=== PATIENT | female | born 1975 | race Caucasian/White ===

== ENCOUNTER 2017-04-29 19:43 | Observation (INO) | payer OTHER ==
[2017-04-29 20:30] LABS: URINE APPEARANCE CLEAR; URINE BILIRUBIN NEGATIVE (NEGATIVE); URINE COLOR LTYELLOW; URINE GLUCOSE (UA) NEGATIVE (NEGATIVE); URINE KETONE NEGATIVE (NEGATIVE); URINE NITRITE NEGATIVE (NEGATIVE); URINE PROTEIN NEGATIVE (NEGATIVE); URINE UROBILINOGEN NEGATIVE E.U./dl (0.2-1.0)
[2017-04-29 21:01] LABS: URINE BLOOD 1+ (NEGATIVE); URINE LEUK ESTERASE TRACE (NEGATIVE)
[2017-04-29] MEDS ORDERED: ACETAMINOPHEN 325 MG TABLET (FP) PO ONE (21:13)
[2017-04-29] MEDS ORDERED: ACETAMINOPHEN 325 MG TABLET (FP) ONE (21:16)
[2017-04-29 21:33] LABS: URINE MUCUS RARE; URINE RBC 1 /hpf (0-3); URINE WBC 6 /hpf (3-5)
--- NOTE | 2017-04-29 21:37 | PDOC ---
History of Present Illness - History of Present Illness Initial Comments: 04/29/17 23:19 Patient is a 41 year old female with significant medical hx of asthma, anemia, and anxiety who is presenting to the ED with one week of dizziness, nausea, frontal headache, and suprapubic pain. The patient reports that her dizziness is vertiginous, feeling as though the room is spinning. The patient's headache is not associated with any photophobia, vomiting, or weakness. She also denies any vomiting, diarrhea, fever, chills or urinary complaints. Patient reports she saw her doctor in the [facility] one month ago and said that one of her lab findings came back too low but she didn't have enough time to follow up. The patient also endorses concern for diabetes. Allergies: Penicillin Surgical Hx: Cholecystectomy <Kristen Dykes - Last Filed: 04/30/17 00:54> <Melania Wallace - Last Filed: 05/01/17 01:33> - General Chief Complaint: Pain Stated Complaint: DIZZINESS Time Seen by Provider: 04/29/17 21:27 Past History <Kristen Dykes - Last Filed: 04/30/17 00:54> - Past Medical History Anemia: Yes Asthma: Yes Kidney Stones: Yes - Surgical History Cholecystectomy: Yes - Immunization History Immunization Up to Date: No - Psycho/Social/Smoking Cessation Hx Anxiety: Yes Suicidal Ideation: No Smoking History: Current every day smoker Have you smoked in the past 12 months: Yes Number of Cigarettes Smoked Daily: 4 Information on smoking cessation initiated: No 'Breaking Loose' booklet given: 03/27/16 Hx Alcohol Use: No Drug/Substance Use Hx: No Substance Use Type: None Hx Substance Use Treatment: No <Melania Wallace - Last Filed: 05/01/17 01:33> - Past Medical History Allergies/Adverse Reactions: Allergies Allergy/AdvReac Type Severity Reaction Status Date / Time Penicillins Allergy Verified 04/29/17 19:51 Review of Systems - Review of Systems Comments:: 04/29/17 23:25 CONSTITUTIONAL: Absent: fever, chills, diaphoresis, generalized weakness, malaise, loss of appetite HEENT: Absent: rhinorrhea, nasal congestion, throat pain, throat swelling, difficulty swallowing, mouth swelling, ear pain, eye pain, visual changes CARDIOVASCULAR: Absent: chest pain, syncope, palpitations, irregular heart rate, lightheadedness , peripheral edema RESPIRATORY: Absent: cough, shortness of breath, dyspnea with exertion, orthopnea, wheezing, stridor, hemoptysis GASTROINTESTINAL: Present: nausea, suprapubic pain Absent: abdominal distension, vomiting, diarrhea, constipation, melena, hematochezia GENITOURINARY: Absent: dysuria, frequency, urgency, hesitancy, hematuria, flank pain, genital pain MUSCULOSKELETAL: Absent: myalgia, arthralgia, joint swelling SKIN: Absent: rash, itching, pallor HEMATOLOGIC/IMMUNOLOGIC: Absent: easy bleeding, easy bruising, lymphadenopathy, frequent infections ENDOCRINE: Absent: unexplained weight gain, unexplained weight loss, heat intolerance, cold intolerance NEUROLOGIC: Present: frontal headache, dizziness Absent: focal weakness or paresthesia, unsteady gait, seizure, mental status changes, bladder or bowel incontinence. PSYCHIATRIC: Absent: anxiety, depression, suicidal or homicidal ideation, hallucinations <Donis,Kristen - Last Filed: 04/30/17 00:54> *Physical Exam - Vital Signs Last Vital Signs Temp Pulse Resp BP Pulse Ox 99 F 81 18 119/74 100 04/29/17 19:53 04/29/17 19:53 04/29/17 19:53 04/29/17 19:53 04/29/17 19:53 - Physical Exam Comments: 04/29/17 23:26 GENERAL: Well developed, well nourished. Awake and alert. No acute distress. HEENT: Normocephalic, atraumatic. PERRLA, EOMI. No conjunctival pallor. Sclera are non- icteric. Moist mucous membranes. Oropharynx is clear. NECK: Supple. Full ROM. No JVD. Carotid pulses 2+ and symmetric, without bruits. No thyromegaly. No lymphadenopathy. CARDIOVASCULAR: Regular rate and rhythm. No murmurs, rubs, or gallops. Distal pulses are 2+ and symmetric. PULMONARY: No evidence of respiratory distress. Lungs clear to auscultation bilaterally. No wheezing, rales or rhonchi. ABDOMINAL: Soft. Non-tender. Non-distended. No rebound or guarding. No organomegaly. Normoactive bowel sounds. MUSCULOSKELETAL: Normal range of motion at all joints. No bony deformities or tenderness. No CVA tenderness. EXTREMITIES: No cyanosis. No clubbing. No edema. No calf tenderness. SKIN: Warm and dry. Normal capillary refill. No rashes. No jaundice. NEUROLOGICAL: Alert, awake, appropriate. Cranial nerves 2-12 intact. Normal speech. PSYCHIATRIC: Cooperative. Good eye contact. Appropriate mood and affect. <DonisKristen - Last Filed: 04/30/17 00:54> - Vital Signs Last Vital Signs Temp Pulse Resp BP Pulse Ox 99 F 81 18 119/74 100 04/29/17 19:53 04/29/17 19:53 04/29/17 19:53 04/29/17 19:53 04/29/17 19:53 <Melania Wallace - Last Filed: 05/01/17 01:33> ED Treatment Course - LABORATORY CBC & Chemistry Diagram: 04/29/17 22:05 04/29/17 22:05 - ADDITIONAL ORDERS Additional order review: Laboratory Results 04/29/17 04/29/17 04/29/17 23:00 22:05 20:13 Sodium 142 Potassium 3.6 Chloride 109 H Carbon Dioxide 24 Anion Gap 9 BUN 21 H Creatinine 0.7 Creat Clearance w eGFR > 60 Random Glucose 122 H D Calcium 8.5 Total Bilirubin 0.3 AST 20 D ALT 28 D Alkaline Phosphatase 77 Total Protein 7.3 Albumin 3.8 Urine Color Ltyellow Urine Appearance Clear Urine pH 6.0 Urine Protein Negative Urine Glucose (UA) Negative Urine Ketones Negative Urine Blood 1+ H Urine Nitrite Negative Urine Bilirubin Negative Urine Urobilinogen Negative Ur Leukocyte Esterase Trace H Urine RBC 1 Urine WBC 6 Ur Epithelial Cells Rare Urine Mucus Rare Urine HCG, Qual Negative Blood Type O POSITIVE Antibody Screen Negative 04/29/17 22:05 RBC 4.29 MCV 65.8 L MCHC 29.1 L RDW 21.1 H D MPV 8.8 Neutrophils % 57.7 D Lymphocytes % 30.5 D Monocytes % 7.6 Eosinophils % 3.0 D Basophils % 1.2 - RADIOLOGY Radiograph Interpretation: 04/30/17 00:54 [place] Line Attendant: (savita) Report Date: 04/30/2017 00:13:00 Report Status: Preliminary Begin of Report Content Referring Physician: Melania Wallace Patient Name: Cathleen Esquivel THIS IS A PRELIMINARY REPORT FROM [facility] DATE OF SERVICE: 2017-04-30 00:13:57.0 IMAGES: 40 EXAM: Transabdominal pelvic ultrasound and duplex evaluation of the ovaries HISTORY:Rule out torsion COMPARISON: None. FINDINGS:The uterus measures 10.7 x 8 x 7.5 cm. There is a fundal fibroid measuring 4.7 x 3 x 4.7 cm. Endometrium is normal in thickness measuring 9 mm. Incidental note is made of a nabothian cyst. Right ovary measures 2.7 x 2.3 x 2.6 cm and the left ovary measures 2.5 x 1.6 x 2.4 cm. There is bilateral ovarian blood flow with arterial waveforms demonstrated. No free fluid. IMPRESSION: 1. No evidence for ovarian torsion. 2. Mildly enlarged uterus demonstrating a 4.7 cm fundal fibroid. THIS DOCUMENT HAS BEEN ELECTRONICALLY SIGNED Amalia MD Param 04/30/2017 00:50 MARY ALICE Robbins. Please call [facility]reader [phone] ([phone]) with questions. End of Report Content - Medications Given in the ED: ED Medications Discontinued Medications Generic Name Dose Route Start Last Admin Trade Name Freq PRN Reason Stop Dose Admin Acetaminophen 650 mg 04/29/17 21:13 04/29/17 21:17 Tylenol - PO 04/29/17 21:14 650 mg ONCE ONE Administration <Kristen Dykes - Last Filed: 04/30/17 00:54> - LABORATORY CBC & Chemistry Diagram: 04/30/17 07:20 04/30/17 07:20 - ADDITIONAL ORDERS Additional order review: Laboratory Results 04/29/17 20:13 Urine Color Ltyellow Urine Appearance Clear Urine pH 6.0 Urine Protein Negative Urine Glucose (UA) Negative Urine Ketones Negative Urine Blood 1+ H Urine Nitrite Negative Urine Bilirubin Negative Urine Urobilinogen Negative Ur Leukocyte Esterase Trace H Urine HCG, Qual Negative - Medications Given in the ED: ED Medications Discontinued Medications Generic Name Dose Route Start Last Admin Trade Name Freq PRN Reason Stop Dose Admin Acetaminophen 650 mg 04/29/17 21:13 04/29/17 21:17 Tylenol - PO 04/29/17 21:14 650 mg ONCE ONE Administration <Melania Wallace - Last Filed: 05/01/17 01:33> Medical Decision Making - Medical Decision Making 04/29/17 21:39 41 yo female p/w multiple complaints -she saw her PCP in the [facility] last month but could make it for followup =she was told she was very anemia -ROS 1-dizziiness 2-suprapubic discomfort 3-vaginal discomfort 4-frontal headache 5-nausea 6-coughing <Melania Wallace - Last Filed: 05/01/17 01:33> *DC/Admit/Observation/Transfer - Attestations Scribe Attestion: 04/29/17 23:26 Documentation prepared by Kristen Dykes, acting as medical staff coordinator for Melania Wallace MD. <Kristen Dykes - Last Filed: 04/30/17 00:54> <Melania Wallace - Last Filed: 05/01/17 01:33> Diagnosis at time of Disposition: Abdominal pain - Referrals
[2017-04-29 22:33] LABS: BASOPHIL 1.2 % (0-2.0); MCHC 29.1 g/dl (32.0-36.0); MEAN CELL VOLUME 65.8 fl (80-96); MEAN PLT VOLUME 8.8 fl (7.5-11.1); NEUTROPHILS 57.7 % (42.8-82.8); PLATELET COUNT 175 K/MM3 (134-434); RDW 21.1 % (11.6-15.6); WHITE BLOOD COUNT 4.8 K/mm3 (4.0-10.0)
[2017-04-29 23:10] LABS: ALBUMIN 3.8 g/dl (3.4-5.0); ANION GAP 9 (8-16); BILIRUBIN,TOTAL 0.3 mg/dL (0.2-1.0); CALCIUM 8.5 mg/dL (8.5-10.1); CO2 24 mmol/L (21-32); COCKROFT - GAULT 126.395; CREATININE 0.7 mg/dL (0.55-1.02); GLUCOSE,RANDOM 122 mg/dL (74-106); SGOT/AST 20 U/L (15-37); SGPT/ALT 28 U/L (12-78); TOT PROT 7.3 g/dl (6.4-8.2)
[2017-04-29 23:11] LABS: ALK PHOS 77 U/L (45-117)
[2017-04-29 23:14] LABS: MCH 19.1 pg (25.7-33.7)
[2017-04-29 23:24] LABS: INR 0.97 (0.82-1.09); PROTHROMBIN TIME (PATIENT) 10.7 SEC (9.98-11.88)
[2017-04-29] MEDS ORDERED: KETOROLAC TROMETHAMINE 30 MG/1 ML VIAL ONE (23:45)
[2017-04-29] MEDS ORDERED: KETOROLAC TROMETHAMINE 30 MG/1 ML VIAL IVPUSH ONE (23:50)
[2017-04-30] MEDS ORDERED: SODIUM CHLORIDE 1,000 ML IV STA (01:26)
[2017-04-30 01:46] LABS: ANISOCYTOSIS 2+; HYPOCHROMIA 2+; MICROCYTOSIS 2+
[2017-04-30] MEDS ORDERED: HYDROmorphone HCL CARPU-JECT 1 MG/1 ML DISP.SYRIN IVPB ONE (01:47)
[2017-04-30] MEDS ORDERED: HYDROmorphone HCL CARPU-JECT 1 MG/1 ML DISP.SYRIN ONE ×2 (01:50→06:59)
[2017-04-30] MEDS ORDERED: MAG HYDROX/AL HYDROX/SIMETH 30 ML UNIT-DOSE CUP PO ONE (03:33)
[2017-04-30] MEDS ORDERED: SUCRALFATE 1 GM TABLET (FP) PO ONE (03:33)
[2017-04-30] MEDS ORDERED: PANTOPRAZOLE SODIUM 40 MG in SODIUM CHLORIDE 100 ML IVPB ONE (03:33)
[2017-04-30] MEDS ORDERED: FAMOTIDINE 20 MG/50 ML IVPB 50 ML IVPB ONE ×2 (03:33→03:34)
[2017-04-30] MEDS ORDERED: PANTOPRAZOLE SODIUM 100 ML IVPB ONE (03:34)
[2017-04-30] MEDS ORDERED: MAG HYDROX/AL HYDROX/SIMETH 30 ML UNIT-DOSE CUP ONE (03:41)
[2017-04-30] MEDS ORDERED: SUCRALFATE 1 GM TABLET (FP) ONE (03:41)
--- NOTE | 2017-04-30 05:02 | PDOC ---
*Physical Exam - Vital Signs Last Vital Signs Temp Pulse Resp BP Pulse Ox 99 F 81 18 119/74 100 04/29/17 19:53 04/29/17 19:53 04/29/17 19:53 04/29/17 19:53 04/29/17 19:53 ED Treatment Course - LABORATORY CBC & Chemistry Diagram: 04/29/17 22:05 04/29/17 22:05 - ADDITIONAL ORDERS Additional order review: Laboratory Results 04/29/17 04/29/17 04/29/17 23:00 22:05 22:05 INR 0.97 D-Dimer < 200 Sodium Potassium Chloride Carbon Dioxide Anion Gap BUN Creatinine Creat Clearance w eGFR Random Glucose Calcium Total Bilirubin AST ALT Alkaline Phosphatase Total Protein Albumin Urine Color Urine Appearance Urine pH Urine Protein Urine Glucose (UA) Urine Ketones Urine Blood Urine Nitrite Urine Bilirubin Urine Urobilinogen Ur Leukocyte Esterase Urine RBC Urine WBC Ur Epithelial Cells Urine Mucus Urine HCG, Qual Blood Type O POSITIVE Antibody Screen Negative 04/29/17 04/29/17 22:05 20:13 INR D-Dimer Sodium 142 Potassium 3.6 Chloride 109 H Carbon Dioxide 24 Anion Gap 9 BUN 21 H Creatinine 0.7 Creat Clearance w eGFR > 60 Random Glucose 122 H D Calcium 8.5 Total Bilirubin 0.3 AST 20 D ALT 28 D Alkaline Phosphatase 77 Total Protein 7.3 Albumin 3.8 Urine Color Ltyellow Urine Appearance Clear Urine pH 6.0 Urine Protein Negative Urine Glucose (UA) Negative Urine Ketones Negative Urine Blood 1+ H Urine Nitrite Negative Urine Bilirubin Negative Urine Urobilinogen Negative Ur Leukocyte Esterase Trace H Urine RBC 1 Urine WBC 6 Ur Epithelial Cells Rare Urine Mucus Rare Urine HCG, Qual Negative Blood Type Antibody Screen 04/29/17 22:05 RBC 4.29 MCV 65.8 L MCHC 29.1 L RDW 21.1 H D MPV 8.8 Neutrophils % 57.7 D Lymphocytes % 30.5 D Monocytes % 7.6 Eosinophils % 3.0 D Basophils % 1.2 - Medications Given in the ED: ED Medications Discontinued Medications Generic Name Dose Route Start Last Admin Trade Name Freq PRN Reason Stop Dose Admin Acetaminophen 650 mg 04/29/17 21:13 04/29/17 21:17 Tylenol - PO 04/29/17 21:14 650 mg ONCE ONE Administration Al Hydroxide/Mg Hydroxide 30 ml 04/30/17 03:33 04/30/17 03:44 Mylanta Oral Suspension - PO 04/30/17 03:34 30 ml ONCE ONE Administration Hydromorphone HCl 0.5 mg 04/30/17 01:47 04/30/17 01:58 Dilaudid Injection - IVPB 04/30/17 01:48 0.5 mg ONCE ONE Administration Sodium Chloride 1,000 mls @ 1,000 mls/hr 04/30/17 01:26 04/30/17 01:58 Normal Saline - IV 04/30/17 02:25 1,000 mls/hr ASDIR STA Administration Pantoprazole Sodium 40 mg/ 100 mls @ 200 mls/hr 04/30/17 03:33 04/30/17 03:45 Sodium Chloride IVPB 04/30/17 04:02 200 mls/hr ONCE ONE Administration Famotidine/Sodium Chloride 50 mls @ 100 mls/hr 04/30/17 03:33 04/30/17 03:40 Pepcid 20 Mg Premixed Ivpb - IVPB 04/30/17 04:02 100 mls/hr ONCE ONE Administration Ketorolac Tromethamine 30 mg 04/29/17 23:50 04/29/17 23:50 Toradol Injection - IVPUSH 04/29/17 23:51 30 mg NOW ONE Administration Sucralfate 1 gm 04/30/17 03:33 04/30/17 03:44 Carafate - PO 04/30/17 03:34 1 gm ONCE ONE Administration Medical Decision Making - Medical Decision Making 04/30/17 05:01 Case signed out to me by DR. Wallace. Patient re-examined by me. Labs and imaging reviewed. No acute findings. Patient continues to have persistent abdominal pain despite numerous medications. Decision was made to observe patient. Case discussed with DR. Valenzuela. Pt to be placed on med/surg obs *DC/Admit/Observation/Transfer Diagnosis at time of Disposition: Abdominal pain Qualifiers: Abdominal location: unspecified location Qualified Code(s): R10.9 - Unspecified abdominal pain - Discharge Dispostion Condition at time of disposition: Stable Admit: Yes - Referrals Referrals: STAFF,NOT ON [Primary Care Provider] - - Patient Instructions - Post Discharge Activity
--- NOTE | 2017-04-30 05:19 | HP ---
CHIEF COMPLAINT: abdominal pain PCP: [facility] [place] HISTORY OF PRESENT ILLNESS: This is a 41 year old female with a past medical history of asthma, anemia, anxiety and kidney stones who presented to the ED with a complaint of dizziness , nausea, headache and suprapubic pain for about one week. Pt reports she has taken multiple medications over the past week but the pain has always returned. Pt is concerned about diabetes as her PCP recently told her that she was borderline. She is also concerned about her anemia as her recent lab work indicated she may need a transfusion. Pt states her LMP was 04/15/17 and it was normal. She denies any chest pain, palpitations, vomiting, diarrhea, constipation, dysuria, frequency or urgency. At present, pt reports pain not as severe as was but is afraid it will recur. ER course was notable for: (1) Hgb 8.2, glucose 122 (2) us c/w ovarian cyst and uterine fibroid (3) CT done Recent Travel: pt denies PAST MEDICAL HISTORY: asthma anemia renal stones PAST SURGICAL HISTORY: cholecystectomy Social History: Smokin cig/day Alcohol: occ- last drink 2-3 weeks ago Drugs: pt denies Family History: mother alive and well, thyroid issue and migraines father in his 30s, HIV/AIDS related 4 sisters- 1 with migraines and 1 with ovary problems 1 brother- no medical problems Allergies Penicillins Allergy (Verified 04/29/17 19:51) HOME MEDICATIONS: pt denies any routine home medications REVIEW OF SYSTEMS CONSTITUTIONAL: Absent: fever, chills, diaphoresis, generalized weakness, malaise, loss of appetite, weight change HEENT: Absent: rhinorrhea, nasal congestion, throat pain, throat swelling, difficulty swallowing, mouth swelling, ear pain, eye pain, visual changes CARDIOVASCULAR: Absent: chest pain, syncope, palpitations, irregular heart rate, lightheadedness , peripheral edema RESPIRATORY: Absent: cough, shortness of breath, dyspnea with exertion, orthopnea, wheezing, stridor, hemoptysis GASTROINTESTINAL: abdominal pain, nausea Absent: abdominal distension, vomiting, diarrhea, constipation, melena, hematochezia GENITOURINARY: Absent: dysuria, frequency, urgency, hesitancy, hematuria, flank pain, genital pain MUSCULOSKELETAL: Absent: myalgia, arthralgia, joint swelling, back pain, neck pain SKIN: Absent: rash, itching, pallor HEMATOLOGIC/IMMUNOLOGIC: Absent: easy bleeding, easy bruising, lymphadenopathy, frequent infections ENDOCRINE: Absent: unexplained weight gain, unexplained weight loss, heat intolerance, cold intolerance NEUROLOGIC: headache, dizziness Absent: focal weakness or paresthesias, unsteady gait, seizure, mental status changes, bladder or bowel incontinence PSYCHIATRIC: Absent: anxiety, depression, suicidal or homicidal ideation, hallucinations. PHYSICAL EXAMINATION Vital Signs - 24 hr 3 04/29/17 19:53 Temperature 99 F Pulse Rate 81 Respiratory 18 Rate Blood Pressure 119/74 O2 Sat by Pulse 100 Oximetry (%) GENERAL: Awake, alert, and fully oriented, in no acute distress. HEAD: Normal with no signs of trauma. EYES: Pupils equal, round and reactive to light, extraocular movements intact, sclera anicteric, conjunctiva clear. No lid lag. EARS, NOSE, THROAT: Ears normal, nares patent, oropharynx clear without exudates. Moist mucous membranes. NECK: Normal range of motion, supple without lymphadenopathy, JVD, or masses. LUNGS: Breath sounds equal, clear to auscultation bilaterally. No wheezes, and no crackles. No accessory muscle use. HEART: Regular rate and rhythm, normal S1 and S2 without murmur, rub or gallop. ABDOMEN: Soft, not distended, normoactive bowel sounds, no guarding, no rebound , no masses. No hepatomegaly or splenomegaly. tender to palpation suprapubic area MUSCULOSKELETAL: Normal range of motion at all joints. No bony deformities or tenderness. No CVA tenderness. UPPER EXTREMITIES: 2+ pulses, warm, well-perfused. No cyanosis. No clubbing. No peripheral edema. LOWER EXTREMITIES: 2+ pulses, warm, well-perfused. No calf tenderness. No peripheral edema. NEUROLOGICAL: Cranial nerves II-XII intact. Normal speech. Normal gait. PSYCHIATRIC: Cooperative. Good eye contact. Appropriate mood and affect. SKIN: Warm, dry, normal turgor, no rashes or lesions noted, normal capillary refill. Laboratory Results - last 24 hr 3 04/29/17 04/29/17 04/29/17 04/29/17 20:13 22:05 22:05 23:00 WBC 4.8 D RBC 4.29 Hgb 8.2 L Hct 28.2 L MCV 65.8 L MCHC 29.1 L RDW 21.1 H D Plt Count 175 MPV 8.8 Neutrophils % 57.7 D Lymphocytes % 30.5 D Monocytes % 7.6 Eosinophils % 3.0 D Basophils % 1.2 Hypochromic-Microcytic 2+ Anisocytosis 2+ Microcytosis 2+ INR 0.97 D-Dimer < 200 Sodium 142 Potassium 3.6 Chloride 109 H Carbon Dioxide 24 Anion Gap 9 BUN 21 H Creatinine 0.7 Creat Clearance w eGFR > 60 Random Glucose 122 H D Calcium 8.5 Total Bilirubin 0.3 AST 20 D ALT 28 D Alkaline Phosphatase 77 Total Protein 7.3 Albumin 3.8 Urine Color Ltyellow Urine Appearance Clear Urine pH 6.0 Urine Protein Negative Urine Glucose (UA) Negative Urine Ketones Negative Urine Blood 1+ H Urine Nitrite Negative Urine Bilirubin Negative Urine Urobilinogen Negative Ur Leukocyte Esterase Trace H Urine RBC 1 Urine WBC 6 Ur Epithelial Cells Rare Urine Mucus Rare Urine HCG, Qual Negative Blood Type O POSITIVE Antibody Screen Negative Imaging EXAM: Transabdominal pelvic ultrasound and duplex evaluation of the ovaries THIS IS A PRELIMINARY REPORT FROM [facility] REGISTERED NURSE DATE OF SERVICE: 2017-04-30 00:13:57.0 IMAGES: 40 HISTORY:Rule out torsion COMPARISON: None. FINDINGS:The uterus measures 10.7 x 8 x 7.5 cm. There is a fundal fibroid measuring 4.7 x 3 x 4.7 cm. Endometrium is normal in thickness measuring 9 mm. Incidental note is made of a nabothian cyst. Right ovary measures 2.7 x 2.3 x 2.6 cm and the left ovary measures 2.5 x 1.6 x 2.4 cm. There is bilateral ovarian blood flow with arterial waveforms demonstrated. No free fluid. IMPRESSION: 1. No evidence for ovarian torsion. 2. Mildly enlarged uterus demonstrating a 4.7 cm fundal fibroid. EXAM: CT ABDOMEN AND PELVIS WITH CONTRAST THIS IS A PRELIMINARY REPORT FROM [facility] REG[facility] NURSE IMAGES: 519 EXAM DATE AND TIME: 2017-04-30 02:18:06.0 No bowel obstruction, colitis, free fluid or free air. Appendix not seen. No pericecal inflammation to suggest acute appendicitis. Unremarkable pancreas and gallbladder. Subcentimeter cortical hypodensities and punctate nonobstructing stones bilateral kidneys. Right renal cortical scarring. Enlarged uterus containing a 4.5 cm fundal fibroid. 2.5 cm right ovarian cyst. Bilateral tubal ligation clips. Borderline hepatomegaly. ASSESSMENT/PLAN: 41yF with PMH asthma, anemia, anxiety, renal stones, cholecystectomy presented with dizziness, nausea, headache, abdominal pain. She is being admitted for further observation. suprapubic pain - likely due to ovarian cyst or fibroid, will need COMPARATIVE SOCIOLOGY PROFESSOR f/u as outpatient, pt aware of same - zofran PRN for nausea - nurse to call if further abdominal pain - NS @ 75cc/hr - COMPARATIVE SOCIOLOGY PROFESSOR consult ordered Anemia - repeat CBC in am - likely near baseline Hgb renal stones - not likely cause of pain, denies flank pain - observe for now. DVT PPX - low risk, expected LOS <48h, defer chemoprophylaxis for now. FEN - NS @ 75cc/hr - repeat BMP ordered for am - regular diet as tolerated, if vomiting, change to clear liquid Dispo: pt requires inpatient observation for management of her emergent condition Visit type - Emergency Visit Emergency Visit: Yes ED Registration Date: 04/29/17 Care time: The patient presented to the Emergency Department on the above date and was hospitalized for further evaluation of their emergent condition. - New Patient This patient is new to me today: Yes Date on this admission: 04/30/17 - Critical Care Critical Care patient: No
[2017-04-30] MEDS ORDERED: SODIUM CHLORIDE 1,000 ML IV SCH (06:00)
[2017-04-30] MEDS ORDERED: HYDROmorphone HCL CARPU-JECT 1 MG/1 ML DISP.SYRIN IVPUSH ONE (06:58)
[2017-04-30] MEDS ORDERED: ONDANSETRON 4 MG/2 ML VIAL ONE (07:03)
[2017-04-30] MEDS: ONDANSETRON 4 MG/2 ML VIAL IVPB PRN ×2 (07:04→18:31)
[2017-04-30 07:31] LABS: BASOPHIL 0.6 % (0-2.0); EOSINOPHIL 2.6 % (0-4.5); MEAN CELL VOLUME 65.8 fl (80-96); MEAN PLT VOLUME 8.1 fl (7.5-11.1); NEUTROPHILS 58.2 % (42.8-82.8); PLATELET COUNT 137 K/MM3 (134-434); RDW 21.3 % (11.6-15.6); WHITE BLOOD COUNT 4.4 K/mm3 (4.0-10.0)
[2017-04-30 07:38] LABS: MCH 19.7 pg (25.7-33.7)
[2017-04-30 07:56] VITALS: BMI 26.8
[2017-04-30 07:59] LABS: COCKROFT - GAULT 151.436; CREATININE 0.6 mg/dL (0.55-1.02)
[2017-04-30] MEDS ORDERED: diphenhydrAMINE HCL 25 MG CAPSULE (FP) PO ONE (08:45)
[2017-04-30] MEDS: NICOTINE 7 MG/24 HOURS TOPICAL PATCH TD SCH (10:35)
[2017-04-30] MEDS ORDERED: morphine CARPU-JECT 2 MG/1 ML DISP.SYRIN IVPUSH ONE ×2 (12:26)
[2017-04-30] MEDS: DOCUSATE SODIUM 100 MG CAPSULE (FP) PO SCH ×2 (13:03→21:55)
[2017-04-30] MEDS: oxyCODONE HCL 5 MG TABLET PO PRN (17:07)
[2017-04-30] MEDS ORDERED: MAGNESIUM OXIDE 400 MG TABLET (FP) PO ONE (18:11)
[2017-04-30] MEDS: morphine CARPU-JECT 2 MG/1 ML DISP.SYRIN IVPUSH PRN (18:32)
[2017-04-30] MEDS: SODIUM CHLORIDE 1,000 ML IV SCH (18:33)
[2017-05-01] MEDS: morphine CARPU-JECT 2 MG/1 ML DISP.SYRIN IVPUSH PRN (00:49)
[2017-05-01] MEDS: oxyCODONE HCL 5 MG TABLET PO PRN (02:24)
--- NOTE | 2017-05-01 03:07 | HOSP ---
Subjective - Review of Symptoms Events since last encounter: Nurse called to report pt in pain and pain medications not helping. Subjective: Pt reports morphine only helping for a short period of time, less than an hour. Pt unable to state if pain is the same, worse or better from yesterday when she came in. reports pain is in her lower abdomen. She states that the dilaudid she was given yesterday in the ED gave her a knot in her stomach, upper abdomen. She states that the pain is crampy in nature at times. Physical Examination Vital Signs: Vital Signs Temperature 98.6 F 04/30/17 23:01 Pulse Rate 73 04/30/17 23:01 Respiratory Rate 21 04/30/17 23:01 Blood Pressure 109/58 04/30/17 23:01 O2 Sat by Pulse Oximetry (%) 96 04/30/17 21:00 Constitutional: Yes: Calm Cardiovascular: Yes: WNL Respiratory: Yes: WNL Gastrointestinal: Yes: Normal Bowel Sounds, Soft, Tenderness (suprapubic and R& L LQ) Labs: CBC, BMP 04/30/17 07:20 04/30/17 07:20 Hospitalist Encounter Assessment: Abdominal pain - discussed at length options for pain management. Pt refusing toradol as " it never works for me". States dilaudid took 30 minutes to work and upset her stomach, states morphine does not last long enough, took "a little pill" a little while ago that hasn't worked (oxycodone). DW patient and agreed will give an additional dose of morphine now. Addendum: - received telephone call from floor nurse @ 310am, pt requesting dilaudid, not morphine. Will give dilaudid 0.5mg IVPB.
[2017-05-01] MEDS ORDERED: HYDROmorphone HCL CARPU-JECT 1 MG/1 ML DISP.SYRIN IVPB ONE (03:09)
[2017-05-01] MEDS: SODIUM CHLORIDE 1,000 ML IV SCH (06:02)
[2017-05-01 09:01] VITALS: BP 110/63; PULSE 78; TEMP 98.2
[2017-05-01] MEDS: DOCUSATE SODIUM 100 MG CAPSULE (FP) PO SCH (09:19)
[2017-05-01] MEDS: NICOTINE 7 MG/24 HOURS TOPICAL PATCH TD SCH (09:19)
--- NOTE | 2017-05-01 11:10 | DS ---
Physical Exam: SUBJECTIVE: Patient seen and examined. She is feeling better, her pain is tolerable and she ate breakfast. Left flank pain resolved OBJECTIVE: Vital Signs Period Temp Pulse Resp BP Sys/Go Pulse Ox Last 24 Hr 98.1 F-98.6 F 59-78 17-21 104-110/55-63 96 PE Neuro: alert, awake, cn 2-12intact Pulm: clear, no sob, no wheezing CV: s1 s2 rrr no mrg Abd: lower abd tenderness, s + bs Ext: warm, no le edema HOSPITAL COURSE: Date of Admission:04/30/17 Date of Discharge: 05/01/17 Minutes to complete discharge: 37 Discharge Summary Reason For Visit: ABDOMINAL PAIN Current Active Problems Abdominal pain (Acute) Acute pyelonephritis (Acute) Retained ureteral stent (Acute) Hospital Course: Initial Hospital Course: Briefly, this 41 year old female with a past medical history of asthma, anemia, anxiety and kidney stones presented to the ED with a complaint of dizziness, nausea, headache and suprapubic pain for about one week. Pt reported taking multiple medications over the past week but the pain has always returned. Pt is concerned about diabetes as her PCP recently told her that she was borderline. She is also concerned about her anemia as her recent lab work indicated she may need a transfusion. Pt states her LMP was 04/15/17 and it was normal. Imaging CTAP: 5.2 x4.3cm uterine mass fibroid, 2.5cm right adnexal hemorrhagic cyst, small sliding hiatal hernia, non obstructive L renal stone 1mm distal R stone mild proximal hydronephrosis, Bilateral tubal ligation clips Renal US: unremarkable Bladder US: 4.7 fundal fibroid Subsequent Hospital Course/Progress Note/Discharge Summary: Assessment: 41 year old female with PMH asthma, anemia, anxiety, renal stones, cholecystectomy presented with dizziness, nausea, headache, abdominal pain. She is being admitted for further observation. Plan: suprapubic pain - Likely due to uterine fibroid - Possible passage of small 1mm stone - Pain resolved - Follow up appt made with PODIATRIC PHYSICIAN as listed above for further work up of fibroid, pt aware and agrees to above plan Anemia - Hgb stable Renal Stones - Non obstructive L renal stones - outpt follow up with urology Dispo: - Home w/ above plan and follow up, pt aware and agrees to above plan Condition: Stable - Instructions Diet, Activity, Other Instructions: Please return to the ED for any new persistent, or worsening symptoms. Follow up with your PCP in 1 week Please keep scheduled appt with your PODIATRIC PHYSICIAN for next Saturday05-07-17 @ 1200 for sonogram and evaluation of your fibroids. Dr. Renee Oglesby [phone] Follow up with primary urologist for any further issues with kidney stones Referrals: STAFF,NOT ON [Primary Care Provider] - Renee Oglesby [Non Staff, Medical] - 1 Week (05-07-17 @ 1200 for follow up [facility] [address] [place] [address]) Disposition: HOME - Home Medications Comprehensive Discharge Medication List: Ambulatory Orders Oxycodone HCl/Acetaminophen [Percocet 5-325 mg Tablet] 1 tab PO Q6H #10 tablet MDD 4 05/01/17 This patient is new to me today: Yes Date on this admission: 05/01/17 Emergency Visit: Yes ED Registration Date: 04/30/17 Care time: The patient presented to the Emergency Department on the above date and was hospitalized for further evaluation of their emergent condition. Critical Care patient: No - Discharge Referral Referred to [facility] No
--- NOTE | 2017-05-01 19:08 | CON.OBG ---
Consult Consult Specialty:: spindle repairer - History of Present Illness Chief Complaint: anemia, low abdominal pain, hx of fibroid uterus History of Present Illness: 41 yo with 6 previous c/s , known case of fibroid uterus and anemia admitted for dizziness and low abdominal pain, no fever, no vaginal bleeding , no vaginal discharge, no dysuria, patient has been followed by her ob /spindle repairer in [place], had pap in february normal - History Source History Provided By: Patient Limitations to Obtaining History: No Limitations - Past Medical History Pulmonary: Yes: Asthma. No: Bronchitis, Cancer, COPD, O2 Dependent, Pneumonia, Previously Intubated, Pulmonary Embolus, Pulmonary Fibrosis, Sleep Apnea, Other Renal/: Yes: Hematuria, Renal Calculi, UTI ...LMP: 03/21/16 ...: No Psych: Yes: Anxiety, Panic. No: Addictions, Bipolar, Depression, Psychosis, Schizophrenia, Other - Past Surgical History Past Surgical History: Yes: Cholecystectomy, (x4). No: None, AAA Repair, AICD, Amputation, Appendectomy, Arthrosocopy, AV Fistula/Graft, Bariatric Surgery, Breast Biopsy, Bypass, CABG, Carotid Endarterectomy, Cataract Removal, Colectomy, Colonoscopy, Colostomy, Craniotomy, Cystectomy, Hernia Repair, Hysterectomy, Ileal Conduit, Ileosotomy, Joint Replacement, Kidney Transplant, Laminectomy, Liver Transplant, Mastectomy, Nephrectomy, Oopherectomy, Orchiectomy, Permanent Pacemaker, Prostatectomy, Splenectomy, Stent, Thoracotomy, TURP, Tonsillectomy, Tubal Ligation, Upper Endoscopy, Valve Replacement, Vasectomy, Vein Stripping/Ligation - Alcohol/Substance Use Hx Alcohol Use: No History of Substance Use: reports: None - Smoking History Smoking history: Current every day smoker Have you smoked in the past 12 months: Yes Aproximately how many cigarettes per day: 4 - Social History ADL: Independent History of Recent Travel: No Home Medications - Allergies Allergies/Adverse Reactions: Allergies Allergy/AdvReac Type Severity Reaction Status Date / Time Penicillins Allergy Verified 04/29/17 19:51 - Home Medications Home Medications: Ambulatory Orders Oxycodone HCl/Acetaminophen [Percocet 5-325 mg Tablet] 1 tab PO Q6H #10 tablet MDD 4 05/01/17 Review of Systems - Review of Systems Constitutional: reports: Weakness Eyes: reports: No Symptoms HENT: reports: No Symptoms Neck: reports: No Symptoms Cardiovascular: reports: No Symptoms Respiratory: reports: No Symptoms Gastrointestinal: reports: Abdominal Pain Genitourinary: reports: No Symptoms Breasts: reports: No Symptoms Reported Musculoskeletal: reports: No Symptoms Neurological: reports: No Symptoms Physical Exam-SIGNAL FITTER Vital Signs: Vital Signs Temperature 98.2 F 05/01/17 08:59 Pulse Rate 78 05/01/17 08:59 Respiratory Rate 18 05/01/17 08:59 Blood Pressure 110/63 05/01/17 08:59 O2 Sat by Pulse Oximetry (%) 96 04/30/17 21:00 Constitutional: Yes: Well Nourished, No Distress, Calm Eyes: Yes: WNL, Conjunctiva Clear, EOM Intact HENT: Yes: WNL, Atraumatic, Normocephalic Neck: Yes: WNL, Supple, Trachea Midline Cardiovascular: Yes: WNL, Regular Rate and Rhythm Respiratory: Yes: WNL, Regular, CTA Bilaterally Gastrointestinal: Yes: WNL, Other (c/s scar) ...Rectal Exam: Yes: Deferred Renal/: Yes: WNL Pelvis: Yes: WNL External Genitalia: Yes: Normal Internal Exam Deferred: No Vaginal Exam: Yes: Normal Cervix: Yes: Normal Uterus: Yes: Enlarged, Mass, Tender Adnexa: Not Palpable: Left, Right Breast(s): Yes: WNL Musculoskeletal: Yes: WNL Extremities: Yes: WNL Integumentary: Yes: WNL Neurological: Yes: WNL, Alert, Oriented ...Motor Strength: WNL Psychiatric: Yes: WNL, Alert, Oriented Labs: CBC, BMP 04/30/17 07:20 04/30/17 07:20 Problem List - Problems (1) Abdominal pain Code(s): R10.9 - UNSPECIFIED ABDOMINAL PAIN Qualifiers: Abdominal location: unspecified location Qualified Code(s): R10.9 - Unspecified abdominal pain (2) Fibroid uterus Code(s): D25.9 - LEIOMYOMA OF UTERUS, UNSPECIFIED Qualifiers: Uterine leiomyoma location: intramural Qualified Code(s): D25.1 - Intramural leiomyoma of uterus Assessment/Plan r/o fibroid degenration, , follow up with her steam plant control room operator advised, motrin prn,. iron , vit, managment of fibroid discussed, patient wants to follow up with her ob/ spindle repairer next week
== END 2017-05-01 11:40 | disposition home or self-care (01) ==
LOC: JER 19:43 → JERBED 04-30 05:02 → J6S 04-30 08:05
PROVIDERS: ADMIT Internal Medicine; ATTEND Nurse Practitioner Acute Care
PROC: 3E033NZ Introduction of Analgesics, Hypnotics, Sedatives into Peripheral Vein, Percutaneous Approach (ICD-10-PCS; principal; 2017-04-30)
PROC: 3E033GC Introduction of Other Therapeutic Substance into Peripheral Vein, Percutaneous Approach (ICD-10-PCS; 2017-04-30)
PROC: 3E0337Z Introduction of Electrolytic and Water Balance Substance into Peripheral Vein, Percutaneous Approach (ICD-10-PCS; 2017-04-30)
PROC: 3E0333Z Introduction of Anti-inflammatory into Peripheral Vein, Percutaneous Approach (ICD-10-PCS; 2017-04-30)
DX: R10.30 Lower abdominal pain, unspecified (principal); N20.0 Calculus of kidney; D64.9 Anemia, unspecified; N10 Acute pyelonephritis; Z96.0 Presence of urogenital implants; F17.210 Nicotine dependence, cigarettes, uncomplicated; D25.1 Intramural leiomyoma of uterus; J45.909 Unspecified asthma, uncomplicated; F41.9 Anxiety disorder, unspecified
CPT/HCPCS: 36415; 74177-TC; 76775-TC; 76856-TC; 80048; 80053; 81003; 81015; 83735; 84703; 85025; 85379; 85610; 86850; 86900; 86901; 99285-25; G0378

== ENCOUNTER 2017-10-26 19:17 | Emergency (ER) | payer OTHER ==
[2017-10-26 19:21] VITALS: BP 117/81; PULSE 59; BMI 27.2
[2017-10-26] MEDS ORDERED: ONDANSETRON 4 MG/2 ML VIAL IVPUSH ONE (19:50)
[2017-10-26] MEDS ORDERED: KETOROLAC TROMETHAMINE 30 MG/1 ML VIAL IVPUSH ONE (19:50)
[2017-10-26] MEDS ORDERED: SODIUM CHLORIDE 0.9% 1000 ML INFUS.BAG IV ONE (19:50)
[2017-10-26] MEDS ORDERED: KETOROLAC TROMETHAMINE 30 MG/1 ML VIAL ONE (19:53)
[2017-10-26] MEDS ORDERED: FAMOTIDINE 20 MG/50 ML IVPB 20 MG/50 ML MG IVPB ONE (19:53)
[2017-10-26] MEDS ORDERED: ONDANSETRON 4 MG/2 ML VIAL ONE (19:53)
[2017-10-26 19:55] LABS: URINE APPEARANCE CLEAR; URINE BILIRUBIN NEGATIVE (NEGATIVE); URINE BLOOD 3+ (NEGATIVE); URINE COLOR DK. RED; URINE GLUCOSE (UA) NEGATIVE (NEGATIVE); URINE KETONE 1+ (NEGATIVE)
[2017-10-26 20:01] LABS: URINE MUCUS RARE; URINE NITRITE POSITIVE (NEGATIVE); URINE PROTEIN 3+ (NEGATIVE); URINE RBC 7178 /hpf (0-3); URINE WBC 688 /hpf (3-5); YEAST MANY
[2017-10-26 20:16] LABS: BASOPHIL 0.7 % (0-2.0); MCH 24.5 pg (25.7-33.7); MCHC 31.7 g/dl (32.0-36.0); MEAN CELL VOLUME 77.3 fl (80-96); MEAN PLT VOLUME 8.3 fl (7.5-11.1); NEUTROPHILS 66.8 % (42.8-82.8); PLATELET COUNT 173 K/MM3 (134-434); RDW 21.6 % (11.6-15.6); WHITE BLOOD COUNT 6.8 K/mm3 (4.0-10.0)
[2017-10-26] MEDS: FAMOTIDINE IV 20 MG/12 ML VIAL IVPUSH SCH ×2 (20:16→22:00)
--- NOTE | 2017-10-26 20:18 | PDOC ---
History of Present Illness - General Chief Complaint: Nausea/Vomiting Stated Complaint: ABD PAIN Time Seen by Provider: 10/26/17 19:31 History Source: Patient Exam Limitations: No Limitations - History of Present Illness Initial Comments: 10/26/17 19:51 Patient is a 42-year-old female with history of 5, cholecystectomy, complaining of generalized abdominal pain, and generalized back pain 2 days states her pain is 10/10, constant, pressure, congestion, stabbing, which is unrelieved with Tylenol. States today she's had nausea and vomiting for which she has taken Zofran at unrelieved because she vomits the meds. Symptoms are associated with diarrhea, dizziness-lightheaded, fatigue, hot and cold chills, subjective fever. She has not had a normal BM and is minimally passing gas. PMD: Dr. Almaguer in [place] PMHX: as above PSocHx: neg etoh, neg, cig, neg drug ALL: PCN - hives GENERAL/CONSTITUTIONAL: [No fever or chills. No weakness. No weight change.] HEAD, EYES, EARS, NOSE AND THROAT: [No change in vision. No ear pain or discharge. No sore throat.] CARDIOVASCULAR: [No chest pain or shortness of breath.] RESPIRATORY: [No cough, wheezing, or hemoptysis.] GASTROINTESTINAL: (+) nausea, vomiting, diarrhea or constipation. No rectal bleeding.] GENITOURINARY: [No dysuria, frequency, or change in urination.] MUSCULOSKELETAL: [No joint or muscle swelling or pain. No neck or back pain.] SKIN AND BREASTS: [No rash or easy bruising.] NEUROLOGIC: [No headache, vertigo, loss of consciousness, or loss of sensation.] PSYCHIATRIC: [No depression or anxiety.] ENDOCRINE: [No increased thirst. No abnormal weight change.] HEMATOLOGIC/LYMPHATIC: [No anemia, easy bleeding, or history of blood clots.] ALLERGIC/IMMUNOLOGIC: [No hives or skin allergy. No latex allergy.] GENERAL: [The patient is awake, alert, and fully oriented, in moderate painful distress.] HEAD: [Normal with no signs of trauma.] EYES: [Pupils equal, round and reactive to light, extraocular movements intact, sclera anicteric, conjunctiva clear.] ENT: [Ears normal, nares patent, oropharynx clear without exudates. Moist mucous membranes.] NECK: [Normal range of motion, supple without lymphadenopathy, JVD, or masses.] LUNGS: [Breath sounds equal, clear to auscultation bilaterally. No wheezes, and no crackles.] HEART: [Regular rate and rhythm, normal S1 and S2 without murmur, rub.] ABDOMEN: [Soft, (+) tenderness generalized, bowel sounds. (+) guarding , (+) rebound. No masses.] EXTREMITIES: [Normal range of motion, no edema. No clubbing or cyanosis. No cords, erythema, or tenderness.] NEUROLOGICAL: [Cranial nerves II through XII grossly intact. Normal speech, normal gait.] PSYCH: [Normal mood, normal affect.] SKIN: [Warm, Dry, normal turgor, no rashes or lesions noted.] Past History - Past Medical History Allergies/Adverse Reactions: Allergies Allergy/AdvReac Type Severity Reaction Status Date / Time Penicillins Allergy Verified 10/26/17 19:21 Home Medications: Ambulatory Orders Ferrous Sulfate 325 mg PO ASDIR 10/26/17 Ketorolac Tromethamine [Toradol] 10 mg PO Q6H #28 tablet 10/26/17 Levofloxacin [Levaquin] 500 mg PO DAILY #7 tablet 10/26/17 [place] Carbonate [Eskalith -] 600 mg PO BID 10/26/17 Phenazopyridine HCl [Pyridium] 100 mg PO TID #2 tablet 10/26/17 Anemia: Yes Asthma: Yes COPD: No Kidney Stones: Yes Psychiatric Problems: Yes - Surgical History Cholecystectomy: Yes - Immunization History Immunization Up to Date: No - Suicide/Smoking/Psychosocial Hx Smoking History: Former smoker Have you smoked in the past 12 months: Yes Number of Cigarettes Smoked Daily: 4 Information on smoking cessation initiated: No 'Breaking Loose' booklet given: 03/27/16 Hx Alcohol Use: No Drug/Substance Use Hx: No Substance Use Type: None Hx Substance Use Treatment: No *Physical Exam - Vital Signs Last Vital Signs Temp Pulse Resp BP Pulse Ox 98.9 F 59 L 18 117/81 100 10/26/17 19:18 10/26/17 19:18 10/26/17 19:18 10/26/17 19:18 10/26/17 19:18 ED Treatment Course - LABORATORY CBC & Chemistry Diagram: 10/26/17 20:00 10/26/17 20:00 Medical Decision Making - Medical Decision Making 10/26/17 20:18 Patient is a 42-year-old female with history of 5, cholecystectomy, complaining of generalized abdominal pain, and generalized back pain 2 days assoc with n/v/d, hot and cold chills. DDx: collitis, sob pain med, IVF, labs CTAP re-assess 10/26/17 23:24 Patient states no relief from toradol 30mg IV will given Morphine 4mg IV 2320 CTAP reviewed noted to have b/l nonobstructing nephrolithiasis Mild bladder wall thickening may be due to infectious cystitis. Small hiatal hernia with gastroesophageal reflux Constiption mild diverticulosis without diverticulitis Nonspecific asymmetric masslike enlargement fo the fundal uterine myometrium extends into the fundal endometrium and is most likely due to fibroids other uterine masses cannot be excluded. If clinically indicated outpatient evaluation and workup may be needed. Joshua Sultana MD Imaging Public Health Engineer Will give Levaquin 500mg po od x 7 days for possible early pyelonephritis. I discussed the physical exam findings, ancillary test results and final diagnoses with the patient. I answered all of the patient's questions. The patient was satisfied with the care received and felt comfortable with the discharge plan and treatment plan. The Patient agrees to follow up with the primary care physician within 24-72 hours. *DC/Admit/Observation/Transfer Diagnosis at time of Disposition: Cystitis - Discharge Dispostion Disposition: HOME Condition at time of disposition: Stable - Prescriptions Prescriptions: Ketorolac Tromethamine [Toradol] 10 mg PO Q6H #28 tablet Levofloxacin [Levaquin] 500 mg PO DAILY #7 tablet Phenazopyridine HCl [Pyridium] 100 mg PO TID #2 tablet - Referrals Referrals: STAFF,NOT ON [Primary Care Provider] - Kei De Jesus MD [Staff Physician] - - Patient Instructions Printed Discharge Instructions: DI for Kidney Infection, DI for Acute Cystitis Additional Instructions: Your Discharge Instructions: You must call primary care physician within 24 hours to arrange follow-up. Return to the Emergency Department with any new, persistent or worsening symptoms, for fever, chills, SOB, dizziness or any other concerning changes that may occur. You're being treated today for possible early pyelonephritis. Take the antibiotics as prescribed - Post Discharge Activity Forms/Work/School Notes: Back to Work
[2017-10-26 20:31] LABS: ANISOCYTOSIS 2+; HYPOCHROMIA 1+; MICROCYTOSIS 1+
[2017-10-26 20:39] VITALS: TEMP 98.7
[2017-10-26 20:43] LABS: ALBUMIN 3.4 g/dl (3.4-5.0); ANION GAP 5 (8-16); CALCIUM 8.3 mg/dL (8.5-10.1); CO2 25 mmol/L (21-32); CREATININE 0.9 mg/dL (0.55-1.02); GLUCOSE,RANDOM 96 mg/dL (74-106); SGOT/AST 8 U/L (15-37); SGPT/ALT 19 U/L (12-78)
[2017-10-26] MEDS ORDERED: morphine SULFATE 4 MG/ML VIAL ONE (20:43)
[2017-10-26 20:44] LABS: ALK PHOS 64 U/L (45-117); BILIRUBIN,TOTAL 0.2 mg/dL (0.2-1.0); TOT PROT 6.9 g/dl (6.4-8.2)
[2017-10-26] MEDS ORDERED: morphine CARPU-JECT 4 MG/1 ML DISP.SYRIN IVPUSH ONE (20:48)
[2017-10-26] MEDS ORDERED: LEVOFLOXACIN 500 MG IVPB 500 MG/100 ML BAG IVPB ONE ×2 (21:02→21:07)
[2017-10-26 22:35] LABS: URINE LEUK ESTERASE 3+ (NEGATIVE)
[2017-10-26] MEDS ORDERED: diphenhydrAMINE HCL 25 MG CAPSULE (FP) PO ONE ×2 (23:23→23:31)
[2017-10-27] MEDS ORDERED: ONDANSETRON 4 MG TABLET PO ONE (00:29)
[2017-10-27] MEDS ORDERED: NAPROXEN 500 MG TABLET (FP) PO ONE (00:29)
[2017-10-27] MEDS ORDERED: ONDANSETRON *ODT* 4 MG TABLET ONE (00:31)
[2017-10-27] MEDS ORDERED: NAPROXEN 500 MG TABLET (FP) ONE (00:31)
== END 2017-10-27 00:21 | disposition home or self-care (01) ==
LOC: JER 19:17
PROC: 3E0333Z Introduction of Anti-inflammatory into Peripheral Vein, Percutaneous Approach (ICD-10-PCS; principal; 2017-10-26)
PROC: 3E03329 Introduction of Other Anti-infective into Peripheral Vein, Percutaneous Approach (ICD-10-PCS; 2017-10-26)
PROC: 3E033NZ Introduction of Analgesics, Hypnotics, Sedatives into Peripheral Vein, Percutaneous Approach (ICD-10-PCS; 2017-10-26)
PROC: 3E033GC Introduction of Other Therapeutic Substance into Peripheral Vein, Percutaneous Approach (ICD-10-PCS; 2017-10-26)
PROC: 3E0337Z Introduction of Electrolytic and Water Balance Substance into Peripheral Vein, Percutaneous Approach (ICD-10-PCS; 2017-10-26)
DX: N30.90 Cystitis, unspecified without hematuria (principal)
CPT/HCPCS: 36415; 74176-TC; 80053; 81003; 81015; 83690; 84703; 85025; 87086; 96361; 96365; 96375; 99283-25

== ENCOUNTER 2017-12-08 15:05 | Emergency (ER) | payer OTHER ==
[2017-12-08 15:21] VITALS: TEMP 98.4; BMI 27.6
--- NOTE | 2017-12-08 16:11 | PDOC ---
History of Present Illness - General Chief Complaint: Vaginal Bleeding Stated Complaint: VAGINAL PAIN/BLEEDING Time Seen by Provider: 12/08/17 15:32 - History of Present Illness Initial Comments: 12/08/17 16:00 Pt is a 42 y/o F A1 with CSx5 s/p tubal ligation with PMH uterine fibroids, kidney stones, and adnexal hemorrhagic cyst who presents with lower abdominal pain and vaginal bleeding. Pt states she is planning to reverse her tubal ligation. Her MARKET RESEARCHER gave her a script for intravaginal misoprostol to be taken Wed which was the day before the procedure was scheduled. After using the medication, the pt began experiencing severe sharp and cramping, nonradiating, intermittent lower abdominal pain. Pt also describes vaginal bleeding, which is intermittent, occasionally associated with urination; pt has used 1 pad yesterday. Pt also admits to having a single episode of watery nonbloody diarrhea on Fri and again on Sat. No BM today. Pt also notes that she was started on [place] about 1 yr ago, she has unintentionally gained roughly 20lbs in the last 1-2 months, and she has questionable heat intolerance for the last month. Pt denies nausea, vomiting, urinary urgency/frequency/pain, pain during sex. Other PMH Asthma, Anxiety, mood disorder. Past History - Past Medical History Allergies/Adverse Reactions: Allergies Allergy/AdvReac Type Severity Reaction Status Date / Time Penicillins Allergy Verified 12/08/17 15:21 Home Medications: Ambulatory Orders Ferrous Sulfate 325 mg PO ASDIR 10/26/17 [place] Carbonate [Eskalith -] 600 mg PO BID 10/26/17 Anemia: Yes Asthma: Yes COPD: No Kidney Stones: Yes Psychiatric Problems: Yes (ANXIETY, DEPRESSION, PANIC ATTACKS.) - Surgical History Cholecystectomy: Yes - Immunization History Immunization Up to Date: No - Suicide/Smoking/Psychosocial Hx Smoking History: Never smoked Have you smoked in the past 12 months: Yes Number of Cigarettes Smoked Daily: 4 'Breaking Loose' booklet given: 03/27/16 Hx Alcohol Use: Yes Drug/Substance Use Hx: No Substance Use Type: None Hx Substance Use Treatment: No Review of Systems - Review of Systems Able to Perform ROS?: Yes Is the patient limited Thai proficient: No Constitutional: Yes: Symptoms Reported, Other (weight gain). No: Chills, Fever , Weakness, Weight Stable HEENTM: Yes: Symptoms Reported. No: Blurred Vision, Nose Congestion, Throat Pain Respiratory: Yes: Symptoms reported. No: Cough, Shortness of Breath, Wheezing Cardiac (ROS): Yes: Symptoms Reported. No: Chest Pain, Edema, Irregular Heart Rate ABD/GI: Yes: Symptoms Reported, Diarrhea, Abdominal cramping. No: Abdominal Distended, Abd. Pain w/ defecation, Blood Streaked Bowels, Constipated, Nausea, Poor Appetite, Poor Fluid Intake, Rectal Bleeding, Vomiting, Indigestion : Yes: Symptoms Reported, Hematuria. No: Dysuria, Discharge, Flank Pain, Incontinence, Pain Musculoskeletal: Yes: Symptoms Reported. No: Joint Pain Integumentary: Yes: Symptoms Reported. No: Rash Endocrine: Yes: Symptoms Reported, Intolerance to Heat, Unexplained Weight Gain *Physical Exam - Vital Signs Last Vital Signs Temp Pulse Resp BP Pulse Ox 98.4 F 87 20 131/73 99 12/08/17 15:15 12/08/17 15:15 12/08/17 15:15 12/08/17 15:15 12/08/17 15:15 - Physical Exam General Appearance: Yes: Appropriately Dressed. No: Apparent Distress HEENT: positive: EOMI, ELMA, Normal ENT Inspection, Normal Voice Neck: positive: Normal Thyroid, Supple. negative: Tender Respiratory/Chest: positive: Normal Breath Sounds. negative: Chest Tender, Respiratory Distress Cardiovascular: positive: Regular Rhythm, Regular Rate, S1, S2 Vascular Pulses: Dorsalis-Pedis (R): 2+, Doralis-Pedis (L): 2+ Gastrointestinal/Abdominal: positive: Normal Bowel Sounds, Flat, Soft. negative : Tender, Organomegaly, Guarding, Rebound Musculoskeletal: positive: Normal Inspection Neurologic: positive: Fully Oriented, Alert, Normal Mood/Affect ED Treatment Course - LABORATORY CBC & Chemistry Diagram: 12/08/17 17:55 Medical Decision Making - Medical Decision Making 12/08/17 16:19 Pt is a 42 y/o F A1 C/Sx5 with PMH uterine fibroids, adnexal hemorrhagic cyst, kidney stones, anxiety, mood disorder, asthma, small hiatal hernia who presents to ED with lower abdominal pain and vaginal bleeding. Misoprostol is the likely culprit as symptoms began after pt placed vaginal suppository. Multiple potential confounding factors. Plan -will attempt to contact CHART CLERK -UA -CBC -CMP 12/08/17 18:12 CBC remarkable for eosinophilia (likely related to asthma). No transfusion required. UA shows 3+ blood 12/08/17 18:53 test negative. Labs unremarkable. Pt stable, afebrile, in NAD. Pt stable for discharge. *DC/Admit/Observation/Transfer Diagnosis at time of Disposition: Abdominal pain Qualifiers: Abdominal location: lower abdomen, unspecified Qualified Code(s): R10.30 - Lower abdominal pain, unspecified - Discharge Dispostion Disposition: HOME Condition at time of disposition: Stable Admit: No - Referrals Referrals: STAFF,NOT ON [Primary Care Provider] - - Patient Instructions Printed Discharge Instructions: DI for Vaginal Bleeding Additional Instructions: Please make sure you take all your prescription medications as directed. Please make sure you follow up with your CHART CLERK within 2 days. If you develop new symptoms or if your symptoms get worse, please return to the emergency department. If your bleeding gets worse or if you are unable to reach your CHART CLERK, please return to the emergency department. - Post Discharge Activity
--- NOTE | 2017-12-08 17:26 | PDOC ---
Attending Attestation - Resident Resident Name: IsabelChristiano - ED Attending Attestation I have performed the following: I have examined & evaluated the patient, The case was reviewed & discussed with the resident, I agree w/resident's findings & plan, Exceptions are as noted - HPI HPI: 12/08/17 17:25 42 yo female took progesterone given to her by her ob gyn physician assistant prior to a reversal of her tubal ligation procedure last Wed and then dev pelvic cramping and bleeding She canceled her procedure .she has a history of anemia in the past 12/08/17 17:34 - Physicial Exam PE: 12/08/17 17:40 WNWD 42 yo female p/w vaginal bleeding and cramping head ncat eyesperal eomi neck supple abd soft, +suprapubic pain, no rebound,no guarding PELVIC os closed,moderate vaginal bleeding extremities no hives,no rashes, multiple old linear superficial lacerations well healed on left forearm neuro axox3,ambulatory skin warm,dry 12/08/17 17:44 12/08/17 17:48 - Medical Decision Making 12/08/17 17:49 plan cbc,T and S 12/08/17 18:59 pt does not need a blood transfusion and was told to please follow up with her surgical services asst
[2017-12-08] MEDS ORDERED: KETOROLAC TROMETHAMINE 60 MG/2 ML VIAL IM ONE (17:51)
[2017-12-08 17:52] LABS: URINE APPEARANCE CLEAR; URINE BILIRUBIN NEGATIVE (NEGATIVE); URINE BLOOD 3+ (NEGATIVE); URINE COLOR LTYELLOW; URINE GLUCOSE (UA) NEGATIVE (NEGATIVE); URINE KETONE NEGATIVE (NEGATIVE); URINE LEUK ESTERASE NEGATIVE (NEGATIVE); URINE NITRITE NEGATIVE (NEGATIVE); URINE PROTEIN NEGATIVE (NEGATIVE); URINE UROBILINOGEN NEGATIVE mg/dL (0.2-1.0)
[2017-12-08] MEDS ORDERED: KETOROLAC TROMETHAMINE 60 MG/2 ML VIAL ONE (17:52)
[2017-12-08 17:58] LABS: EPI CELLS RARE /HPF (FEW); URINE MUCUS RARE
[2017-12-08 18:05] LABS: EOS % 5.5 % (0-4.5); HEMATOCRIT 34.5 % (32.4-45.2); MCH 25.6 pg (25.7-33.7); MCHC 31.9 g/dl (32.0-36.0); MEAN CELL VOLUME 80.1 fl (80-96); MEAN PLT VOLUME 7.4 fl (7.5-11.1); MONO % 7.5 % (3.8-10.2); PLATELET COUNT 239 K/MM3 (134-434); RBC 4.31 M/mm3 (3.60-5.2); RDW 21.1 % (11.6-15.6); WHITE BLOOD COUNT 5.1 K/mm3 (4.0-10.0)
[2017-12-08 19:20] VITALS: BP 110/67; PULSE 57
== END 2017-12-08 19:21 | disposition home or self-care (01) ==
LOC: JER 15:05
PROC: 3E0233Z Introduction of Anti-inflammatory into Muscle, Percutaneous Approach (ICD-10-PCS; principal; 2017-12-08)
DX: R10.30 Lower abdominal pain, unspecified (principal); N93.8 Other specified abnormal uterine and vaginal bleeding; F41.0 Panic disorder [episodic paroxysmal anxiety]; F41.8 Other specified anxiety disorders; D64.9 Anemia, unspecified; J45.990 Exercise induced bronchospasm
CPT/HCPCS: 36415; 81003; 81015; 84703; 85025; 96372; 99282-25

== ENCOUNTER 2020-07-21 17:20 | Inpatient (IN) | payer BC, OTHER ==
[2020-07-21] MEDS ORDERED: KETOROLAC TROMETHAMINE 30 MG/1 ML VIAL IM ONE (17:50)
[2020-07-21] MEDS ORDERED: KETOROLAC TROMETHAMINE 30 MG/1 ML VIAL ONE (17:54)
[2020-07-21] MEDS ORDERED: morphine SULFATE 4 MG/ML VIAL IM ONE (18:03)
[2020-07-21] MEDS ORDERED: MORPHINE SULFATE 2 MG/ML VIAL ONE (18:10)
[2020-07-21] MEDS ORDERED: SODIUM CHLORIDE 0.9% 1000 ML INFUS.BAG IV ONE (18:21)
[2020-07-21] MEDS ORDERED: HYDROmorphone HCl 2 MG/ML VIAL ONE (18:46)
[2020-07-21] MEDS ORDERED: HYDROmorphone HCL CARPU-JECT 2 MG/1 ML DISP.SYRIN IVPUSH ONE (18:47)
[2020-07-21] MEDS ORDERED: ONDANSETRON 4 MG/2 ML VIAL IVPUSH ONE (18:48)
--- NOTE | 2020-07-21 18:56 | PDOC ---
History of Present Illness - General Chief Complaint: Pain Stated Complaint: VAGINAL PAIN Time Seen by Provider: 07/21/20 17:49 - History of Present Illness Initial Comments: HPI Pt is a 44yo with PMH significant for multiple nephrolithiasis, pyelonephritis, s/p tubal ligation, who presents with back/flank pain and RLQ abdominal pain. States that she had stent placed in her left ureter at [facility], does not remember name of urologist. Reports 1 month hx of RLQ pain. Reports 2 week history of bleeding, unclear if from her vagina or in urine. States that she is passing large clots, soaking 2 pads/hour. States that she came in today for worsening back pain. Interview was difficult to complete as patient was in significant amount of pain. Reports occasional mild chest pain and SOB. PMH: see chart PSH: C section Meds: denies Allergies: Penicillin Social: reports tobacco, etoh use. Denies recreational drug use Review of Systems CONSTITUTIONAL:denies fever, chills HEENT:denies rhinorrhea, nasal congestion, sore throat CARDIOVASCULAR:reports chest pain, denies syncope RESPIRATORY:reports SOB, denies cough GASTROINTESTINAL: reports abdominal pain, denies nausea, vomiting, diarrhea, constipation GENITOURINARY:reports hematuria, denies dysuria, frequency MUSCULOSKELETAL:report back/flank pain HEMATOLOGIC/IMMUNOLOGIC:denies easy bleeding, easy bruising ENDOCRINE: denies unexplained weight gain, unexplained weight loss NEUROLOGIC:denies headache, loss of consciousness, SKIN:denies rash, itching, pallor Physical Exam General: awake, alert, in significant distress, well developed, well nourished Head: normocephalic, atraumatic ENT: Auricles normal inspection, hearing grossly normal, moist mucous membranes Lung: equal breath sounds b/l, CTA b/l, no crackles, wheezes; no distress, speaks full sentences Heart: RRR, normal S1, S2, no murmurs appreciated Abdomen: soft, TTP in RLQ and suprapubic region, normoactive bowel sounds, no guarding, rebound, masses Extremities: normal ROM, no edema, no erythema or tenderness, DP/PT pulses 2+ and symmetric Neuro: CN2-12 grossly intact, moves all extremities, normal speech, sensation intact Skin: warm, dry, no rashes or lesions noted MDM Pt is a 44yo with PMH significant for multiple nephrolithiasis, pyelonephritis, s/p tubal ligation, who presents with back/flank pain and RLQ abdominal pain. DDx including but not limited to: pyelonephritis, nephrolithiasis, ectopic Workup: labs, CT a/p TX: pain control Given 30mg Toradol, 4mg morphine, 2 Dilaudid, 4mg Zofran Patient itchiness Will give Benadryl 25mg Bedside ultrasound with bilateral hydronephrosis R>L, blood in bladder Pt signed out to night team pending CT a/p likely admission Past History - Medical History Allergies/Adverse Reactions: Allergies Allergy/AdvReac Type Severity Reaction Status Date / Time Penicillins Allergy Verified 07/21/20 19:25 morphine AdvReac Intermediate Itching Verified 07/22/20 12:45 Home Medications: Ambulatory Orders Ferrous Sulfate 325 mg PO ASDIR 10/26/17 [place] Carbonate [Eskalith -] 600 mg PO BID 10/26/17 Acetaminophen [Tylenol .Extra-Strength -] 1,000 mg PO Q6H PRN #240 tablet 07/25/20 Cyanocobalamin (Vitamin B-12) [B-12] 2,500 mcg SL DAILY 90 Days #90 tab 07/25/20 Docusate Sodium [Colace -] 100 mg PO BID #60 capsule 07/25/20 Ferrous Sulfate [Feosol] 325 mg PO DAILY #30 tab 07/25/20 Tamsulosin HCl [Flomax -] 0.8 mg PO DAILY@0830 #30 cap 07/25/20 levoFLOXacin [Levaquin -] 500 mg PO DAILY@0600 #7 tablet 07/25/20 oxyCODONE HCL [Roxicodone -] 5 mg PO Q4H PRN 5 Days #30 tablet MDD 6 07/25/20 Anemia: Yes Asthma: Yes COPD: No Kidney Stones: Yes Psychiatric Problems: Yes (ANXIETY, DEPRESSION, PANIC ATTACKS.) - Surgical History Cholecystectomy: Yes - Reproductive History Is Patient Now?: No (#): 10 Para: 9 Therapeutic (s) & number: Yes Tubal Ligation: Yes - Immunization History Immunization Up to Date: No - Psycho-Social/Smoking History Smoking History: Current some day smoker Have you smoked in the past 12 months: Yes Number of Cigarettes Smoked Daily: 15 Information on smoking cessation initiated: No 'Breaking Loose' booklet given: 03/27/16 - Substance Abuse Hx (Audit-C & DAST Scrn) How often the patient has a drink containing alcohol: Monthly or less Number of drinks the patient has on a typical day: 1 or 2 How often the patient has six or more drinks on one occasion: Never Score: In Men: 4 or > Positive; In Women: 3 or > Positive: 1 Screen Result (Pos requires Nsg. Audit-10AR): Negative In the last yr the pt used illegal drug/Rx for NonMed reason: No Score: Yes response is considered Positive: 0 Screen Result (Positive result requires Nsg. DAST-10): Negative *Physical Exam - Vital Signs Last Vital Signs Temp Pulse Resp BP Pulse Ox 98.9 F 84 24 H 86/60 L 100 07/21/20 17:20 07/21/20 17:20 07/21/20 17:20 07/21/20 17:20 07/21/20 17:20 ED Treatment Course - LABORATORY CBC & Chemistry Diagram: 07/25/20 07:38 07/25/20 07:38 - RADIOLOGY Radiology Studies Ordered: Category Date Time Status ABDOMEN & PELVIS CT W/O CONTR [CT] Stat CT Scan 07/21/20 18:47 Ordered - Medications Given in the ED: ED Medications Discontinued Medications Generic Name Dose Route Start Last Admin Trade Name John PRN Reason Stop Dose Admin Ketorolac Tromethamine 30 mg 07/21/20 17:50 07/21/20 17:55 Toradol Injection - IM 07/21/20 17:51 30 mg ONCE ONE Administration Morphine Sulfate 4 mg 07/21/20 18:03 07/21/20 18:12 Morphine Sulfate IM 07/21/20 18:04 4 mg ONCE ONE Administration Discharge - Discharge Information Problems reviewed: Yes Clinical Impression/Diagnosis: Rt flank pain, Hydronephrosis of right kidney Hydronephrosis Qualifiers: Hydronephrosis type: unspecified Qualified Code(s): N13.30 - Unspecified hydronephrosis Condition: Stable Disposition: HOME - Admission Yes - Follow up/Referral - Patient Discharge Instructions - Post Discharge Activity
[2020-07-21 19:23] LABS: BASO % 0.4 % (0-2.0); EOS % 3.3 % (0-4.5); HEMATOCRIT 28.2 % (32.4-45.2); HEMOGLOBIN 9.2 GM/dL (10.7-15.3); LYMPH % 9.6 % (8-40); MCH 25.1 pg (25.7-33.7); MCHC 32.5 g/dl (32.0-36.0); MEAN CELL VOLUME 77.1 fl (80-96); MEAN PLT VOLUME 7.5 fl (7.5-11.1); MONO % 5.5 % (3.8-10.2); NEUT % 81.2 % (42.8-82.8); PLATELET COUNT 217 K/MM3 (134-434); RBC 3.65 M/mm3 (3.60-5.2); RDW 16.4 % (11.6-15.6); WHITE BLOOD COUNT 7.1 K/mm3 (4.0-10.0)
--- NOTE | 2020-07-21 19:26 | PDOC ---
Documentation entered by Paris Soliz SCRIBE, acting as scribe for Chana Perez DO. Chana Perez DO: This documentation has been prepared by the tabithaibe, Paris Soliz SCRIBE, under my direction and personally reviewed by me in its entirety. I confirm that the documentation accurately reflects all work, treatment, procedures, and medical decision making performed by me. Attending Attestation - Resident Resident Name: Deepa Meng - ED Attending Attestation I have performed the following: I have examined & evaluated the patient, The case was reviewed & discussed with the resident, I agree w/resident's findings & plan, Exceptions are as noted - HPI HPI: 07/21/20 17:57 Patient is a 44 year old female with a significant past medical history of smoking, multiple nephrolithiasis, and pyelonephritis, s/p tubal ligation, who presents to the ED with worsening back pain and abdominal pain x1 month. Patient also reports bleeding in her vaginal area and said that she has been passing "large" clots - "soaking pads". Patient endorses: SOB and mild chest pain. Patient denies: any related symptoms. Allergies: Penicillins HPI is limited to the patient not being able to talk properly due to her pain. - Physicial Exam PE: 07/21/20 19:23 Gen: aaox3, uncomfortable, writhing in pain heart: +s1s2 reg lungs: cta b/l abd: soft, diffusely ttp, R cva ttp, R flank ttp, RLQ ttp, suprapubic ttp ext: no c/c/e - Medical Decision Making 07/21/20 19:24 a/p: 44yo female with hx of renal colic with acute onset of worsening flank pain -R flank pain -states a stent was placed at [facility] a month ago and they did lithotrypsy -pt states acute onset of R flank pain x 2-3 days -n/v -pt in acute pain upon arrival -also states vaginal bleeding x 2 weeks -call placed to [facility]- who states b/l ureteral stents placed and lithotrypsy by Dr. Maciel -will send labs, ua, ucx, ct abd/pelvis -pt on renal bedside ultrasound shows severe hydro R kidney and moderate hydro L kidney and blood in the bladder -concern for severe obstruction -will start ivf hydration, nausea control, pain control -will most likely need admission 07/21/20 19:33 per [facility] - Cr was 1 yesterday and hgb 10 07/21/20 21:28 pt with severe hydro elevated cr hgb 9 resident discussed the case with Dr. Maciel who recommends abx, flomax, npo -pt just gave a urine sample and it was sent pt will be admitted pt follows at [facility] microblog sent to [facility] for admissions 07/21/20 21:33 pt updated and currently pain is controlled 07/21/20 22:02 resident discussed the case with [facility] who accepts pt to service Heart Score/ECG Review - ECG Intrepretation Comment:: 07/21/20 19:32 sinus at 93, nl axis, nl interval, t wave inversions v1-2, incomplete RBBB, abnl ekg Discharge - Discharge Information Problems reviewed: Yes Clinical Impression/Diagnosis: Rt flank pain, Hydronephrosis of right kidney, Hydronephrosis Condition: Guarded - Admission Yes - Follow up/Referral - Patient Discharge Instructions - Post Discharge Activity
--- NOTE | 2020-07-21 19:27 | PDOC ---
*Physical Exam - Vital Signs Last Vital Signs Temp Pulse Resp BP Pulse Ox 98.9 F 79 24 H 128/70 100 07/21/20 17:20 07/21/20 19:09 07/21/20 17:20 07/21/20 19:09 07/21/20 17:20 - Physical Exam 07/21/20 19:26 Received patient at sign out. Pending labs and CT A/P. Anticipate admission. 07/21/20 21:30 CT A/P: 1. S/P bilateral ureteral stent placement. 2. Moderately severe bilateral hydronephrosis and hydroureter, right greater than left. 3. 2.4 cm left lower pole renal stone with additional smaller nonobstructing calculi within the left kidney. 4. Hepatosplenomegaly. 5. No additional evidence of acute pathology within the abdomen or pelvis. Please see above discussion. Aircraft As[employer]er Dr. Thuan Maciel consulted. Recommended Rocephin (ordered instead for levofloxacin given penicillin allergy), fluids at 150cc/hr, strain the urine, NPO, and will see her in the morning 07/21/20 21:41 ED Treatment Course - LABORATORY CBC & Chemistry Diagram: 07/21/20 19:00 07/21/20 19:00 - Medications Given in the ED: ED Medications Discontinued Medications Generic Name Dose Route Start Last Admin Trade Name Constantinq PRN Reason Stop Dose Admin Hydromorphone HCl 2 mg 07/21/20 18:47 07/21/20 18:54 Dilaudid Injection - IVPUSH 07/21/20 18:48 2 mg ONCE ONE Administration Ketorolac Tromethamine 30 mg 07/21/20 17:50 07/21/20 17:55 Toradol Injection - IM 07/21/20 17:51 30 mg ONCE ONE Administration Morphine Sulfate 4 mg 07/21/20 18:03 07/21/20 18:12 Morphine Sulfate IM 07/21/20 18:04 4 mg ONCE ONE Administration Ondansetron HCl 4 mg 07/21/20 18:48 07/21/20 18:55 Zofran Injection IVPUSH 07/21/20 18:49 4 mg ONCE ONE Administration Sodium Chloride 1,000 ml 07/21/20 18:21 07/21/20 19:06 Normal Saline - IV 07/21/20 18:22 1,000 ml ONCE ONE Administration Discharge - Discharge Information Problems reviewed: Yes Clinical Impression/Diagnosis: Rt flank pain, Hydronephrosis of right kidney, Hydronephrosis Condition: Guarded - Follow up/Referral - Patient Discharge Instructions - Post Discharge Activity
[2020-07-21 19:33] LABS: INR 1.07 (0.83-1.09); PROTHROMBIN TIME (PATIENT) 12.6 SEC (9.7-13.0)
[2020-07-21 19:48] LABS: ALBUMIN 3.3 g/dl (3.4-5.0); ALK PHOS 88 U/L (45-117); ANION GAP 11 MMOL/L (8-16); BILIRUBIN,TOTAL 0.2 mg/dL (0.2-1); BLOOD UREA NITROGEN 29.6 mg/dL (7-18); CALCIUM 8.7 mg/dL (8.5-10.1); CHLORIDE 109 mmol/L (98-107); CO2 22 mmol/L (21-32); CREATININE 1.4 mg/dL (0.55-1.3); GLUCOSE,RANDOM 90 mg/dL (74-106); POTASSIUM 3.9 mmol/L (3.5-5.1); SGOT/AST 16 U/L (15-37); SGPT/ALT 19 U/L (13-61); SODIUM 142 mmol/L (136-145); TOT PROT 7.1 g/dl (6.4-8.2)
--- NOTE | 2020-07-21 21:50 | PN ---
Teaching Attending Note Name of Resident: Genesis Nolen ATTENDING PHYSICIAN STATEMENT I saw and evaluated the patient. I reviewed the resident's note and discussed the case with the resident. I agree with the resident's findings and plan as documented. SUBJECTIVE: Patient is a 44 year old woman with a PMH of Tobacco use, Asthma, Microcytic anemia, Uterine fibroids, Ovarian cyst, Vaginal bleeding, Penicillin allergy, Anxiety, Depression, Panic attacks, Multiple kidney stones (s/p Lithotripsy and Bilateral ureteral stents), Pyelonephritis and Tubal ligation who presents with back/flank pain and RLQ abdominal pain. States that she had stent placed in her left ureter at [facility] one agnes ago - does not remember name of Urologist. Reports 1 month history of RLQ pain. Reports 2 week history of bleeding, unclear if from her vagina or in urine. States that she is passing large clots, soaking 2 pads/hour. States that she came in today for worsening back pain. Has been ingesting Aleve, Motrin and Percocet for pain. Interview limited by patient's severe pain. Reports occasional mild chest pain and SOB. Patient denies headache, palpitations, dizziness, fever, chills, nausea, vomiting, diarrhea, constipation, dysuria, frequency, urgency or melena. Denies alcohol or illicit drug use. No sick contacts or recent travels. Her periods are irregular and she does not remember her LMP. She lives alone, works in a Security office, has had 5 C-sections and has 9 children. Family history - thyroid issue and migraines in mother; father in his 30s, HIV/AIDS related; one sisters has migraines and another has ovary problems. OBJECTIVE: Alert and in pain Vital Signs Period Temp Pulse Resp BP Sys/Go Pulse Ox Last 24 Hr 98.9 F 79-84 24 86-128/60-70 100 HEENT: No Jaundice, eye redness or discharge, PERRLA, EOMI. Normocephalic, atraumatic. External ears are normal and hearing is grossly intact. No nasal discharge. Neck: Supple, nontender. No palpable adenopathy or thyromegaly. No JVD Chest: Good effort. Clear to auscultation and percussion. Heart: Regular. No S3, rub or murmur Abdomen: Not distended, soft, right flank tenderness and right side abdominal tenderness; no HSM. No rebound or guarding. Normal bowel sounds. Ext: Peripheral pulses intact. No leg edema. Skin: Warm and dry. No petechiae, rash or ecchymosis. Neuro: Alert. Restless from pain; Oriented x3. CN 2-12 grossly intact. Sensation grossly intact in all four extremities and DTR are symmetric. Psych: Appropriate mood and affect. Good insight. Home Medications Medication Instructions Recorded Ferrous Sulfate 325 mg PO ASDIR 10/26/17 [place] Carbonate [Eskalith -] 600 mg PO BID 10/26/17 Abnormal Lab Results 07/21/20 07/21/20 19:00 19:00 Hgb 9.2 L Hct 28.2 L D MCV 77.1 L MCH 25.1 L RDW 16.4 H Chloride 109 H BUN 29.6 H Creatinine 1.4 H Albumin 3.3 L Current Medications Generic Name Dose Route Start Last Admin Trade Name Freq PRN Reason Stop Dose Admin Docusate Sodium 100 mg 07/22/20 01:15 07/22/20 01:22 Colace - PO 100 mg BID DHARMESH Administration Sodium Chloride 1,000 mls @ 150 mls/hr 07/21/20 21:45 07/21/20 22:35 Normal Saline - IV 150 mls/hr ASDIR DHARMESH Administration Morphine Sulfate 2 mg 07/22/20 00:30 07/22/20 00:52 Morphine Sulfate IVPUSH 2 mg Q3H PRN Administration PAIN LEVEL 7 - 10 Morphine Sulfate 15 mg 07/22/20 01:15 07/22/20 01:21 Ms Contin - PO 15 mg Q12H DHARMESH Administration Nicotine 7 mg 07/22/20 10:00 Nicoderm Patch - TD DAILY DHARMESH Tamsulosin HCl 0.8 mg 07/22/20 08:30 Flomax - PO DAILY@0830 [facility] ASSESSMENT AND PLAN: 1. Bilateral hydronephrosis/Kidney stones - Report of CT scan of abdomen/pelvis without contrast - "1. S/P bilateral ureteral stent placement. 2. Moderately severe bilateral hydronephrosis and hydroureter, right greater than left. 3. 2.4 cm left lower pole renal stone with additional smaller nonobstructing calculi within the left kidney. 4. Hepatosplenomegaly. 5. No additional evidence of acute pathology within the abdomen or pelvis." ER satff consulted Urology and Dilaudid, Flomax, Benadryl, Zofran, Ketorolac, IV Levofloxacin, IV Morphine and IV NS for the patient. Will keep her NPO, continue IV Levofloxacin, IV NS, Flomax, strain patients urine, use IV Morphine for pain control, consult Urology and refer to Nephrology for stone disease risk factor evaluation. Get ORIENTAL MEDICINE PRACTITIONER consult and transvaginal sonogram to evaluate possible vaginal bleeding. EKG shows NSR at 93/minute and QTc 455, IRBBB, with no ischemic ST-T wave changes. Viral testing for COVID-19 ordered and patient placed on airborne, droplet and contact isolation. Will continue comprehensive care for all of patients comorbid conditions including [place] for psychiatric problems and Albuterol PRN for Asthma. 2. Hypoalbuminemia - Possibly due to combined effects of malnutrition and inflammation associated with comorbid conditions. Will ensure adequate dietary protein intake and also consult radiology resident. Urinalysis pending. 3. Tobacco Use Counseled on risks associated with tobacco use. We will provide patient all the necessary assistance to facilitate smoking cessation and prescribe Nicotine patch. 4. ROSHAN Likely partly due to urinary outlet obstruction. Will get kidney sonogram, hydrate gently, monitor urine output and consult Nephrology. Avoid nephrotoxic agents such as NSAIDS, aminoglycosides, contrast dyes and certain Alternative medicine products. 5. Anemia Likely multifactorial. Will do basic anemia work up including serial stool guaiacs, reticulocyte count and iron studies. Consult ORIENTAL MEDICINE PRACTITIONER and GI. Give IV Venofer 500 mg x 2 doses before discharge. 6. DVT prophylaxis - SCD. 7. Advance directives - Full code
[2020-07-21] MEDS ORDERED: TAMSULOSIN HCL 0.4 MG CAP PO ONE (21:51)
[2020-07-21] MEDS ORDERED: diphenhydrAMINE HCL 25 MG CAPSULE (FP) PO ONE (21:54)
[2020-07-21] MEDS ORDERED: TAMSULOSIN HCL 0.4 MG CAP ONE ×2 (22:00→22:02)
[2020-07-21] MEDS: SODIUM CHLORIDE 1,000 ML IV SCH (22:35)
[2020-07-22] MEDS ORDERED: morphine SO4 SUSTAINED ACTING 100 MG TABLET.SA PO SCH (00:30)
[2020-07-22] MEDS ORDERED: MORPHINE SULFATE 2 MG/ML VIAL ONE ×2 (00:50→09:38)
[2020-07-22] MEDS: MORPHINE SULFATE 2 MG/ML VIAL IVPUSH PRN ×2 (00:52→09:44)
--- NOTE | 2020-07-22 01:04 | HP ---
CHIEF COMPLAINT: bad pain [facility]CP[facility] HISTORY OF PRESENT ILLNESS: 44yo F with PMHx of multiple episodes of nephrolithiasis, pyelonephritis, tubal ligation, asthma, anxiety, tobacco use, anemia (has received transfusions) who presents with one month of worsening back and abdominal pain. About a month ago, the pain started in her back, which prompted her to go to [facility]. There, she was found to have kidney stones so they did lithotripsy and placed bilateral ureteral stents. Despite the interventions, her pain continued to get worse. She tried aleve, ibuprofen, and percocet from a friend that gave her minimal relief. Today the pain became unbearable, which made her come to the ED. Patient also explained that she has been bleeding "from her insides", so much that she would bleed through her pads, underwear, and pants. Therefore she now has to wear diapers. She endorsed occasional dizziness and epigastric pain, and patient has been experiencing generalized pruritis since coming to the hospital which has been causing her significant distress in addition to the pain. Patient denied headaches, NVD, constipation, urinary frequency, and dysuria. Patient said she takes no medications. COVID pending. ER course was notable for: (1) initial BP 86/60 (2) microcytic anemia Hgb 9.2, MCV 77.1 (3) BUN 29.6, Cr 1.4 (4) abdomen/pelvis CT: bilateral ureteral stents, moderately severe bilateral hydronephrosis and hydroureter, 2.4cm left renal stone, hepatosplenomegaly (5) received diphenhydramine 25 x2, hydromorphone 2, ketorolac 30, morphine 4, zofran 4, 1L NS Recent Travel: did not assess PAST MEDICAL HISTORY: as per above PAST SURGICAL HISTORY: x5, cholecystectomy Gynecological History: Has 9 children age range 14-26 s/p tubal ligation hx of fibroids - said she never had a procedure done for them but used to receive depo shots highly irregular menses Family History: noncontributory - denied presence of any chronic disease, DM, HTN, cancers Social History: Smoking: "sometimes" Alcohol: "sometimes" Drugs: denied 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 Home: lives alone Allergies Penicillins Allergy (Verified 07/21/20 19:25) - gets a rash, hives, and pruritis HOME MEDICATIONS: patient said she takes no medications Medication Instructions Recorded Ferrous Sulfate 325 mg PO ASDIR 10/26/17 [place] Carbonate [Eskalith -] 600 mg PO BID 10/26/17 REVIEW OF SYSTEMS as per [facility] PHYSICAL EXAMINATION Vital Signs - 24 hr 07/21/20 07/21/20 07/21/20 17:20 19:09 23:52 Temperature 98.9 F 98.9 F Pulse Rate 84 Pulse Rate [ 79 84 Radial] Respiratory 24 H 18 Rate Blood Pressure 86/60 L Blood Pressure 128/70 107/55 L [Right Arm] O2 Sat by Pulse 100 100 Oximetry (%) GENERAL: Awake, alert, and fully oriented, in no acute distress. HEAD: Normal with no signs of trauma. EYES: Pupils equal, round and reactive to light, extraocular movements intact, sclera anicteric, conjunctiva clear. No lid lag. EARS, NOSE, THROAT: Ears normal, nares patent, oropharynx clear without exudates. Moist mucous membranes. NECK: Normal range of motion, supple without lymphadenopathy, JVD, or masses. LUNGS: Breath sounds equal, clear to auscultation bilaterally. No wheezes, and no crackles. No accessory muscle use. HEART: Regular rate and rhythm, normal S1 and S2 without murmur, rub or gallop. ABDOMEN: Soft, nontender, not distended, normoactive bowel sounds, no guarding, no rebound, no masses. No hepatomegaly or splenomegaly. MUSCULOSKELETAL: Normal range of motion at all joints. No bony deformities or tenderness. No CVA tenderness. UPPER EXTREMITIES: 2+ pulses, warm, well-perfused. No cyanosis. No clubbing. No peripheral edema. LOWER EXTREMITIES: 2+ pulses, warm, well-perfused. No calf tenderness. No peripheral edema. NEUROLOGICAL: Cranial nerves II-XII intact. Normal speech. Normal gait. PSYCHIATRIC: Cooperative. Good eye contact. Appropriate mood and affect. SKIN: Warm, dry, normal turgor, no rashes or lesions noted, normal capillary refill. Laboratory Results - last 24 hr 07/21/20 07/21/20 07/21/20 19:00 19:00 19:00 WBC 7.1 RBC 3.65 Hgb 9.2 L Hct 28.2 L D MCV 77.1 L MCH 25.1 L MCHC 32.5 RDW 16.4 H Plt Count 217 MPV 7.5 Absolute Neuts (auto) 5.8 Neutrophils % 81.2 D Lymphocytes % 9.6 D Monocytes % 5.5 Eosinophils % 3.3 Basophils % 0.4 Nucleated RBC % 0 PT with INR 12.60 INR 1.07 PTT (Actin FS) 31.0 Sodium 142 Potassium 3.9 Chloride 109 H Carbon Dioxide 22 Anion Gap 11 BUN 29.6 H Creatinine 1.4 H Est GFR (CKD-EPI)AfAm 52.83 Est GFR (CKD-EPI)NonAf 45.58 Random Glucose 90 Calcium 8.7 Total Bilirubin 0.2 AST 16 ALT 19 Alkaline Phosphatase 88 Total Protein 7.1 Albumin 3.3 L Beta HCG, Quant < 1.0 Serum , Qual Blood Type Antibody Screen 07/21/20 07/21/20 19:00 19:00 WBC RBC Hgb Hct MCV MCH MCHC RDW Plt Count MPV Absolute Neuts (auto) Neutrophils % Lymphocytes % Monocytes % Eosinophils % Basophils % Nucleated RBC % PT with INR INR PTT (Actin FS) Sodium Potassium Chloride Carbon Dioxide Anion Gap BUN Creatinine Est GFR (CKD-EPI)AfAm Est GFR (CKD-EPI)NonAf Random Glucose Calcium Total Bilirubin AST ALT Alkaline Phosphatase Total Protein Albumin Beta HCG, Quant Serum , Qual Negative Blood Type O POSITIVE Antibody Screen Negative ASSESSMENT/PLAN: 44yo F with PMHx of multiple episodes of nephrolithiasis, pyelonephritis, tubal ligation, asthma, anxiety, tobacco use, anemia (has received transfusions) who presents with one month of worsening back and abdominal pain. CT scan showed moderately severe bilateral hydronephrosis and hydroureter, and 2.4cm left renal stone. Lab workup was remarkable for Hgb 9.2, MCV 77.1, BUN 29.6, Cr 1.4, and patient was admitted for treatment of severe pain secondary to nephrolithiasis/hydronephrosis vs ureteral stent occlusion. #severe pain secondary to nephrolithiasis/hydronephrosis vs ureteral stent occlusion Urology Dr. Maciel was contacted: recommended IVFs, abx, tamsulosin, NPO, and urine straining - will see the patient in the morning []morphine 2mg q3h, MS-Contin q12h scheduled []colace []US renal []PTH, phosph #ROSHAN - due to urological injury vs polypharmacy vs dehydration history of UTI(2013 w/ staph hominis, resistant to ceftriaxone, cipro, levofloxacin, unasyn) []consult Nephro []continue IVFs []avoid NSAIDs #microcytic anemia []iron panel ordered []may consider 500 venofer []consider GI consult to r/o GI pathology as source of bleeding #Fibroids with possible bleeding patient may benefit from a pelvic exam to further investigate source of bleeding []consider CERTIFIED MASSAGE THERAPIST consult [] TVUS #tobacco use []nicotine patch #FEN []NS @150cc/h []replete lytes PRN []NPO #DVT PPX []SCDs #Dispo: continue monitoring in [facility] Family Medical History Family History: As Documented Visit type - Emergency Visit Emergency Visit: Yes ED Registration Date: 07/21/20 Care time: The patient presented to the Emergency Department on the above date and was hospitalized for further evaluation of their emergent condition. - New Patient This patient is new to me today: Yes Date on this admission: 07/24/20 - Critical Care Critical Care patient: No ATTENDING PHYSICIAN STATEMENT I saw and evaluated the patient. I reviewed the resident's note and discussed the case with the resident. I agree with the resident's findings and plan as documented. SUBJECTIVE: OBJECTIVE: ASSESSMENT AND PLAN:
[2020-07-22] MEDS ORDERED: morphine SO4 SUSTAINED ACTING 15 MG TABLET.SA PO SCH (01:15)
[2020-07-22] MEDS ORDERED: DOCUSATE SODIUM 100 MG CAPSULE (FP) PO ONE (01:20)
[2020-07-22] MEDS ORDERED: morphine SO4 SUSTAINED ACTING 15 MG TABLET.SA ONE (01:20)
[2020-07-22] MEDS: DOCUSATE SODIUM 100 MG CAPSULE (FP) PO SCH ×3 (01:22→22:50)
[2020-07-22 05:25] LABS: EPI CELLS >36 /uL (0-25.1); HYALINE CASTS 38 /uL (0-3.1); URINE APPEARANCE TURBID; URINE BACTERIA >9,000 /uL (0-1359); URINE BILIRUBIN NEGATIVE (NEGATIVE); URINE COLOR ORANGE; URINE GLUCOSE (UA) NEGATIVE (NEGATIVE); URINE KETONE NEGATIVE (NEGATIVE); URINE LEUK ESTERASE 3+ (NEGATIVE); URINE NITRITE POSITIVE (NEGATIVE); URINE PROTEIN 3+ (NEGATIVE); URINE WBC 27494 /uL (0-25.8)
[2020-07-22 07:47] LABS: BASO % 1.1 % (0-2.0); EOS % 4.2 % (0-4.5); HEMATOCRIT 24.8 % (32.4-45.2); MEAN CELL VOLUME 78.1 fl (80-96); MEAN PLT VOLUME 7.3 fl (7.5-11.1); MONO % 9.4 % (3.8-10.2); NEUT % 71.3 % (42.8-82.8); PLATELET COUNT 172 K/MM3 (134-434); RBC 3.18 M/mm3 (3.60-5.2); RDW 16.7 % (11.6-15.6); WHITE BLOOD COUNT 5.3 K/mm3 (4.0-10.0)
[2020-07-22 08:26] LABS: ALBUMIN 2.5 g/dl (3.4-5.0); BILIRUBIN,TOTAL 0.3 mg/dL (0.2-1); BLOOD UREA NITROGEN 26.9 mg/dL (7-18); CALCIUM 7.6 mg/dL (8.5-10.1); CREATININE 1.3 mg/dL (0.55-1.3); MAGNESIUM 1.9 mg/dL (1.8-2.4); PHOSPHOROUS 3.2 mg/dL (2.5-4.9); POTASSIUM 4.1 mmol/L (3.5-5.1); TOT PROT 5.9 g/dl (6.4-8.2)
--- NOTE | 2020-07-22 08:27 | CONS ---
DATE OF CONSULTATION: 07/21/2020 DATE OF DICTATION: 07/21/2020 HISTORY OF PRESENT ILLNESS: Patient is a 44-year-old female with a past medical history of nephrolithiasis. She reports that she has been having vaginal bleeding and has abdominal pain of 1 month's duration. She states that she has been passing large clots and has soaking pads. Patient does complain of mild shortness of breath and chest pain. She denies any other related symptom. She is allergic to PENICILLIN. She had a CAT scan in the emergency room; and this revealed bilateral ureteral stents with moderately severe bilateral hydronephrosis and hydroureter, right greater than left. There was a 2.4-cm lower pole renal stone in addition to nonobstructing stones within the left kidney. She also had hepatosplenomegaly. No other pathology was seen. The patient's white count is 7.1, hemoglobin and hematocrit . PT is 12.6, INR is 1.07. BUN is 26.6 and creatinine is 1.4. Her COVID-19 test is also pending. PHYSICAL EXAMINATION:Vital Signs: Presently, she is afebrile at a temperature of 98.9, pulse 84, blood pressure 86/60, respirations 24 and a pulse oximetry of 100. LABORATORY DATA: Urinalysis has been clear with no bleeding. IMPRESSION: At present is 44-year-old female with bilateral obstructed stents, bilateral hydronephrosis, left renal stones. PLAN: Is for a cystoscopy and bilateral stent exchange and possible left laser lithotripsy. Will follow with you. Will recommend hydration, Flomax 0.4 mg and straining her urine. Mary [id number]
[2020-07-22] MEDS ORDERED: TAMSULOSIN HCL 0.4 MG CAP ONE (08:33)
[2020-07-22] MEDS: TAMSULOSIN HCL 0.4 MG CAP PO SCH (08:43)
--- NOTE | 2020-07-22 10:06 | CONSULT ---
Consult Consult Specialty:: UROLOGY Reason for Consultation:: Bilateral hydronephrosis - History of Present Illness Chief Complaint: 44 Y/O Female patient with history of Renal stones S/P Bilateral jj stents insertion c/o Bilateral flank pain for 3 days scale 10/10, dysuria frequency lower abd pain gross hematuria. She is admitted and started on levaquine. O/E Tender lower abd and bilateral CVA. WBC 5 HB 8. BUN [address]-scan bilateral bydronephrosis-moderate, bilateral jj stent inplace. Left Renal stone - Past Medical History Pulmonary: Yes: Asthma. No: Bronchitis, Cancer, COPD, O2 Dependent, Pneumonia, Previously Intubated, Pulmonary Embolus, Pulmonary Fibrosis, Sleep Apnea, Other Renal/: Yes: Hematuria, Renal Calculi, UTI ...LMP: 12/26/19 ...: No Psych: Yes: Anxiety, Panic. No: Addictions, Bipolar, Depression, Psychosis, Schizophrenia, Other - Past Surgical History Past Surgical History: Yes: Cholecystectomy, (x4). No: None, AAA Repair, AICD, Amputation, Appendectomy, Arthrosocopy, AV Fistula/Graft, Bariatric Surgery, Breast Biopsy, Bypass, CABG, Carotid Endarterectomy, Cataract Removal, Colectomy, Colonoscopy, Colostomy, Craniotomy, Cystectomy, Hernia Repair, Hysterectomy, Ileal Conduit, Ileosotomy, Joint Replacement, Kidney Transplant, Laminectomy, Liver Transplant, Mastectomy, Nephrectomy, Oopherectomy, Orchiectomy, Permanent Pacemaker, Prostatectomy, Splenectomy, Stent, Thoracotomy, TURP, Tonsillectomy, Tubal Ligation, Upper Endoscopy, Valve Replacement, Vasectomy, Vein Stripping/Ligation - Alcohol/Substance Use Hx Alcohol Use: Yes History of Substance Use: reports: None - Smoking History Smoking history: Current some day smoker Have you smoked in the past 12 months: Yes Aproximately how many cigarettes per day: 15 - Social History ADL: Independent History of Recent Travel: No Home Medications - Allergies Allergies/Adverse Reactions: Allergies Allergy/AdvReac Type Severity Reaction Status Date / Time Penicillins Allergy Verified 07/21/20 19:25 - Home Medications Home Medications: Ambulatory Orders Ferrous Sulfate 325 mg PO ASDIR 10/26/17 [place] Carbonate [Eskalith -] 600 mg PO BID 12/02/17 Physical Exam Vital Signs: Vital Signs Temperature 97.8 F 07/22/20 05:18 Pulse Rate 71 07/22/20 05:18 Respiratory Rate 20 07/22/20 08:20 Blood Pressure 92/56 L 07/22/20 05:18 O2 Sat by Pulse Oximetry (%) 97 07/22/20 08:20 Labs: CBC, BMP 07/22/20 07:38 07/22/20 06:00 Assessment/Plan Bilateral Renal stones and hydronephrosis with jj stents Anemia UTI Plan: IV ABx NPO after midnight for tomorrow D/C stent and RGS
--- NOTE | 2020-07-22 11:03 | EKG ---
Test Reason : Blood Pressure : / mmHG Vent. Rate : 093 BPM Atrial Rate : 093 BPM P-R Int : 170 ms QRS Dur : 102 ms QT Int : 366 ms P-R-T Axes : 044 025 045 degrees QTc Int : 455 ms NORMAL SINUS RHYTHM INCOMPLETE RIGHT BUNDLE BRANCH BLOCK WHEN COMPARED WITH ECG OF 14-FEB-2005 18:02, VENT. RATE HAS INCREASED BY 36 BPM INCOMPLETE RIGHT BUNDLE BRANCH BLOCK IS NOW PRESENT Confirmed by ANGELINA GRUBBS MD ([id number]) on 07/22/2020 11:03:14 AM Referred By: Confirmed By:ANGELINA GRUBBS MD
[2020-07-22] MEDS ORDERED: PT OWN MED DRAWER 7, Y5N ONE ×5 (11:08→22:45)
[2020-07-22] MEDS: NICOTINE 7 MG/24 HOURS TOPICAL PATCH TD SCH (11:17)
--- NOTE | 2020-07-22 11:17 | PN ---
Progress Note, Physician Chief Complaint: Abdominal pain History of Present Illness: 44 Y/O Female patient with history of Renal stones S/P Bilateral jj stents insertion c/o Bilateral flank pain for 3 days scale 10/10, dysuria frequency lower abd pain gross hematuria. She is admitted and started on levaquine. O/E T niurka lower abd and bilateral CVA. WBC 5 HB 8. BUN [address]-scan bilateral bydronephrosis-moderate, bilateral jj stent inplace. Left Renal stone NAD c/o mild pain at the moment c/o itching after getting morphine, similar reaction in the past - Current Medication List Current Medications: Active Medications Docusate Sodium (Colace -) 100 mg PO BID [facility] Last Admin: 07/22/20 01:22 Dose: 100 mg Documented by: Sodium Chloride (Normal Saline -) 1,000 mls @ 150 mls/hr IV ASDIR [facility] Last Admin: 07/21/20 22:35 Dose: 150 mls/hr Documented by: Morphine Sulfate (Morphine Sulfate) 2 mg IVPUSH Q3H PRN PRN Reason: PAIN LEVEL 7 - 10 Last Admin: 07/22/20 09:44 Dose: 2 mg Documented by: Morphine Sulfate (Ms Contin -) 15 mg PO Q12H [facility] Last Admin: 07/22/20 01:21 Dose: 15 mg Documented by: Nicotine (Nicoderm Patch -) 7 mg TD DAILY [facility] Tamsulosin HCl (Flomax -) 0.8 mg PO DAILY@0830 [facility] Last Admin: 07/22/20 08:43 Dose: 0.8 mg Documented by: - Objective Vital Signs: Vital Signs Temperature 98.1 F 07/22/20 09:40 Pulse Rate 79 07/22/20 09:40 Respiratory Rate 19 07/22/20 09:40 Blood Pressure 103/60 07/22/20 09:40 O2 Sat by Pulse Oximetry (%) 100 07/22/20 09:40 Constitutional: Yes: Well Nourished, No Distress, Calm Cardiovascular: Yes: Regular Rate and Rhythm Respiratory: Yes: Regular, CTA Bilaterally Gastrointestinal: Yes: Normal Bowel Sounds, Soft Genitourinary: Yes: WNL Musculoskeletal: Yes: WNL Extremities: Yes: WNL Edema: No Peripheral Pulses WNL: Yes Labs: CBC, BMP 07/22/20 07:38 07/22/20 06:00 INR, PTT INR 1.07 (0.83-1.09) 07/21/20 19:00 Problem List - Problems (1) UTI (urinary tract infection) Assessment/Plan: - ID consult -UA + 3 blood, + 3 leuks, + 3 protein, + nitrite -UC pending -afebrile Problems reviewed: Yes Code(s): N39.0 - URINARY TRACT INFECTION, SITE NOT SPECIFIED (2) Hydronephrosis Assessment/Plan: -Seen by Urology -NPO past midnight for stent removal -Pain management: Acetaminophen 1g IVPB Q6h prn for pain 1-5 Dilaudid 2 mg Q6H PRN for pain 6-10 Problems reviewed: Yes Code(s): N13.30 - UNSPECIFIED HYDRONEPHROSIS (3) Anemia Assessment/Plan: -Chronic LIYA -Continue ferrous sulfate -Also check b12, thyroid profile and stool OB -Monitor h/h -Transfuse for hg<7.0 Problems reviewed: Yes Code(s): D64.9 - ANEMIA, UNSPECIFIED Qualifiers: Anemia type: iron deficiency Assessment/Plan See problem list
[2020-07-22] MEDS ORDERED: hydrOXYzine PAMOATE 25 MG CAPSULE (FP) PO PRN (12:44)
[2020-07-22] MEDS ORDERED: ONDANSETRON 4 MG/2 ML VIAL IVPB PRN (12:48)
[2020-07-22] MEDS: FERROUS SO4 325 MG TABLET (FP) PO SCH (13:12)
[2020-07-22] MEDS: CYANOCOBALAMIN 1,000 MCG TABLET (FP) PO SCH (13:12)
[2020-07-22] MEDS: LITHIUM CARBONATE 300 MG CAPSULE (FP) PO SCH ×2 (13:13→22:51)
[2020-07-22] MEDS: ACETAMINOPHEN 1000 MG/100 ML VIAL (NON FORMULARY) IVPB PRN ×2 (14:40→20:41)
[2020-07-22] MEDS: HYDROmorphone HCl 2 MG/ML VIAL IVPB PRN ×2 (16:27→22:50)
[2020-07-22] MEDS: SODIUM CHLORIDE 1,000 ML IV SCH ×2 (16:30→22:47)
[2020-07-22 20:13] VITALS: BMI 26.8
--- NOTE | 2020-07-22 22:07 | PN ---
Progress Note (short form) - Note Progress Note: UROLOGY NOTE. PT. WITH B/L HYDRONEPHROSIS AND B/L OBSTRUCTED JJ STENT. WBC=5.4, H/H=8/28.8 BUN/CREAT.28/1.3 , URINE C/S-PENDING. PLAN- CYSTO B/L JJ STENT EXCHANGE IN AM.WILL KEEP PT. NPO POST MIDNIGHT.
[2020-07-23] MEDS: ACETAMINOPHEN 1000 MG/100 ML VIAL (NON FORMULARY) IVPB PRN (03:46)
[2020-07-23] MEDS ORDERED: ONDANSETRON 4 MG/2 ML VIAL IVPUSH PRN ×2 (08:41→10:39)
[2020-07-23] MEDS ORDERED: LACTATED RINGERS SOLUTION 1,000 ML IV SCH ×2 (08:45→10:39)
[2020-07-23] MEDS ORDERED: PROPOFOL 20 ML ONE ×2 (09:01→09:46)
[2020-07-23] MEDS ORDERED: MIDAZOLAM HCL 2 MG/2 ML SINGLE DOSE VIAL ONE (09:01)
[2020-07-23] MEDS ORDERED: LIDOCAINE HCL/PF 2% SDV 5ML VIAL ONE (09:03)
[2020-07-23] MEDS ORDERED: DEXAMETHASONE SOD PHOSPHATE 4 MG/1 ML VIAL ONE (09:03)
[2020-07-23] MEDS ORDERED: KETOROLAC TROMETHAMINE 30 MG/1 ML VIAL ONE (09:03)
[2020-07-23] MEDS ORDERED: SUCCINYLCHOLINE CHLORIDE 200 MG/10 ML SYRINGE ONE (09:05)
[2020-07-23 09:39] LABS: BASO % 0.7 % (0-2.0); HEMATOCRIT 25.6 % (32.4-45.2); HEMOGLOBIN 8.3 GM/dL (10.7-15.3); LYMPH % 16.1 % (8-40); MCH 25.1 pg (25.7-33.7); MCHC 32.4 g/dl (32.0-36.0); MEAN CELL VOLUME 77.5 fl (80-96); MEAN PLT VOLUME 7.4 fl (7.5-11.1); MONO % 9.6 % (3.8-10.2); NEUT % 69.6 % (42.8-82.8); PLATELET COUNT 198 K/MM3 (134-434); RBC 3.31 M/mm3 (3.60-5.2); RDW 16.7 % (11.6-15.6); WHITE BLOOD COUNT 4.4 K/mm3 (4.0-10.0)
[2020-07-23] MEDS ORDERED: GENTAMICIN SO4 80 MG/2 ML VIAL ONE (09:45)
[2020-07-23 10:04] LABS: ALBUMIN 2.6 g/dl (3.4-5.0); BILIRUBIN,TOTAL 0.3 mg/dL (0.2-1); BLOOD UREA NITROGEN 20.9 mg/dL (7-18); CALCIUM 8.4 mg/dL (8.5-10.1); CREATININE 1.3 mg/dL (0.55-1.3); POTASSIUM 4.3 mmol/L (3.5-5.1); TOT PROT 6.4 g/dl (6.4-8.2)
--- NOTE | 2020-07-23 10:31 | OP ---
Operative Note - Note: Operative Date: 07/23/20 Pre-Operative Diagnosis: b/l hydro, b/l jj stents/ b/l renal stones Operation: cysto, b/l retro. d/c b/l jj stents stone retrieval of b/l stones ,b/l jj stent insertions Findings: b/l hydro, b/l jj stents, b/l renal stones Post-Operative Diagnosis: Same as Pre-op Surgeon: Jorge Maciel Anesthesia: General Specimens Removed: b/l jj stents, renal stones, urine Estimated Blood Loss (mls): 0 Instrument used (Debridements only): 0 Drains & Tubes with Location: 2x 24cm-6f jj stents Drains, Volume Out (mls): 0 Blood Volume Replaced (mls): 0 Fluid Volume Replaced (mls): 0 Operative Report Dictated: Yes
[2020-07-23] MEDS ORDERED: PATIENT'S OWN MEDICATION (NON-FORMULARY) (Ferrous Sulfate [Ferrous Sulfate] 325 MG) PO SCH (10:39)
[2020-07-23] MEDS ORDERED: ONDANSETRON 4 MG/2 ML VIAL IVPB PRN (10:39)
[2020-07-23] MEDS ORDERED: ACETAMINOPHEN 1000 MG/100 ML VIAL (NON FORMULARY) IVPB PRN (10:39)
--- NOTE | 2020-07-23 10:57 | OP ---
DATE OF OPERATION: 07/23/2020 PREOPERATIVE DIAGNOSES: Bilateral hydronephrosis, bilateral blocked JJ stents, bilateral renal stones. POSTOPERATIVE DIAGNOSES: Bilateral hydronephrosis, bilateral blocked JJ stents, bilateral renal stones. OPERATIVE PROCEDURE: Cystourethroscopy, discontinuation of bilateral JJ stents, bilateral retrograde pyelograms, bilateral ureteroscopies with stone retrieval and placement of bilateral JJ stents. ANESTHESIA: General. DESCRIPTION OF PROCEDURE: Under above-stated anesthesia, patient was prepped and draped in the usual sterile manner. She was placed in the dorsal lithotomy position. External genitalia revealed a grade 3 cystorectocele. The bladder was entered. Purulent urine was collected and sent for culture and sensitivity. Inspection of the bladder revealed bilateral JJ stents protruding from the bilateral ureteral orifices. Both stents were removed with a grasping forceps. Bilateral retrograde pyelograms were then performed. This revealed bilateral grade 3 hydroureteronephrosis. There were multiple filling defects in the right and left ureter. There was a large 3-cm stone in the left renal pelvis. Therefore, bilateral ureteroscopies were performed. A stone basket was used, and several stones were retrieved from the right and left side. Bilateral double-J stents were placed under x-ray control. They were 24-cm 6-Syriac. No active bleeding was noted. The bladder was emptied. The scope was removed. The patient tolerated the procedure well. She returned to the recovery room in good condition. Mary [id number]
[2020-07-23] MEDS: SODIUM CHLORIDE 1,000 ML IV SCH (12:08)
[2020-07-23] MEDS: DOCUSATE SODIUM 100 MG CAPSULE (FP) PO SCH ×2 (12:09→21:35)
[2020-07-23] MEDS: CYANOCOBALAMIN 1,000 MCG TABLET (FP) PO SCH (12:09)
[2020-07-23] MEDS: NICOTINE 7 MG/24 HOURS TOPICAL PATCH TD SCH (12:09)
[2020-07-23] MEDS: LITHIUM CARBONATE 300 MG CAPSULE (FP) PO SCH (12:09)
[2020-07-23] MEDS: FERROUS SO4 325 MG TABLET (FP) PO SCH (12:09)
[2020-07-23] MEDS: TAMSULOSIN HCL 0.4 MG CAP PO SCH (12:10)
--- NOTE | 2020-07-23 12:33 | PN ---
Progress Note (short form) - Note Progress Note: UROLOGY NOTE S/P Bilateral jj stent replacement today. She is doing better no pain no fever, clear urine. O/E soft lax abd no palpable bladder. WBC 4.4 HB 8.3 BUN 20 S.Creat 1.3 plan: keep IV abx increase fluids intake will schedule ESWL as outpatient.
--- NOTE | 2020-07-23 13:33 | PN ---
Progress Note, Physician Chief Complaint: SEDATED POSTOP EVENTS REVIEWED - Current Medication List Current Medications: Active Medications Cyanocobalamin (Vitamin B12 -) 1,000 mcg PO DAILY [facility] Diphenhydramine HCl (Benadryl Injection -) 25 mg IVPUSH Q6H PRN PRN Reason: FOR ITCHING Docusate Sodium (Colace -) 100 mg PO BID [facility] Hydromorphone HCl (Dilaudid Vial -) 2 mg IVPB Q6H PRN PRN Reason: PAIN LEVEL 6-10 Lactated Ringer's (Lactated Ringers Solution) 1,000 mls @ 75 mls/hr IV ASDIR [facility] Last Admin: 07/23/20 12:08 Dose: 75 mls/hr Documented by: Sodium Chloride (Normal Saline -) 1,000 mls @ 150 mls/hr IV ASDIR [facility] Last Admin: 07/23/20 12:08 Dose: Not Given Documented by: Nicotine (Nicoderm Patch -) 7 mg TD DAILY [facility] Non-Formulary Medication ([place] Carbonate [Eskalith -]) 600 mg PO BID [facility] Non-Formulary Medication (Ferrous Sulfate [Ferrous Sulfate]) 325 mg PO ASDIR [facility] Ondansetron HCl (Zofran Injection) 4 mg IVPUSH Q6H PRN PRN Reason: NAUSEA AND/OR VOMITING Ondansetron HCl (Zofran Injection) 8 mg IVPB Q8H PRN PRN Reason: NAUSEA Tamsulosin HCl (Flomax -) 0.8 mg PO DAILY@0830 [facility] - Objective Vital Signs: Vital Signs Temperature 98.1 F 07/23/20 11:05 Pulse Rate 61 07/23/20 11:05 Respiratory Rate 18 07/23/20 11:05 Blood Pressure 99/52 L 07/23/20 11:05 O2 Sat by Pulse Oximetry (%) 97 07/23/20 11:05 Constitutional: Yes: No Distress Cardiovascular: Yes: Regular Rate and Rhythm Respiratory: Yes: WNL Gastrointestinal: Yes: WNL Genitourinary: Yes: Drake Present Musculoskeletal: Yes: Muscle Weakness Peripheral Pulses WNL: Yes Labs: CBC, BMP 07/23/20 08:30 07/23/20 08:30 INR, PTT INR 1.07 (0.83-1.09) 07/21/20 19:00 Problem List - Problems (1) Hydronephrosis Code(s): N13.30 - UNSPECIFIED HYDRONEPHROSIS Assessment/Plan IV FLUIDS IV ABX PAIN CONTROL DVT PROPHYLAXIS OOB TO CHAIR
[2020-07-23] MEDS: HYDROmorphone HCl 2 MG/ML VIAL IVPB PRN ×2 (13:57→20:37)
[2020-07-23] MEDS ORDERED: LITHIUM CARBONATE PO SCH (22:00)
--- NOTE | 2020-07-23 23:13 | PN ---
Progress Note, Physician - Current Medication List Current Medications: Active Medications Cyanocobalamin (Vitamin B12 -) 1,000 mcg PO DAILY [facility] Diphenhydramine HCl (Benadryl Injection -) 25 mg IVPUSH Q6H PRN PRN Reason: FOR ITCHING Last Admin: 07/23/20 21:35 Dose: 25 mg Documented by: Docusate Sodium (Colace -) 100 mg PO BID [facility] Last Admin: 07/23/20 21:35 Dose: 100 mg Documented by: Hydromorphone HCl (Dilaudid Vial -) 2 mg IVPB Q6H PRN PRN Reason: PAIN LEVEL 6-10 Last Admin: 07/23/20 20:37 Dose: 2 mg Documented by: Lactated Ringer's (Lactated Ringers Solution) 1,000 mls @ 75 mls/hr IV ASDIR S Last Admin: 07/23/20 12:08 Dose: 75 mls/hr Documented by: Sodium Chloride (Normal Saline -) 1,000 mls @ 150 mls/hr IV ASDIR [facility] Last Admin: 07/23/20 12:08 Dose: Not Given Documented by: Nicotine (Nicoderm Patch -) 7 mg TD DAILY [facility] Non-Formulary Medication ([place] Carbonate [Eskalith -]) 600 mg PO BID [facility] Non-Formulary Medication (Ferrous Sulfate [Ferrous Sulfate]) 325 mg PO ASDIR [facility] Ondansetron HCl (Zofran Injection) 4 mg IVPUSH Q6H PRN PRN Reason: NAUSEA AND/OR VOMITING Ondansetron HCl (Zofran Injection) 8 mg IVPB Q8H PRN PRN Reason: NAUSEA Tamsulosin HCl (Flomax -) 0.8 mg PO DAILY@0830 [facility] - Objective Vital Signs: Vital Signs Temperature 98.8 F 07/23/20 20:48 Pulse Rate 76 07/23/20 20:48 Respiratory Rate 18 07/23/20 20:48 Blood Pressure 113/62 07/23/20 20:48 O2 Sat by Pulse Oximetry (%) 97 07/23/20 20:48 Labs: CBC, BMP 07/23/20 08:30 07/23/20 08:30 INR, PTT INR 1.07 (0.83-1.09) 07/21/20 19:00
[2020-07-24] MEDS: SODIUM CHLORIDE 1,000 ML IV SCH ×2 (00:06→15:37)
[2020-07-24] MEDS: HYDROmorphone HCl 2 MG/ML VIAL IVPB PRN ×4 (05:15→22:32)
[2020-07-24] MEDS ORDERED: INSULIN (NOVOLOG) ASPART 100 UNITS/ML 10ML VIAL ONE (06:34)
[2020-07-24] MEDS ORDERED: INSULIN (LEVEMIR) 100 UNITS/ML UNITS SQ ONE (06:34)
--- NOTE | 2020-07-24 07:56 | PN ---
Progress Note, Physician Chief Complaint: awake alert pod #1 no fever no chills - Current Medication List Current Medications: Active Medications Cyanocobalamin (Vitamin B12 -) 1,000 mcg PO DAILY [facility] Diphenhydramine HCl (Benadryl Injection -) 25 mg IVPUSH Q6H PRN PRN Reason: FOR ITCHING Last Admin: 07/24/20 05:18 Dose: 25 mg Documented by: Docusate Sodium (Colace -) 100 mg PO BID [facility] Last Admin: 07/23/20 21:35 Dose: 100 mg Documented by: Hydromorphone HCl (Dilaudid Vial -) 2 mg IVPB Q6H PRN PRN Reason: PAIN LEVEL 6-10 Last Admin: 07/24/20 05:15 Dose: 2 mg Documented by: Lactated Ringer's (Lactated Ringers Solution) 1,000 mls @ 75 mls/hr IV ASDIR [facility] Last Admin: 07/23/20 12:08 Dose: 75 mls/hr Documented by: Sodium Chloride (Normal Saline -) 1,000 mls @ 150 mls/hr IV ASDIR [facility] Last Admin: 07/24/20 00:06 Dose: 150 mls/hr Documented by: Nicotine (Nicoderm Patch -) 7 mg TD DAILY [facility] Non-Formulary Medication ([place] Carbonate [Eskalith -]) 600 mg PO BID [facility] Non-Formulary Medication (Ferrous Sulfate [Ferrous Sulfate]) 325 mg PO ASDIR [facility] Ondansetron HCl (Zofran Injection) 4 mg IVPUSH Q6H PRN PRN Reason: NAUSEA AND/OR VOMITING Ondansetron HCl (Zofran Injection) 8 mg IVPB Q8H PRN PRN Reason: NAUSEA Tamsulosin HCl (Flomax -) 0.8 mg PO DAILY@0830 [facility] - Objective Vital Signs: Vital Signs Temperature 98.7 F 07/24/20 05:00 Pulse Rate 56 L 07/24/20 05:00 Respiratory Rate 18 07/24/20 05:00 Blood Pressure 113/65 07/24/20 05:00 O2 Sat by Pulse Oximetry (%) 98 07/24/20 05:00 Constitutional: Yes: Mild Distress Cardiovascular: Yes: Regular Rate and Rhythm Respiratory: Yes: WNL Gastrointestinal: Yes: WNL Genitourinary: Yes: WNL Musculoskeletal: Yes: WNL Edema: No Integumentary: Yes: Tattoos, Other Wound/Incision: Yes: Clean/Dry Neurological: Yes: WNL ...Motor Strength: WNL Psychiatric: Yes: Other Labs: CBC, BMP 07/23/20 08:30 07/23/20 08:30 INR, PTT INR 1.07 (0.83-1.09) 07/21/20 19:00 Problem List - Problems (1) Hydronephrosis Code(s): N13.30 - UNSPECIFIED HYDRONEPHROSIS Assessment/Plan iv abx per id dc ivf benadryl prn patient has an allergy to codeine but insists she wants to continue on dilaudid now and wants benadryl gu f/u dc planning
[2020-07-24 08:58] LABS: BASO % 0.4 % (0-2.0); EOS % 1.5 % (0-4.5); HEMATOCRIT 23.2 % (32.4-45.2); HEMOGLOBIN 7.6 GM/dL (10.7-15.3); MCH 25.2 pg (25.7-33.7); MCHC 32.8 g/dl (32.0-36.0); MEAN CELL VOLUME 76.8 fl (80-96); MEAN PLT VOLUME 7.4 fl (7.5-11.1); MONO % 7.3 % (3.8-10.2); NEUT % 72.8 % (42.8-82.8); PLATELET COUNT 229 K/MM3 (134-434); RBC 3.02 M/mm3 (3.60-5.2); RDW 16.4 % (11.6-15.6); WHITE BLOOD COUNT 6.1 K/mm3 (4.0-10.0)
[2020-07-24] MEDS ORDERED: PT OWN MED DRAWER 7, Y5N ONE ×2 (09:14→12:16)
[2020-07-24 09:24] LABS: ALBUMIN 2.5 g/dl (3.4-5.0); BILIRUBIN,TOTAL 0.6 mg/dL (0.2-1); BLOOD UREA NITROGEN 17.7 mg/dL (7-18); CALCIUM 8.4 mg/dL (8.5-10.1); CREATININE 1.1 mg/dL (0.55-1.3); TOT PROT 6.3 g/dl (6.4-8.2)
[2020-07-24] MEDS: FERROUS SO4 325 MG TABLET (FP) PO SCH (09:27)
[2020-07-24] MEDS: DOCUSATE SODIUM 100 MG CAPSULE (FP) PO SCH ×2 (09:27→21:39)
[2020-07-24] MEDS: TAMSULOSIN HCL 0.4 MG CAP PO SCH (09:27)
[2020-07-24] MEDS: NICOTINE 7 MG/24 HOURS TOPICAL PATCH TD SCH (09:28)
[2020-07-24] MEDS: CYANOCOBALAMIN (VITAMIN B-12) 100 MCG TABLET PO SCH (09:28)
[2020-07-24] MEDS ORDERED: CYANOCOBALAMIN 1,000 MCG TABLET (FP) PO SCH (10:00)
--- NOTE | 2020-07-24 23:00 | PN ---
Progress Note, Physician Chief Complaint: C/O GENERALIZED PRURITIS WITH ANALGESIC, HEMATURIA NO C/O DYSURIA NO F/C - Current Medication List Current Medications: Active Medications Cyanocobalamin (Vitamin B12 -) 100 mcg PO DAILY [facility] Last Admin: 07/24/20 09:28 Dose: 100 mcg Documented by: Diphenhydramine HCl (Benadryl Injection -) 25 mg IVPUSH Q6H PRN PRN Reason: FOR ITCHING Last Admin: 07/24/20 22:35 Dose: 25 mg Documented by: Docusate Sodium (Colace -) 100 mg PO BID [facility] Last Admin: 07/24/20 21:39 Dose: 100 mg Documented by: Ferrous Sulfate (Feosol -) 325 mg PO DAILY [facility] Last Admin: 07/24/20 09:27 Dose: 325 mg Documented by: Hydromorphone HCl (Dilaudid Vial -) 2 mg IVPB Q6H PRN PRN Reason: PAIN LEVEL 6-10 Last Admin: 07/24/20 22:32 Dose: 2 mg Documented by: Sodium Chloride (Normal Saline -) 1,000 mls @ 150 mls/hr IV ASDIR [facility] Last Admin: 07/24/20 15:37 Dose: 150 mls/hr Documented by: Levofloxacin (Levaquin 500 Mg Premixed Ivpb -) 500 mg in 100 mls @ 100 mls/hr IVPB DAILY [facility]; Protocol Last Admin: 07/24/20 12:13 Dose: 100 mls/hr Documented by: Nicotine (Nicoderm Patch -) 7 mg TD DAILY [facility] Last Admin: 07/24/20 09:28 Dose: 7 mg Documented by: Non-Formulary Medication ([place] Carbonate [Eskalith -]) 600 mg PO BID [facility] Ondansetron HCl (Zofran Injection) 4 mg IVPUSH Q6H PRN PRN Reason: NAUSEA AND/OR VOMITING Ondansetron HCl (Zofran Injection) 8 mg IVPB Q8H PRN PRN Reason: NAUSEA Tamsulosin HCl (Flomax -) 0.8 mg PO DAILY@829 [facility] Last Admin: 07/24/20 09:27 Dose: 0.8 mg Documented by: Zinc Acetate/Diphenhydramine (Benadryl 2% Cream) 1 applic TP BID [facility] Last Admin: 08/30/20 21:39 Dose: 1 applic Documented by: - Objective Vital Signs: Vital Signs Temperature 98.2 F 07/24/20 15:00 Pulse Rate 62 07/24/20 15:00 Respiratory Rate 16 07/24/20 15:00 Blood Pressure 106/66 07/24/20 15:00 O2 Sat by Pulse Oximetry (%) 98 07/24/20 15:00 Constitutional: Yes: No Distress Eyes: Yes: Conjunctiva Clear Cardiovascular: Yes: Regular Rate and Rhythm, S1, S2 Respiratory: Yes: CTA Bilaterally Gastrointestinal: Yes: Normal Bowel Sounds Edema: No Labs: CBC, BMP 07/24/20 08:02 07/24/20 08:04 INR, PTT INR 1.07 (0.83-1.09) 07/21/20 19:00 Assessment/Plan S/P CYSTO HEMATURIA PCN ALLERGY CONTINUE LEVAQUIN
[2020-07-25] MEDS: SODIUM CHLORIDE 1,000 ML IV SCH ×2 (00:44→11:32)
[2020-07-25 08:50] LABS: BASO % 0.6 % (0-2.0); EOS % 3.6 % (0-4.5); HEMATOCRIT 23.1 % (32.4-45.2); HEMOGLOBIN 7.5 GM/dL (10.7-15.3); LYMPH % 30.2 % (8-40); MCH 24.9 pg (25.7-33.7); MCHC 32.6 g/dl (32.0-36.0); MEAN CELL VOLUME 76.3 fl (80-96); MEAN PLT VOLUME 7.1 fl (7.5-11.1); MONO % 8.6 % (3.8-10.2); PLATELET COUNT 203 K/MM3 (134-434); RBC 3.03 M/mm3 (3.60-5.2); RDW 16.4 % (11.6-15.6); WHITE BLOOD COUNT 4.5 K/mm3 (4.0-10.0)
[2020-07-25 09:33] LABS: ALBUMIN 2.6 g/dl (3.4-5.0); BILIRUBIN,TOTAL 0.2 mg/dL (0.2-1); BLOOD UREA NITROGEN 16.2 mg/dL (7-18); CALCIUM 8.2 mg/dL (8.5-10.1); CREATININE 0.9 mg/dL (0.55-1.3); POTASSIUM 3.6 mmol/L (3.5-5.1); TOT PROT 6.3 g/dl (6.4-8.2)
[2020-07-25] MEDS ORDERED: PT OWN MED DRAWER 7, Y5N ONE (11:18)
[2020-07-25] MEDS: DOCUSATE SODIUM 100 MG CAPSULE (FP) PO SCH (11:28)
[2020-07-25] MEDS: TAMSULOSIN HCL 0.4 MG CAP PO SCH (11:28)
[2020-07-25] MEDS: FERROUS SO4 325 MG TABLET (FP) PO SCH (11:28)
[2020-07-25] MEDS: CYANOCOBALAMIN (VITAMIN B-12) 100 MCG TABLET PO SCH (11:29)
[2020-07-25] MEDS: NICOTINE 7 MG/24 HOURS TOPICAL PATCH TD SCH (11:31)
[2020-07-25] MEDS ORDERED: traMADol HCL 50 MG TABLET PO PRN (11:43)
[2020-07-25] MEDS ORDERED: oxyCODONE HCL 5 MG TABLET PO PRN (11:43)
[2020-07-25] MEDS ORDERED: ACETAMINOPHEN 500 MG TABLET (FP) PO PRN (11:45)
--- NOTE | 2020-07-25 11:45 | DS ---
Physical Examination Vital Signs: Vital Signs Temperature 98.6 F 07/25/20 06:00 Pulse Rate 58 L 07/25/20 06:00 Respiratory Rate 18 07/25/20 06:00 Blood Pressure 113/67 07/25/20 06:00 O2 Sat by Pulse Oximetry (%) 100 07/25/20 06:00 Findings/Remarks: 44yo F with PMHx of multiple episodes of nephrolithiasis, pyelonephritis, tubal ligation, asthma, anxiety, tobacco use, anemia (has received transfusions) who presents with one month of worsening back and abdominal pain. About a month ago, the pain started in her back, which prompted her to go to [facility]. There, she was found to have kidney stones so they did lithotripsy and placed bilateral ureteral stents. Despite the interventions, her pain continued to get worse. She tried aleve, ibuprofen, and percocet from a friend that gave her minimal relief. Today the pain became unbearable, which made her come to the ED. Patient also explained that she has been bleeding "from her insides", so much that she would bleed through her pads, underwear, and pants. Therefore she now has to wear diapers. She endorsed occasional dizziness and epigastric pain, and patient has been experiencing generalized pruritis since coming to the hospital which has been causing her significant distress in addition to the pain. Patient denied headaches, NVD, constipation, urinary frequency, and dysuria. Patient said she takes no medications. COVID pending. Constitutional: Yes: Well Nourished, No Distress, Calm Cardiovascular: Yes: Regular Rate and Rhythm Respiratory: Yes: Regular, CTA Bilaterally Gastrointestinal: Yes: Normal Bowel Sounds, Soft Renal/: Yes: WNL Musculoskeletal: Yes: WNL Extremities: Yes: WNL Edema: No Peripheral Pulses WNL: Yes Neurological: Yes: Alert, Oriented Psychiatric: Yes: Alert, Oriented Labs: CBC, BMP 07/25/20 07:38 07/25/20 07:38 Discharge Summary Problems reviewed: Yes Reason For Visit: HEMATURIA,CALCULUS OF KIDNEY,HYDRONEPHROSIS OF Current Active Problems Hydronephrosis (Acute) Hydronephrosis of right kidney (Acute) Rt flank pain (Acute) UTI (urinary tract infection) (Acute) Condition: Stable - Instructions Diet, Activity, Other Instructions: F/U with Urology + [employer] outpatient Referrals: Jani Sevilla S.A. [Other Staff,non-medical] - Vira Brian MD [Staff Physician] - Disposition: HOME - Home Medications Comprehensive Discharge Medication List: Ambulatory Orders Ferrous Sulfate 325 mg PO ASDIR 10/26/17 [place] Carbonate [Eskalith -] 600 mg PO BID 10/26/17 Prescription Drug Monitoring Program (I-STOP) results: I-STOP reviewed and no issues identified
[2020-07-25 14:12] VITALS: BP 128/77; PULSE 69; TEMP 98.3
--- NOTE | 2020-07-25 14:32 | PN ---
Progress Note, Physician Chief Complaint: C/O L FLANK PAIN NO C/O DYSURIA NO C/O F/C TOLERATING LEVAQUIN CULTURES NEGATIVE - Current Medication List Current Medications: Active Medications Acetaminophen (Tylenol -) 1,000 mg PO Q6H PRN PRN Reason: PAIN LEVEL 1 - 3 Cyanocobalamin (Vitamin B12 -) 100 mcg PO DAILY [facility] Last Admin: 07/25/20 11:29 Dose: 100 mcg Documented by: Diphenhydramine HCl (Benadryl Injection -) 25 mg IVPUSH Q6H PRN PRN Reason: FOR ITCHING Last Admin: 07/24/20 22:35 Dose: 25 mg Documented by: Docusate Sodium (Colace -) 100 mg PO BID [facility] Last Admin: 07/25/20 11:28 Dose: 100 mg Documented by: Ferrous Sulfate (Feosol -) 325 mg PO DAILY [facility] Last Admin: 07/25/20 11:28 Dose: 325 mg Documented by: Hydromorphone HCl (Dilaudid Vial -) 2 mg IVPB Q6H PRN PRN Reason: PAIN LEVEL 6-10 Last Admin: 07/24/20 22:32 Dose: 2 mg Documented by: Sodium Chloride (Normal Saline -) 1,000 mls @ 150 mls/hr IV ASDIR [facility] Last Admin: 07/25/20 11:32 Dose: Not Given Documented by: Levofloxacin (Levaquin 500 Mg Premixed Ivpb -) 500 mg in 100 mls @ 100 mls/hr IVPB DAILY [facility]; Protocol Last Admin: 07/25/20 11:48 Dose: Not Given Documented by: Nicotine (Nicoderm Patch -) 7 mg TD DAILY [facility] Last Admin: 07/25/20 11:31 Dose: Not Given Documented by: Non-Formulary Medication ([place] Carbonate [Eskalith -]) 600 mg PO BID [facility] Ondansetron HCl (Zofran Injection) 4 mg IVPUSH Q6H PRN PRN Reason: NAUSEA AND/OR VOMITING Ondansetron HCl (Zofran Injection) 8 mg IVPB Q8H PRN PRN Reason: NAUSEA Oxycodone HCl (Roxicodone -) 5 mg PO Q4H PRN PRN Reason: PAIN LEVEL 7 - 10 Last Admin: 07/25/20 12:21 Dose: 5 mg Documented by: Tamsulosin HCl (Flomax -) 0.8 mg PO DAILY@0830 [facility] Last Admin: 07/25/20 11:28 Dose: 0.8 mg Documented by: Tramadol HCl (Ultram -) 50 mg PO Q6H PRN PRN Reason: PAIN LEVEL 4 - 6 Last Admin: 07/25/20 13:24 Dose: 50 mg Documented by: Zinc Acetate/Diphenhydramine (Benadryl 2% Cream) 1 applic TP BID [facility] Last Admin: 07/25/20 11:31 Dose: 1 applic Documented by: - Objective Vital Signs: Vital Signs Temperature 98.3 F 07/25/20 14:00 Pulse Rate 69 07/25/20 14:00 Respiratory Rate 18 07/25/20 14:00 Blood Pressure 128/77 07/25/20 14:00 O2 Sat by Pulse Oximetry (%) 98 07/25/20 14:00 Constitutional: Yes: No Distress Eyes: Yes: Conjunctiva Clear Cardiovascular: Yes: Regular Rate and Rhythm Respiratory: Yes: CTA Bilaterally Gastrointestinal: Yes: Normal Bowel Sounds, Soft Genitourinary: Yes: CVA Tenderness - Left Peripheral Pulses WNL: No Labs: CBC, BMP 07/25/20 07:38 07/25/20 07:38 INR, PTT INR 1.07 (0.83-1.09) 07/21/20 19:00 Assessment/Plan S/P CYSTO/ STENT NEPHROLITHIASIS HEMATURIA PCN ALLERGY SUBSTITUTE PO LEVAQUIN OUTPATIENT F/U
[2020-07-25 19:06] LABS: PARATHYROID HORM INTACT 70 pg/mL (15-65)
--- NOTE | 2020-07-26 15:38 | PATH ---
Surgical Pathology Report Patient Name: CHIOMA VILLEGAS Med. Rec. #: [id number] /Age/Gender: 1975 (Age: 44) / F Account: [id number] Location: [address] [place] [address]/[facility] Taken: 07/23/2020 Received: 07/25/2020 Reported: 07/26/2020 Physicians: Mary Banks M.D. Specimen(s) Received A: BILATERAL URETERAL STONES B: BILATERAL URETERAL STENTS Clinical History Bilateral hydronephrosis Final Diagnosis A. URETERAL STONES, BILATERAL, STONE RETRIEVAL: URETEROLITHIASIS. MACROSCOPIC DIAGNOSIS. B. URETERAL STENT, BILATERAL, EXCHANGE: CONSISTENT WITH URETERAL STENTS (2). MACROSCOPIC DIAGNOSIS. Electronically Signed Shawna Riggins M.D. Gross Description A. Received fresh labeled "bilateral ureteral stones," is a 1.8 x 1.0 x 0.3 cm aggregate of multiple shrestha, irregular to fragmented calculi. The specimen is sent for chemical analysis. B. Received fresh labeled "bilateral ureteral stent," are 2 anguiano-blue, coiled portions of tubing, consistent with ureteral stents. The stents average 35 cm in length. No soft tissue is present. No sections are submitted, gross only. 07/25/2020 [facility]07/25/2020
[2020-08-10 13:10] LABS: CALCIUM CARBONATE 70; SIZE 4x4; WEIGHT 137
== END 2020-07-25 18:26 | disposition home or self-care (01) | DRG 443 ==
LOC: JER 17:20 → JERBED 18:50 → J5S 07-22 09:52
PROVIDERS: ADMIT Internal Medicine; ATTEND Family Medicine
PROC: 0TC68ZZ Extirpation of Matter from Right Ureter, Via Natural or Artificial Opening Endoscopic (ICD-10-PCS; 2020-07-23)
PROC: BT14ZZZ Fluoroscopy of Kidneys, Ureters and Bladder (ICD-10-PCS; 2020-07-23)
PROC: 0TP98DZ Removal of Intraluminal Device from Ureter, Via Natural or Artificial Opening Endoscopic (ICD-10-PCS; 2020-07-23)
PROC: 0T788DZ Dilation of Bilateral Ureters with Intraluminal Device, Via Natural or Artificial Opening Endoscopic (ICD-10-PCS; 2020-07-23)
PROC: 0TP98DZ Removal of Intraluminal Device from Ureter, Via Natural or Artificial Opening Endoscopic (ICD-10-PCS; 2020-07-23)
PROC: 0TC78ZZ Extirpation of Matter from Left Ureter, Via Natural or Artificial Opening Endoscopic (ICD-10-PCS; principal; 2020-07-23 08:28)
DX: N13.6 Pyonephrosis (principal); Z88.0 Allergy status to penicillin; N17.9 Acute kidney failure, unspecified; E88.09 Other disorders of plasma-protein metabolism, not elsewhere classified; R16.2 Hepatomegaly with splenomegaly, not elsewhere classified; E46 Unspecified protein-calorie malnutrition; L29.9 Pruritus, unspecified; Z68.26 Body mass index [BMI] 26.0-26.9, adult; D50.8 Other iron deficiency anemias; F17.210 Nicotine dependence, cigarettes, uncomplicated; R31.9 Hematuria, unspecified
CPT/HCPCS: 36415; 74176-TC; 76000-TC-FY; 76775-TC; 76856-TC; 80053; 81003; 82360; 82607; 82728; 83540; 83550; 83735; 83970; 84100; 84439; 84443; 84466; 84702; 84703; 85025; 85610; 85730; 86850; 86900; 86901; 87086; 88300-TC; 93005; 93010; 94760; 99285-25; J0131; U0003

== ENCOUNTER 2020-07-27 00:04 | Inpatient (IN) | payer BC, OTHER ==
[2020-07-27 00:24] VITALS: BMI 26.6
[2020-07-27] MEDS ORDERED: ACETAMINOPHEN 1000 MG/100 ML VIAL (NON FORMULARY) IVPB ONE (02:39)
[2020-07-27] MEDS ORDERED: ONDANSETRON 4 MG/2 ML VIAL IVPUSH ONE (02:39)
[2020-07-27] MEDS ORDERED: ACETAMINOPHEN INJECTION 100 ML IVPB ONE (02:54)
[2020-07-27] MEDS ORDERED: KETOROLAC TROMETHAMINE 30 MG/1 ML VIAL IM ONE (03:02)
[2020-07-27] MEDS ORDERED: KETOROLAC TROMETHAMINE 30 MG/1 ML VIAL ONE (03:09)
[2020-07-27 03:15] LABS: BASO % 0.7 % (0-2.0); EOS % 3.2 % (0-4.5); HEMATOCRIT 31.2 % (32.4-45.2); HEMOGLOBIN 10.1 GM/dL (10.7-15.3); LYMPH % 19.2 % (8-40); MCH 24.8 pg (25.7-33.7); MCHC 32.5 g/dl (32.0-36.0); MEAN CELL VOLUME 76.4 fl (80-96); MONO % 4.9 % (3.8-10.2); RBC 4.09 M/mm3 (3.60-5.2); RDW 16.5 % (11.6-15.6); WHITE BLOOD COUNT 10.1 K/mm3 (4.0-10.0)
[2020-07-27 03:21] LABS: EPI CELLS 3 /uL (0-25.1); HYALINE CASTS 1 /uL (0-3.1); URINE APPEARANCE CLOUDY; URINE BACTERIA 205 /uL (0-1359); URINE BILIRUBIN NEGATIVE (NEGATIVE); URINE COLOR YELLOW; URINE GLUCOSE (UA) NEGATIVE (NEGATIVE); URINE KETONE NEGATIVE (NEGATIVE); URINE LEUK ESTERASE 3+ (NEGATIVE); URINE NITRITE NEGATIVE (NEGATIVE); URINE PROTEIN 3+ (NEGATIVE); URINE UROBILINOGEN 0.2 mg/dL (0.2-1.0); URINE WBC 1426 /uL (0-25.8)
[2020-07-27 03:42] LABS: ALBUMIN 3.3 g/dl (3.4-5.0); BILIRUBIN,TOTAL 0.2 mg/dL (0.2-1); BLOOD UREA NITROGEN 14.1 mg/dL (7-18); CALCIUM 9.7 mg/dL (8.5-10.1); TOT PROT 8.3 g/dl (6.4-8.2)
[2020-07-27 06:44] LABS: ANISOCYTOSIS 1+; MACROCYTOSIS 0; PLATELET ESTIMATE NORMAL
[2020-07-27 06:48] LABS: MEAN PLT VOLUME 7.7 fl (7.5-11.1); PLATELET COUNT 345 K/MM3 (134-434)
[2020-07-27 08:05] LABS: YEAST FEW OBSERVED (NEGATIVE)
[2020-07-27] MEDS: DEXTROSE 5%-0.45% SALINE 1,000 ML IV SCH (08:26)
[2020-07-27] MEDS ORDERED: HYDROmorphone HCl 2 MG/ML VIAL IVPUSH PRN (09:46)
[2020-07-27] MEDS ORDERED: HYDROmorphone HCl 2 MG/ML VIAL ONE (10:07)
[2020-07-27] MEDS ORDERED: HEPARIN NA (PORCINE) 5,000 UNITS/ML 1ML VIAL ONE (10:07)
[2020-07-27] MEDS: HEPARIN NA (PORCINE) 5,000 UNITS/ML 1ML VIAL SQ SCH ×2 (10:11→21:34)
[2020-07-27] MEDS ORDERED: PNEUMOC 13-VAL CONJ-DIP CRM/PF 0.5 ML DISP.SYRIN IM ONE (15:00)
[2020-07-27] MEDS ORDERED: ACETAMINOPHEN 325 MG TABLET (FP) PO PRN (16:26)
[2020-07-27] MEDS ORDERED: POLYETHYLENE GLYCOL 3350 119 GM BTL PO PRN (17:39)
[2020-07-27] MEDS: KETOROLAC TROMETHAMINE 30 MG/1 ML VIAL IVPUSH PRN (23:18)
[2020-07-28 08:13] LABS: BASO % 1.1 % (0-2.0); EOS % 6.2 % (0-4.5); HEMATOCRIT 26.7 % (32.4-45.2); HEMOGLOBIN 8.7 GM/dL (10.7-15.3); LYMPH % 32.8 % (8-40); MCH 24.3 pg (25.7-33.7); MCHC 32.6 g/dl (32.0-36.0); MEAN CELL VOLUME 74.7 fl (80-96); MEAN PLT VOLUME 6.7 fl (7.5-11.1); MONO % 8.3 % (3.8-10.2); NEUT % 51.6 % (42.8-82.8); PLATELET COUNT 280 K/MM3 (134-434); RBC 3.58 M/mm3 (3.60-5.2); RDW 16.1 % (11.6-15.6); WHITE BLOOD COUNT 4.6 K/mm3 (4.0-10.0)
[2020-07-28 08:45] LABS: POTASSIUM 3.9 mmol/L (3.5-5.1)
[2020-07-28 09:02] LABS: ALBUMIN 2.4 g/dl (3.4-5.0); BILIRUBIN,TOTAL 0.2 mg/dL (0.2-1); BLOOD UREA NITROGEN 14.4 mg/dL (7-18); CALCIUM 8.6 mg/dL (8.5-10.1); CREATININE 0.8 mg/dL (0.55-1.3); TOT PROT 6.3 g/dl (6.4-8.2)
[2020-07-28] MEDS: POLYETHYLENE GLYCOL 3350 119 GM BTL PO SCH (09:51)
[2020-07-28] MEDS: HEPARIN NA (PORCINE) 5,000 UNITS/ML 1ML VIAL SQ SCH ×2 (09:51→22:25)
[2020-07-28] MEDS: KETOROLAC TROMETHAMINE 30 MG/1 ML VIAL IVPUSH PRN ×2 (09:51→16:50)
[2020-07-28] MEDS ORDERED: PNEUMOCOCCAL 23 VACCINE 0.5 ML VIAL IM ONE (11:00)
[2020-07-28] MEDS: DEXTROSE 5%-0.45% SALINE 1,000 ML IV SCH (13:25)
[2020-07-29] MEDS: KETOROLAC TROMETHAMINE 30 MG/1 ML VIAL IVPUSH PRN (05:55)
[2020-07-29] MEDS: POLYETHYLENE GLYCOL 3350 119 GM BTL PO SCH (09:41)
[2020-07-29] MEDS: HEPARIN NA (PORCINE) 5,000 UNITS/ML 1ML VIAL SQ SCH (09:41)
[2020-07-29 13:45] VITALS: BP 113/67; PULSE 66; TEMP 99
== END 2020-07-29 17:45 | disposition home or self-care (01) | DRG 465 ==
LOC: JER 00:04 → JERBED 04:12 → J7W 08:30 → JERBED 08:32 → J8W 10:30
PROVIDERS: ADMIT Family Medicine; ATTEND Family Medicine
DX: N13.30 Unspecified hydronephrosis (principal); K59.00 Constipation, unspecified; J45.909 Unspecified asthma, uncomplicated; F41.9 Anxiety disorder, unspecified; Z88.0 Allergy status to penicillin; J98.11 Atelectasis; N83.202 Unspecified ovarian cyst, left side; R31.9 Hematuria, unspecified; D50.9 Iron deficiency anemia, unspecified; F31.9 Bipolar disorder, unspecified; N20.0 Calculus of kidney
CPT/HCPCS: 36415; 74176-TC; 78708-TC; 80053; 81003; 83690; 84703; 85025; 87086; 90732; 93005; 93010; 99285-25; A9562; G0009; J1644; U0003

== ENCOUNTER 2022-08-05 10:28 | Emergency (ER) | payer BC, OTHER ==
[2022-08-05 10:48] VITALS: BP 123/67; PULSE 64; RESP 16; TEMP 98; BMI 29.1
[2022-08-05] MEDS ORDERED: SODIUM CHLORIDE 1,000 ML IV STA (11:11)
[2022-08-05] MEDS ORDERED: ONDANSETRON 4 MG/2 ML VIAL IVPUSH ONE (11:11)
[2022-08-05 13:44] LABS: EOS % 3.1 % (0-4.5); HEMATOCRIT 39.7 % (32.4-45.2); HEMOGLOBIN 13.2 GM/dL (10.7-15.3); LYMPH % 27.4 % (8-40); MCH 28.5 pg (25.7-33.7); MCHC 33.3 g/dl (32.0-36.0); MEAN CELL VOLUME 85.7 fl (80-96); MONO % 7.1 % (3.8-10.2); NEUT % 61.4 % (42.8-82.8); RBC 4.63 M/mm3 (3.60-5.2); RDW 15.3 % (11.6-15.6); WHITE BLOOD COUNT 5.8 K/mm3 (4.0-10.0)
[2022-08-05 13:54] LABS: ALBUMIN 3.6 g/dl (3.4-5.0); BLOOD UREA NITROGEN 18.1 mg/dL (7-18); CALCIUM 8.7 mg/dL (8.5-10.1)
[2022-08-05 13:57] LABS: CREATININE 0.8 mg/dL (0.55-1.3)
[2022-08-05 13:58] LABS: BILIRUBIN,TOTAL 0.4 mg/dL (0.2-1)
[2022-08-05] MEDS ORDERED: KETOROLAC TROMETHAMINE 30 MG/1 ML VIAL IVPUSH ONE (14:06)
[2022-08-05] MEDS ORDERED: KETOROLAC TROMETHAMINE 30 MG/1 ML VIAL ONE (14:07)
[2022-08-05] MEDS ORDERED: ACETAMINOPHEN 1000 MG/100 ML BAG IVPB ONE (15:12)
[2022-08-05] MEDS ORDERED: DEXAMETHASONE SOD PHOSPHATE 10 MG/1 ML VIAL IVPUSH ONE (15:12)
[2022-08-05] MEDS ORDERED: ACETAMINOPHEN INJECTION 100 ML IVPB ONE (15:47)
[2022-08-05] MEDS ORDERED: DEXAMETHASONE SOD PHOSPHATE 10 MG/1 ML VIAL ONE (15:47)
[2022-08-05 16:41] LABS: EPI CELLS >36 /uL (0-25.1); HYALINE CASTS 2 /uL (0-3.1); URINE APPEARANCE CLOUDY; URINE BACTERIA >9,000 /uL (0-1359); URINE BILIRUBIN NEGATIVE (NEGATIVE); URINE COLOR YELLOW; URINE GLUCOSE (UA) NEGATIVE (NEGATIVE); URINE KETONE NEGATIVE (NEGATIVE); URINE LEUK ESTERASE 3+ (NEGATIVE); URINE NITRITE POSITIVE (NEGATIVE); URINE PROTEIN NEGATIVE (NEGATIVE); URINE RBC 19 /uL (0-23.9); URINE UROBILINOGEN 0.2 mg/dL (0.2-1.0); URINE WBC 205 /uL (0-25.8)
[2022-08-05 16:59] LABS: HCG,QUALITATIVE URINE Negative
[2022-08-05] MEDS ORDERED: SULFAMETHOXAZOLE/TRIMETHOPRIM 800MG/160MG D.S. TABLET PO ONE (17:02)
[2022-08-05] MEDS ORDERED: SULFAMETHOXAZOLE/TRIMETHOPRIM 800MG/160MG D.S. TABLET ONE (17:13)
== END 2022-08-05 17:34 | disposition home or self-care (01) ==
LOC: JER 10:28
PROC: 3E033NZ Introduction of Analgesics, Hypnotics, Sedatives into Peripheral Vein, Percutaneous Approach (ICD-10-PCS; principal; 2022-08-05)
PROC: 3E0337Z Introduction of Electrolytic and Water Balance Substance into Peripheral Vein, Percutaneous Approach (ICD-10-PCS; 2022-08-05)
PROC: 3E0333Z Introduction of Anti-inflammatory into Peripheral Vein, Percutaneous Approach (ICD-10-PCS; 2022-08-05)
PROC: 3E033GC Introduction of Other Therapeutic Substance into Peripheral Vein, Percutaneous Approach (ICD-10-PCS; 2022-08-05)
PROC: 3E033GC Introduction of Other Therapeutic Substance into Peripheral Vein, Percutaneous Approach (ICD-10-PCS; 2022-08-05)
DX: N10 Acute pyelonephritis (principal)
CPT/HCPCS: 36415; 80053; 81003; 83690; 84703; 85025; 87086; 87186; 99284-25; J1100

== ENCOUNTER 2022-10-09 20:29 | Inpatient (IN) | payer OTHER ==
[2022-10-09 20:35] VITALS: BMI 28.0
[2022-10-09] MEDS ORDERED: ONDANSETRON 4 MG/2 ML VIAL IVPUSH ONE (20:52)
[2022-10-09] MEDS ORDERED: morphine CARPU-JECT 4 MG/1 ML DISP.SYRIN IVPUSH ONE ×2 (20:52→22:37)
[2022-10-09] MEDS ORDERED: SODIUM CHLORIDE 0.9% 500 ML INFUS.BAG IV ONE (20:52)
[2022-10-09 21:28] LABS: BASO % 0.8 % (0-2.0); EOS % 2.9 % (0-4.5); HEMATOCRIT 27.9 % (32.4-45.2); HEMOGLOBIN 9.2 GM/dL (10.7-15.3); LYMPH % 15.8 % (8-40); MCH 27.2 pg (25.7-33.7); MEAN CELL VOLUME 82.5 fl (80-96); MEAN PLT VOLUME 6.9 fl (7.5-11.1); MONO % 10.8 % (3.8-10.2); NEUT % 69.7 % (42.8-82.8); PLATELET COUNT 295 10^3/uL (134-434); RBC 3.38 M/mm3 (3.60-5.2); RDW 16.6 % (11.6-15.6); WHITE BLOOD COUNT 5.9 K/mm3 (4.0-10.0)
[2022-10-09] MEDS ORDERED: ONDANSETRON 4 MG/2 ML VIAL ONE (21:44)
[2022-10-09] MEDS ORDERED: morphine SULFATE 4 MG/ML VIAL ONE ×2 (21:44→22:50)
[2022-10-09 21:54] LABS: CHLORIDE 110 mmol/L (98-107); SODIUM 142 mmol/L (136-145)
[2022-10-09 21:56] LABS: CALCIUM 8.9 mg/dL (8.5-10.1)
[2022-10-09 21:57] LABS: ALBUMIN 2.9 g/dl (3.4-5.0); ANION GAP 7 MMOL/L (8-16); BLOOD UREA NITROGEN 19.8 mg/dL (7-18); CO2 26 mmol/L (21-32); GLUCOSE,RANDOM 121 mg/dL (74-106)
[2022-10-09 22:00] LABS: SGOT/AST 24 U/L (15-37); SGPT/ALT 22 U/L (13-61)
[2022-10-09 22:01] LABS: BILIRUBIN,TOTAL 0.3 mg/dL (0.2-1)
[2022-10-09 22:03] LABS: ALK PHOS 89 U/L (45-117)
[2022-10-09 23:11] LABS: EPI CELLS 28 /uL (0-25.1); HYALINE CASTS 2 /uL (0-3.1); PH,URINE 5.5 (5.0-8.0); URINE APPEARANCE TURBID; URINE BACTERIA 2823 /uL (0-1359); URINE BILIRUBIN NEGATIVE (NEGATIVE); URINE COLOR YELLOW; URINE GLUCOSE (UA) NEGATIVE (NEGATIVE); URINE KETONE NEGATIVE (NEGATIVE); URINE LEUK ESTERASE 3+ (NEGATIVE); URINE NITRITE POSITIVE (NEGATIVE); URINE PROTEIN 2+ (NEGATIVE); URINE RBC 117 /uL (0-23.9); URINE UROBILINOGEN 0.2 mg/dL (0.2-1.0); URINE WBC 10809 /uL (0-25.8)
[2022-10-09] MEDS ORDERED: CEFTRIAXONE 1,000 MG in DEXTROSE 5%-WATER - 50 ML IVPB ONE (23:45)
[2022-10-09] MEDS ORDERED: CEFTRIAXONE 1 GM/50 ML BAG ONE (23:52)
[2022-10-10] MEDS ORDERED: ACETAMINOPHEN 1000 MG/100 ML BAG IVPB ONE (04:21)
[2022-10-10] MEDS ORDERED: ACETAMINOPHEN INJECTION 100 ML IVPB ONE (04:23)
[2022-10-10] MEDS ORDERED: KETOROLAC TROMETHAMINE 15 MG/ML VIAL ONE (05:56)
[2022-10-10] MEDS: KETOROLAC TROMETHAMINE 15 MG/ML VIAL IVPUSH PRN ×2 (05:56→18:04)
[2022-10-10] MEDS ORDERED: POLYETHYLENE GLYCOL (HEALTHYLAX) 3350 17 GM PACKET PO PRN (06:00)
[2022-10-10] MEDS ORDERED: SENNOSIDES 8.6MG TABLET (FP) PO PRN (06:00)
[2022-10-10] MEDS ORDERED: SODIUM CHLORIDE 1,000 ML IV STA (06:01)
[2022-10-10] MEDS ORDERED: SODIUM CHLORIDE 1,000 ML IV SCH (06:15)
[2022-10-10] MEDS ORDERED: TAMSULOSIN HCL 0.4 MG CAP ONE (07:32)
[2022-10-10] MEDS ORDERED: ENOXAPARIN NA (PORCINE) 40 MG/0.4 ML DISP.SYRIN SQ ONE (07:32)
[2022-10-10] MEDS: TAMSULOSIN HCL 0.4 MG CAP PO SCH (07:55)
[2022-10-10] MEDS: SODIUM CHLORIDE 1,000 ML IV SCH (08:41)
[2022-10-10 08:58] LABS: BASO % 1.1 % (0-2.0); EOS % 5.4 % (0-4.5); HEMATOCRIT 26.7 % (32.4-45.2); HEMOGLOBIN 8.6 GM/dL (10.7-15.3); LYMPH % 18.7 % (8-40); MCH 26.6 pg (25.7-33.7); MCHC 32.1 g/dl (32.0-36.0); MEAN CELL VOLUME 82.8 fl (80-96); MEAN PLT VOLUME 7.2 fl (7.5-11.1); MONO % 11.9 % (3.8-10.2); NEUT % 62.9 % (42.8-82.8); PLATELET COUNT 263 10^3/uL (134-434); RBC 3.23 M/mm3 (3.60-5.2); RDW 16.3 % (11.6-15.6); WHITE BLOOD COUNT 4.2 K/mm3 (4.0-10.0)
[2022-10-10 09:27] LABS: ALBUMIN 2.4 g/dl (3.4-5.0); BLOOD UREA NITROGEN 18.7 mg/dL (7-18); MAGNESIUM 2.1 mg/dL (1.8-2.4)
[2022-10-10 09:30] LABS: CREATININE 0.8 mg/dL (0.55-1.3); PHOSPHOROUS 3.1 mg/dL (2.5-4.9)
[2022-10-10 09:32] LABS: BILIRUBIN,TOTAL 0.5 mg/dL (0.2-1)
[2022-10-10] MEDS: CEFTRIAXONE 1 GM in DEXTROSE 5%-WATER - 50 ML IVPB SCH (09:46)
[2022-10-10] MEDS: ONDANSETRON 4 MG/2 ML VIAL IVPUSH PRN (09:54)
[2022-10-10] MEDS ORDERED: ENOXAPARIN NA (PORCINE) 40 MG/0.4 ML DISP.SYRIN SQ SCH (10:00)
[2022-10-10 20:06] LABS: HEMATOCRIT 26.7 % (32.4-45.2); HEMOGLOBIN 8.6 GM/dL (10.7-15.3); MCH 26.8 pg (25.7-33.7); MCHC 32.3 g/dl (32.0-36.0); MEAN CELL VOLUME 82.9 fl (80-96); MEAN PLT VOLUME 6.8 fl (7.5-11.1); PLATELET COUNT 271 10^3/uL (134-434); RBC 3.22 M/mm3 (3.60-5.2); RDW 16.5 % (11.6-15.6); WHITE BLOOD COUNT 4.5 K/mm3 (4.0-10.0)
[2022-10-11] MEDS ORDERED: CEFTRIAXONE 1 GM in DEXTROSE 5%-WATER - 50 ML IVPB ONE
[2022-10-11] MEDS: ONDANSETRON 4 MG/2 ML VIAL IVPUSH PRN (04:10)
[2022-10-11] MEDS: SODIUM CHLORIDE 1,000 ML IV SCH ×2 (06:20→13:41)
[2022-10-11] MEDS: TAMSULOSIN HCL 0.4 MG CAP PO SCH (08:38)
[2022-10-11] MEDS: CEFTRIAXONE 1 GM in DEXTROSE 5%-WATER - 50 ML IVPB SCH (09:05)
[2022-10-11 11:03] LABS: HEMATOCRIT 27.5 % (32.4-45.2); HEMOGLOBIN 9.2 GM/dL (10.7-15.3); MCH 27.4 pg (25.7-33.7); MCHC 33.3 g/dl (32.0-36.0); MEAN CELL VOLUME 82.3 fl (80-96); MEAN PLT VOLUME 7.2 fl (7.5-11.1); PLATELET COUNT 270 10^3/uL (134-434); RBC 3.34 M/mm3 (3.60-5.2); RDW 16.5 % (11.6-15.6); WHITE BLOOD COUNT 5.3 K/mm3 (4.0-10.0)
[2022-10-11 11:23] LABS: CALCIUM 8.4 mg/dL (8.5-10.1)
[2022-10-11 11:24] LABS: ALBUMIN 2.6 g/dl (3.4-5.0); BLOOD UREA NITROGEN 10.6 mg/dL (7-18); MAGNESIUM 1.8 mg/dL (1.8-2.4)
[2022-10-11 11:27] LABS: CREATININE 0.9 mg/dL (0.55-1.3); PHOSPHOROUS 2.6 mg/dL (2.5-4.9)
[2022-10-11 11:28] LABS: BILIRUBIN,TOTAL 0.4 mg/dL (0.2-1); TOT PROT 6.3 g/dl (6.4-8.2)
[2022-10-11] MEDS ORDERED: ACETAMINOPHEN 1000 MG/100 ML BAG IVPB ONE (15:22)
[2022-10-11] MEDS: KETOROLAC TROMETHAMINE 15 MG/ML VIAL IVPUSH PRN (18:50)
[2022-10-12] MEDS: KETOROLAC TROMETHAMINE 15 MG/ML VIAL IVPUSH PRN (06:51)
[2022-10-12] MEDS: ONDANSETRON 4 MG/2 ML VIAL IVPUSH PRN (06:51)
[2022-10-12] MEDS: TAMSULOSIN HCL 0.4 MG CAP PO SCH (08:33)
[2022-10-12 09:51] LABS: HEMATOCRIT 26.3 % (32.4-45.2); HEMOGLOBIN 8.5 GM/dL (10.7-15.3); MCH 26.4 pg (25.7-33.7); MCHC 32.3 g/dl (32.0-36.0); MEAN CELL VOLUME 81.9 fl (80-96); PLATELET COUNT 263 10^3/uL (134-434); RBC 3.21 M/mm3 (3.60-5.2); RDW 16.3 % (11.6-15.6)
[2022-10-12] MEDS: CEFTRIAXONE 1 GM in DEXTROSE 5%-WATER - 50 ML IVPB SCH (09:58)
[2022-10-12] MEDS ORDERED: morphine CARPU-JECT 2 MG/1 ML DISP.SYRIN IVPUSH PRN (10:52)
[2022-10-12 11:06] LABS: CALCIUM 8.2 mg/dL (8.5-10.1)
[2022-10-12 11:07] LABS: ALBUMIN 2.5 g/dl (3.4-5.0); BLOOD UREA NITROGEN 11.4 mg/dL (7-18)
[2022-10-12 11:10] LABS: CREATININE 0.9 mg/dL (0.55-1.3); PHOSPHOROUS 3.1 mg/dL (2.5-4.9)
[2022-10-12 11:11] LABS: BILIRUBIN,TOTAL 0.5 mg/dL (0.2-1); TOT PROT 6.3 g/dl (6.4-8.2)
[2022-10-12] MEDS ORDERED: HYDROmorphone HCl 2 MG/ML VIAL IVPB PRN (12:02)
[2022-10-12] MEDS ORDERED: DEXAMETHASONE SOD PHOSPHATE 4 MG/1 ML VIAL ONE (15:08)
[2022-10-12] MEDS ORDERED: FENTANYL CITRATE/PF 50 MCG/ML VIAL ONE ×2 (15:08→18:14)
[2022-10-12] MEDS ORDERED: ONDANSETRON 4 MG/2 ML VIAL ONE (15:08)
[2022-10-12] MEDS ORDERED: LIDOCAINE HCL/PF 2% SDV 5ML VIAL ONE (15:08)
[2022-10-12] MEDS ORDERED: MIDAZOLAM HCL 2 MG/2 ML SINGLE DOSE VIAL ONE (15:09)
[2022-10-12] MEDS ORDERED: PROPOFOL 20 ML ONE (15:09)
[2022-10-12] MEDS ORDERED: CLINDAMYCIN 600 MG PREMIX BAG IVPB ONE (16:07)
[2022-10-12] MEDS ORDERED: CLINDAMYCIN 600MG PREMIX IVPB 600 MG/50 ML BAG IVPB ONE (16:09)
[2022-10-12] MEDS ORDERED: IOHEXOL 180 MG/1 ML ML IJ ONE (16:10)
[2022-10-12] MEDS ORDERED: IRON SUCROSE INJECTION 100 MG in SODIUM CHLORIDE 95 ML IVPB ONE (16:51)
[2022-10-12] MEDS ORDERED: SENNOSIDES 8.6MG TABLET (FP) PO PRN (17:13)
[2022-10-12] MEDS ORDERED: POLYETHYLENE GLYCOL (HEALTHYLAX) 3350 17 GM PACKET PO PRN (17:13)
[2022-10-12] MEDS ORDERED: ONDANSETRON 4 MG/2 ML VIAL IVPUSH PRN ×2 (17:13→17:54)
[2022-10-12] MEDS ORDERED: FENTANYL CITRATE/PF 50 MCG/ML VIAL IVPUSH PRN (17:54)
[2022-10-12] MEDS ORDERED: oxyCODONE HCL 5 MG TABLET PO ONE (17:54)
[2022-10-12 22:11] LABS: HEMATOCRIT 27.4 % (32.4-45.2); HEMOGLOBIN 9.3 GM/dL (10.7-15.3); MCH 27.6 pg (25.7-33.7); MEAN CELL VOLUME 81.1 fl (80-96); MEAN PLT VOLUME 7.2 fl (7.5-11.1); PLATELET COUNT 265 10^3/uL (134-434); RBC 3.38 M/mm3 (3.60-5.2); WHITE BLOOD COUNT 6.7 K/mm3 (4.0-10.0)
[2022-10-12] MEDS: HYDROmorphone HCl 2 MG/ML VIAL IVPB PRN (22:46)
[2022-10-13] MEDS: HYDROmorphone HCl 2 MG/ML VIAL IVPB PRN ×2 (03:35→11:26)
[2022-10-13] MEDS ORDERED: TAMSULOSIN HCL 0.4 MG CAP PO SCH (08:30)
[2022-10-13 09:49] LABS: HEMATOCRIT 26.8 % (32.4-45.2); HEMOGLOBIN 8.8 GM/dL (10.7-15.3); MCH 26.6 pg (25.7-33.7); MCHC 32.7 g/dl (32.0-36.0); MEAN CELL VOLUME 81.2 fl (80-96); MEAN PLT VOLUME 7.3 fl (7.5-11.1); PLATELET COUNT 285 10^3/uL (134-434); RBC 3.29 M/mm3 (3.60-5.2); RDW 16.3 % (11.6-15.6); WHITE BLOOD COUNT 7.3 K/mm3 (4.0-10.0)
[2022-10-13 10:00] LABS: RETICULOCYTES 2.66 % (0.5-1.5)
[2022-10-13] MEDS ORDERED: CEFTRIAXONE 1 GM in DEXTROSE 5%-WATER - 50 ML IVPB SCH (10:00)
[2022-10-13 10:13] LABS: ALBUMIN 2.5 g/dl (3.4-5.0); BLOOD UREA NITROGEN 14.9 mg/dL (7-18); CALCIUM 8.4 mg/dL (8.5-10.1)
[2022-10-13 10:17] LABS: CREATININE 0.8 mg/dL (0.55-1.3); PHOSPHOROUS 3.4 mg/dL (2.5-4.9)
[2022-10-13 10:19] LABS: BILIRUBIN,TOTAL 0.4 mg/dL (0.2-1); TOT PROT 6.5 g/dl (6.4-8.2)
[2022-10-13] MEDS ORDERED: traMADol HCL 50 MG TABLET PO PRN (13:10)
[2022-10-13 17:11] LABS: HEMOGLOBIN 8.9 GM/dL (10.7-15.3); MCH 27.5 pg (25.7-33.7); MCHC 34.1 g/dl (32.0-36.0); MEAN CELL VOLUME 80.8 fl (80-96); MEAN PLT VOLUME 6.9 fl (7.5-11.1); PLATELET COUNT 264 10^3/uL (134-434); RBC 3.22 M/mm3 (3.60-5.2); RDW 16.1 % (11.6-15.6); WHITE BLOOD COUNT 6.2 K/mm3 (4.0-10.0)
[2022-10-13 18:51] VITALS: BP 120/74; PULSE 80; RESP 18; TEMP 98
== END 2022-10-13 18:54 | disposition home or self-care (01) | DRG 465 ==
LOC: JER 20:29 → JERBED 23:45 → J6S 10-10 09:00
PROVIDERS: ADMIT Family Medicine; ATTEND Internal Medicine
PROC: 0T9680Z Drainage of Right Ureter with Drainage Device, Via Natural or Artificial Opening Endoscopic (ICD-10-PCS; principal; 2022-10-11)
PROC: BT1DYZZ Fluoroscopy of Right Kidney, Ureter and Bladder using Other Contrast (ICD-10-PCS; 2022-10-11)
DX: N13.2 Hydronephrosis with renal and ureteral calculous obstruction (principal); S37.011A Minor contusion of right kidney, initial encounter; D64.9 Anemia, unspecified; J45.909 Unspecified asthma, uncomplicated; E86.0 Dehydration; X58.XXXA Exposure to other specified factors, initial encounter; Y93.9 Activity, unspecified; Y92.89 Other specified places as the place of occurrence of the external cause; Y99.9 Unspecified external cause status
CPT/HCPCS: 0241U-QW; 36415; 74018-TC-FY; 74176-TC; 76775-TC; 80053; 81003; 82607; 82728; 82746; 83540; 83550; 83735; 84100; 84702; 85025; 85027; 85045; 86850; 86900; 86901; 87040; 87086; 87186; 93005; 93010; 94760; 99285-25; C2617; J1756

== ENCOUNTER 2022-10-20 11:52 | Emergency (ER) | payer OTHER ==
[2022-10-20 12:05] VITALS: BP 130/77; PULSE 104; RESP 16; TEMP 98.9; BMI 28.3
[2022-10-20 15:53] LABS: EPI CELLS >36 /uL (0-25.1); HYALINE CASTS 5 /uL (0-3.1); PH,URINE 6.5 (5.0-8.0); URINE APPEARANCE CLEAR; URINE BACTERIA 52 /uL (0-1359); URINE BILIRUBIN NEGATIVE (NEGATIVE); URINE COLOR YELLOW; URINE GLUCOSE (UA) NEGATIVE (NEGATIVE); URINE KETONE NEGATIVE (NEGATIVE); URINE LEUK ESTERASE 2+ (NEGATIVE); URINE NITRITE NEGATIVE (NEGATIVE); URINE PROTEIN 1+ (NEGATIVE); URINE RBC 92 /uL (0-23.9); URINE UROBILINOGEN 0.2 mg/dL (0.2-1.0); URINE WBC 180 /uL (0-25.8)
[2022-10-20] MEDS ORDERED: KETOROLAC TROMETHAMINE 15 MG/ML VIAL IVPUSH ONE (16:02)
[2022-10-20] MEDS ORDERED: KETOROLAC TROMETHAMINE 15 MG/ML VIAL ONE (16:02)
[2022-10-20] MEDS: KETOROLAC TROMETHAMINE 10 MG TABLET PO ONE ×2 (16:13→16:14)
[2022-10-20 16:19] LABS: HEMATOCRIT 29.5 % (32.4-45.2); HEMOGLOBIN 9.4 GM/dL (10.7-15.3); MCH 25.8 pg (25.7-33.7); MCHC 31.8 g/dl (32.0-36.0); MEAN CELL VOLUME 81.1 fl (80-96); MEAN PLT VOLUME 6.9 fl (7.5-11.1); PLATELET COUNT 242 10^3/uL (134-434); RBC 3.63 M/mm3 (3.60-5.2); WHITE BLOOD COUNT 4.7 K/mm3 (4.0-10.0)
[2022-10-20 16:51] LABS: ALBUMIN 2.7 g/dl (3.4-5.0); BILIRUBIN,TOTAL 0.4 mg/dL (0.2-1); BLOOD UREA NITROGEN 13.6 mg/dL (7-18); CALCIUM 8.6 mg/dL (8.5-10.1); CREATININE 0.8 mg/dL (0.55-1.3); TOT PROT 7.2 g/dl (6.4-8.2)
[2022-10-20] MEDS ORDERED: ACETAMINOPHEN 1000 MG/100 ML BAG IVPB ONE (17:25)
[2022-10-20] MEDS ORDERED: morphine SULFATE 4 MG/ML VIAL IVPUSH ONE (19:22)
[2022-10-20] MEDS ORDERED: morphine SULFATE 4 MG/ML VIAL ONE (20:34)
[2022-10-20] MEDS ORDERED: ACETAMINOPHEN INJECTION 100 ML IVPB ONE (20:35)
== END 2022-10-21 02:04 | disposition home or self-care (01) ==
LOC: JER 11:52
PROC: 3E0333Z Introduction of Anti-inflammatory into Peripheral Vein, Percutaneous Approach (ICD-10-PCS; principal; 2022-10-20)
PROC: 3E0333Z Introduction of Anti-inflammatory into Peripheral Vein, Percutaneous Approach (ICD-10-PCS; 2022-10-20)
PROC: 3E033NZ Introduction of Analgesics, Hypnotics, Sedatives into Peripheral Vein, Percutaneous Approach (ICD-10-PCS; 2022-10-20)
DX: R10.9 Unspecified abdominal pain (principal)
CPT/HCPCS: 36415; 74177-TC; 76830-TC; 80053; 81003; 83690; 84703; 85027; 87086; 99285-25

== ENCOUNTER 2022-11-03 17:22 | Inpatient (IN) | payer OTHER ==
[2022-11-03] MEDS ORDERED: ONDANSETRON 4 MG/2 ML VIAL IVPUSH ONE (18:46)
[2022-11-03] MEDS ORDERED: ACETAMINOPHEN 1000 MG/100 ML BAG IVPB ONE (18:46)
[2022-11-03 18:59] LABS: EPI CELLS 20 /uL (0-25.1); HYALINE CASTS 2 /uL (0-3.1); URINE APPEARANCE TURBID; URINE BACTERIA >9,000 /uL (0-1359); URINE BILIRUBIN NEGATIVE (NEGATIVE); URINE COLOR YELLOW; URINE GLUCOSE (UA) NEGATIVE (NEGATIVE); URINE KETONE NEGATIVE (NEGATIVE); URINE LEUK ESTERASE 3+ (NEGATIVE); URINE NITRITE POSITIVE (NEGATIVE); URINE PROTEIN 2+ (NEGATIVE); URINE UROBILINOGEN 0.2 mg/dL (0.2-1.0); URINE WBC 7645 /uL (0-25.8)
[2022-11-03] MEDS ORDERED: ACETAMINOPHEN INJECTION 100 ML IVPB ONE (19:03)
[2022-11-03] MEDS ORDERED: ONDANSETRON 4 MG/2 ML VIAL ONE (19:03)
[2022-11-03 19:06] LABS: BASO % 0.6 % (0-2.0); EOS % 7.1 % (0-4.5); HEMATOCRIT 33.5 % (32.4-45.2); HEMOGLOBIN 10.6 GM/dL (10.7-15.3); LYMPH % 20.6 % (8-40); MCH 24.9 pg (25.7-33.7); MCHC 31.6 g/dl (32.0-36.0); MEAN CELL VOLUME 78.8 fl (80-96); MEAN PLT VOLUME 6.9 fl (7.5-11.1); MONO % 7.3 % (3.8-10.2); NEUT % 64.4 % (42.8-82.8); PLATELET COUNT 331 10^3/uL (134-434); RBC 4.25 M/mm3 (3.60-5.2); RDW 17.1 % (11.6-15.6); WHITE BLOOD COUNT 5.8 K/mm3 (4.0-10.0)
[2022-11-03 19:17] LABS: INR 1.21 (0.83-1.09); PROTHROMBIN TIME (PATIENT) 13.9 SEC (9.7-13.0)
[2022-11-03 19:20] LABS: ACTIVATED PTT 32.7 SECONDS (25.2-36.5)
[2022-11-03] MEDS ORDERED: SODIUM CHLORIDE 1,000 ML IV STA (19:35)
[2022-11-03] MEDS ORDERED: morphine CARPU-JECT 4 MG/1 ML DISP.SYRIN IVPUSH ONE (19:42)
[2022-11-03] MEDS ORDERED: MEROPENEM 1 GM in DEXTROSE 5%-WATER 100 ML IVPB ONE (19:49)
[2022-11-03] MEDS ORDERED: SULFAMETHOXAZOLE/TRIMETHOPRIM 800MG/160MG D.S. TABLET PO ONE (19:49)
[2022-11-03] MEDS ORDERED: morphine SULFATE 4 MG/ML VIAL ONE (19:49)
[2022-11-03 19:54] LABS: URINE RBC 176 /uL (0-23.9); YEAST NONE SEEN (NEGATIVE)
[2022-11-03] MEDS ORDERED: MEROPENEM 1 GM VIAL (RESTRICTED TO ID) IVPB ONE (20:08)
[2022-11-03] MEDS ORDERED: IBUPROFEN 600 MG TABLET (FP) PO ONE ×2 (20:19→21:18)
[2022-11-03 20:35] LABS: CALCIUM 9.2 mg/dL (8.5-10.1)
[2022-11-03 20:36] LABS: ALBUMIN 2.9 g/dl (3.4-5.0)
[2022-11-03 20:40] LABS: BILIRUBIN,TOTAL 0.2 mg/dL (0.2-1); CREATININE 0.9 mg/dL (0.55-1.3)
[2022-11-03 20:41] LABS: TOT PROT 7.8 g/dl (6.4-8.2)
[2022-11-03] MEDS ORDERED: DOCUSATE SODIUM 100 MG CAPSULE (FP) PO PRN (22:16)
[2022-11-03] MEDS ORDERED: morphine SULFATE 4 MG/ML VIAL IVPUSH ONE (23:28)
[2022-11-03] MEDS ORDERED: TAMSULOSIN HCL 0.4 MG CAP PO ONE (23:32)
[2022-11-04] MEDS ORDERED: DOCUSATE SODIUM 100 MG CAPSULE (FP) PO PRN (00:08)
[2022-11-04] MEDS ORDERED: ACETAMINOPHEN 1000 MG/100 ML BAG IVPB PRN ×2 (00:08→02:00)
[2022-11-04] MEDS ORDERED: SODIUM CHLORIDE 500 ML IV STA (00:10)
[2022-11-04] MEDS ORDERED: MELATONIN 5 MG TABLETS ONE (00:14)
[2022-11-04] MEDS ORDERED: TAMSULOSIN HCL 0.4 MG CAP ONE (00:15)
[2022-11-04] MEDS ORDERED: ACETAMINOPHEN INJECTION 100 ML IVPB ONE (01:21)
[2022-11-04 02:37] VITALS: BMI 30.2
[2022-11-04] MEDS: SODIUM CHLORIDE 1,000 ML IV SCH ×4 (03:23→23:05)
[2022-11-04] MEDS: MEROPENEM 1 GM in DEXTROSE 5%-WATER 100 ML IVPB SCH ×2 (03:24→10:07)
[2022-11-04] MEDS: ONDANSETRON 4 MG/2 ML VIAL IVPUSH PRN (06:00)
[2022-11-04 08:33] LABS: HEMATOCRIT 29.2 % (32.4-45.2); HEMOGLOBIN 9.4 GM/dL (10.7-15.3); LYMPH % 28.5 % (8-40); MCH 25.3 pg (25.7-33.7); MCHC 32.1 g/dl (32.0-36.0); MEAN CELL VOLUME 78.8 fl (80-96); MEAN PLT VOLUME 7.4 fl (7.5-11.1); MONO % 9.5 % (3.8-10.2); PLATELET COUNT 262 10^3/uL (134-434); RBC 3.71 M/mm3 (3.60-5.2); RDW 16.7 % (11.6-15.6); WHITE BLOOD COUNT 4.1 K/mm3 (4.0-10.0)
[2022-11-04 09:11] LABS: CALCIUM 8.8 mg/dL (8.5-10.1)
[2022-11-04 09:14] LABS: CREATININE 0.8 mg/dL (0.55-1.3)
[2022-11-04] MEDS ORDERED: POLYETHYLENE GLYCOL (HEALTHYLAX) 3350 17 GM PACKET PO PRN (09:25)
[2022-11-04] MEDS ORDERED: ENOXAPARIN NA (PORCINE) 40 MG/0.4 ML DISP.SYRIN SQ SCH (10:00)
[2022-11-04] MEDS: FERROUS SO4 325 MG TABLET (FP) PO SCH (10:07)
[2022-11-04] MEDS: HEPARIN NA (PORCINE) 5,000 UNITS/ML 1ML VIAL SQ SCH ×2 (13:53→21:21)
[2022-11-04] MEDS: CEFTRIAXONE 1 GM in DEXTROSE 5%-WATER - 50 ML IVPB SCH (16:31)
[2022-11-04] MEDS: traMADol HCL 50 MG TABLET PO PRN (16:39)
[2022-11-04] MEDS: TAMSULOSIN HCL 0.4 MG CAP PO SCH (21:21)
[2022-11-05] MEDS: MELATONIN 5 MG TABLETS PO PRN ×2 (00:48→21:49)
[2022-11-05] MEDS: traMADol HCL 50 MG TABLET PO PRN ×4 (00:48→21:47)
[2022-11-05] MEDS: ONDANSETRON 4 MG/2 ML VIAL IVPUSH PRN (00:48)
[2022-11-05] MEDS: HEPARIN NA (PORCINE) 5,000 UNITS/ML 1ML VIAL SQ SCH ×3 (05:41→21:49)
[2022-11-05] MEDS: SODIUM CHLORIDE 1,000 ML IV SCH ×4 (07:42→20:59)
[2022-11-05 08:53] LABS: BASO % 0.8 % (0-2.0); HEMATOCRIT 29.1 % (32.4-45.2); HEMOGLOBIN 9.4 GM/dL (10.7-15.3); LYMPH % 27.9 % (8-40); MCH 25.3 pg (25.7-33.7); MCHC 32.3 g/dl (32.0-36.0); MEAN CELL VOLUME 78.3 fl (80-96); MEAN PLT VOLUME 7.3 fl (7.5-11.1); MONO % 8.8 % (3.8-10.2); NEUT % 54.5 % (42.8-82.8); PLATELET COUNT 253 10^3/uL (134-434); RBC 3.71 M/mm3 (3.60-5.2); RDW 16.8 % (11.6-15.6); WHITE BLOOD COUNT 4.3 K/mm3 (4.0-10.0)
[2022-11-05] MEDS: CEFTRIAXONE 1 GM in DEXTROSE 5%-WATER - 50 ML IVPB SCH (09:54)
[2022-11-05] MEDS: FERROUS SO4 325 MG TABLET (FP) PO SCH (09:54)
[2022-11-05] MEDS: MEROPENEM 1 GM in DEXTROSE 5%-WATER 100 ML IVPB SCH (09:59)
[2022-11-05 10:14] LABS: BLOOD UREA NITROGEN 9.9 mg/dL (7-18); CALCIUM 8.8 mg/dL (8.5-10.1)
[2022-11-05 10:19] LABS: CREATININE 0.8 mg/dL (0.55-1.3)
[2022-11-05] MEDS ORDERED: diphenhydrAMINE HCL 25 MG CAPSULE (FP) PO ONE (21:18)
[2022-11-05] MEDS: TAMSULOSIN HCL 0.4 MG CAP PO SCH (21:49)
[2022-11-06] MEDS: HEPARIN NA (PORCINE) 5,000 UNITS/ML 1ML VIAL SQ SCH ×3 (06:33→21:44)
[2022-11-06] MEDS: SODIUM CHLORIDE 1,000 ML IV SCH (06:37)
[2022-11-06] MEDS: FERROUS SO4 325 MG TABLET (FP) PO SCH (09:50)
[2022-11-06] MEDS: CEFTRIAXONE 1 GM in DEXTROSE 5%-WATER - 50 ML IVPB SCH (09:51)
[2022-11-06 09:55] LABS: BASO % 0.6 % (0-2.0); EOS % 5.9 % (0-4.5); HEMATOCRIT 29.8 % (32.4-45.2); HEMOGLOBIN 9.6 GM/dL (10.7-15.3); LYMPH % 19.9 % (8-40); MCH 25.2 pg (25.7-33.7); MCHC 32.3 g/dl (32.0-36.0); MEAN CELL VOLUME 77.9 fl (80-96); MEAN PLT VOLUME 7.2 fl (7.5-11.1); MONO % 7.6 % (3.8-10.2); PLATELET COUNT 240 10^3/uL (134-434); RBC 3.83 M/mm3 (3.60-5.2); RDW 16.4 % (11.6-15.6); WHITE BLOOD COUNT 4.6 K/mm3 (4.0-10.0)
[2022-11-06 10:37] LABS: ALBUMIN 2.5 g/dl (3.4-5.0); CALCIUM 8.6 mg/dL (8.5-10.1)
[2022-11-06 10:38] LABS: BLOOD UREA NITROGEN 11.4 mg/dL (7-18)
[2022-11-06 10:39] LABS: CREATININE 0.8 mg/dL (0.55-1.3)
[2022-11-06 10:41] LABS: TOT PROT 6.5 g/dl (6.4-8.2)
[2022-11-06 10:42] LABS: BILIRUBIN,TOTAL 0.2 mg/dL (0.2-1)
[2022-11-06] MEDS: traMADol HCL 50 MG TABLET PO PRN ×2 (12:44→21:44)
[2022-11-06] MEDS: MELATONIN 5 MG TABLETS PO PRN (21:44)
[2022-11-06] MEDS: TAMSULOSIN HCL 0.4 MG CAP PO SCH (21:44)
[2022-11-07] MEDS ORDERED: IBUPROFEN 400 MG TABLET (FP) PO ONE (00:28)
[2022-11-07] MEDS: HEPARIN NA (PORCINE) 5,000 UNITS/ML 1ML VIAL SQ SCH ×3 (06:23→21:20)
[2022-11-07] MEDS ORDERED: ALBUTEROL SO4 0.083% IH SOL 2.5 MG/3 ML VIAL.NEB. NEB ONE (09:08)
[2022-11-07] MEDS: CEFTRIAXONE 1 GM in DEXTROSE 5%-WATER - 50 ML IVPB SCH (10:07)
[2022-11-07] MEDS: FERROUS SO4 325 MG TABLET (FP) PO SCH (10:08)
[2022-11-07] MEDS: ALBUTEROL SO4 HFA INHALER IH PRN (10:08)
[2022-11-07] MEDS: traMADol HCL 50 MG TABLET PO PRN ×2 (10:16→17:09)
[2022-11-07] MEDS ORDERED: ACETAMINOPHEN 325 MG TABLET (FP) PO PRN (12:34)
[2022-11-07] MEDS: oxyCODONE HCL 5 MG TABLET PO PRN ×2 (12:48→20:40)
[2022-11-07] MEDS: DEXTROSE 5%-0.45% SALINE 1,000 ML IV SCH (14:57)
[2022-11-07] MEDS: ACETAMINOPHEN 325 MG TABLET (FP) PO PRN (19:12)
[2022-11-07] MEDS: MELATONIN 5 MG TABLETS PO PRN (20:42)
[2022-11-07] MEDS: TAMSULOSIN HCL 0.4 MG CAP PO SCH (21:20)
[2022-11-08] MEDS: DEXTROSE 5%-0.45% SALINE 1,000 ML IV SCH ×2 (05:47→15:32)
[2022-11-08] MEDS: HEPARIN NA (PORCINE) 5,000 UNITS/ML 1ML VIAL SQ SCH ×3 (05:47→21:08)
[2022-11-08] MEDS: oxyCODONE HCL 5 MG TABLET PO PRN ×3 (05:53→21:08)
[2022-11-08] MEDS: CEFTRIAXONE 1 GM in DEXTROSE 5%-WATER - 50 ML IVPB SCH (10:01)
[2022-11-08] MEDS: ACETAMINOPHEN 325 MG TABLET (FP) PO PRN (10:01)
[2022-11-08] MEDS: FERROUS SO4 325 MG TABLET (FP) PO SCH (10:01)
[2022-11-08] MEDS ORDERED: SODIUM CHLORIDE NASAL SPRAY 44 ML BOTTLE NS PRN (13:00)
[2022-11-08] MEDS: ACETAMINOPHEN/CAFFEINE/BUTALBITAL 1 TAB PO PRN (15:30)
[2022-11-08 15:32] VITALS: RESP 18
[2022-11-08 15:32] LABS: EPI CELLS >36 /uL (0-25.1); HYALINE CASTS 0 /uL (0-3.1); PH,URINE 6.5 (5.0-8.0); URINE APPEARANCE CLEAR; URINE BACTERIA 11 /uL (0-1359); URINE BILIRUBIN NEGATIVE (NEGATIVE); URINE COLOR YELLOW; URINE GLUCOSE (UA) NEGATIVE (NEGATIVE); URINE KETONE NEGATIVE (NEGATIVE); URINE LEUK ESTERASE 3+ (NEGATIVE); URINE NITRITE NEGATIVE (NEGATIVE); URINE PROTEIN NEGATIVE (NEGATIVE); URINE RBC 16 /uL (0-23.9); URINE UROBILINOGEN 0.2 mg/dL (0.2-1.0); URINE WBC 144 /uL (0-25.8)
[2022-11-08] MEDS ORDERED: BENZOCAINE/MENTH/CETYLPYRD CL 1 EACH LOZENGE MM PRN (15:34)
[2022-11-08] MEDS ORDERED: PROPOFOL 40 ML ONE (16:19)
[2022-11-08] MEDS ORDERED: LIDOCAINE HCL/PF 2% SDV 5ML VIAL ONE (16:19)
[2022-11-08] MEDS ORDERED: MIDAZOLAM HCL 2 MG/2 ML SINGLE DOSE VIAL ONE (16:19)
[2022-11-08] MEDS ORDERED: FENTANYL CITRATE/PF 50 MCG/ML VIAL ONE (16:19)
[2022-11-08] MEDS ORDERED: DEXAMETHASONE SOD PHOSPHATE 4 MG/1 ML VIAL ONE (16:21)
[2022-11-08] MEDS ORDERED: ONDANSETRON 4 MG/2 ML VIAL ONE (16:21)
[2022-11-08] MEDS ORDERED: SODIUM CHLORIDE 500 ML IV STA (17:03)
[2022-11-08] MEDS: IBUPROFEN 400 MG TABLET (FP) PO PRN (18:35)
[2022-11-08] MEDS: MELATONIN 5 MG TABLETS PO PRN (21:08)
[2022-11-08] MEDS: TAMSULOSIN HCL 0.4 MG CAP PO SCH (21:08)
[2022-11-08] MEDS: FLUTICASONE PROP 0.05% 16 GM NASAL SPRAY NS SCH (23:08)
[2022-11-09] MEDS: ACETAMINOPHEN/CAFFEINE/BUTALBITAL 1 TAB PO PRN ×3 (02:26→21:10)
[2022-11-09] MEDS: CEFTRIAXONE 1 GM in DEXTROSE 5%-WATER - 50 ML IVPB SCH (10:13)
[2022-11-09] MEDS: FLUTICASONE PROP 0.05% 16 GM NASAL SPRAY NS SCH ×2 (10:16→21:12)
[2022-11-09] MEDS: ALBUTEROL SO4 HFA INHALER IH PRN (10:19)
[2022-11-09] MEDS: FERROUS SO4 325 MG TABLET (FP) PO SCH (10:20)
[2022-11-09 10:27] LABS: HEMATOCRIT 31.7 % (32.4-45.2); HEMOGLOBIN 10.2 GM/dL (10.7-15.3); MCH 24.9 pg (25.7-33.7); MCHC 32.3 g/dl (32.0-36.0); MEAN PLT VOLUME 7.3 fl (7.5-11.1); PLATELET COUNT 211 10^3/uL (134-434); RBC 4.12 M/mm3 (3.60-5.2); RDW 17.4 % (11.6-15.6); WHITE BLOOD COUNT 2.5 K/mm3 (4.0-10.0)
[2022-11-09 11:02] LABS: CALCIUM 8.7 mg/dL (8.5-10.1)
[2022-11-09 11:03] LABS: ALBUMIN 2.7 g/dl (3.4-5.0)
[2022-11-09 11:06] LABS: CREATININE 0.7 mg/dL (0.55-1.3)
[2022-11-09 11:07] LABS: TOT PROT 7.2 g/dl (6.4-8.2)
[2022-11-09 11:08] LABS: BILIRUBIN,TOTAL 0.3 mg/dL (0.2-1)
[2022-11-09] MEDS: oxyCODONE HCL 5 MG TABLET PO PRN (16:46)
[2022-11-09] MEDS: TAMSULOSIN HCL 0.4 MG CAP PO SCH (21:10)
[2022-11-09] MEDS: MELATONIN 5 MG TABLETS PO PRN (21:11)
[2022-11-10] MEDS: oxyCODONE HCL 5 MG TABLET PO PRN (06:20)
[2022-11-10] MEDS: FLUTICASONE PROP 0.05% 16 GM NASAL SPRAY NS SCH (10:35)
[2022-11-10] MEDS: FERROUS SO4 325 MG TABLET (FP) PO SCH (10:35)
[2022-11-10] MEDS: CEFTRIAXONE 1 GM in DEXTROSE 5%-WATER - 50 ML IVPB SCH (10:35)
[2022-11-10] MEDS: IBUPROFEN 400 MG TABLET (FP) PO PRN (10:46)
[2022-11-10] MEDS: ACETAMINOPHEN/CAFFEINE/BUTALBITAL 1 TAB PO PRN (10:47)
[2022-11-10 10:52] VITALS: BP 104/57; PULSE 72; TEMP 98.2
== END 2022-11-10 15:24 | disposition home or self-care (01) | DRG 463 ==
LOC: JER 17:22 → JERBED 20:08 → J7W 11-04 02:06
PROVIDERS: ADMIT Internal Medicine; ATTEND Internal Medicine
DX: N13.6 Pyonephrosis (principal); D64.9 Anemia, unspecified; J45.909 Unspecified asthma, uncomplicated; B96.20 Unspecified Escherichia coli [E. coli] as the cause of diseases classified elsewhere; R50.9 Fever, unspecified; U07.1 COVID-19; F41.8 Other specified anxiety disorders; J01.90 Acute sinusitis, unspecified; R51.9 Headache, unspecified; Z88.0 Allergy status to penicillin
CPT/HCPCS: 0241U-QW; 36415; 71045-TC-FY; 74176-TC; 80048; 80053; 81003; 83690; 84703; 85025; 85027; 85610; 85730; 87040; 87086; 87186; 93005; 93010; 99285-25; J1644

== ENCOUNTER 2022-12-23 13:32 | Emergency (ER) | payer OTHER ==
[2022-12-23 13:40] VITALS: BP 116/84; PULSE 86; RESP 18; TEMP 98; BMI 29.1
[2022-12-23] MEDS ORDERED: ACETAMINOPHEN 500 MG TABLET (FP) PO ONE (14:31)
[2022-12-23] MEDS ORDERED: ACETAMINOPHEN 500 MG TABLET (FP) ONE (14:43)
[2022-12-23] MEDS ORDERED: LIDOCAINE 5% TOPICAL PATCH TP ONE (15:40)
[2022-12-23] MEDS ORDERED: IBUPROFEN 600 MG TABLET (FP) PO ONE ×2 (15:40→15:44)
[2022-12-23] MEDS ORDERED: CYCLOBENZAPRINE HCL 10 MG TABLET (FP) PO ONE (15:40)
[2022-12-23] MEDS ORDERED: CYCLOBENZAPRINE HCL 10 MG TABLET (FP) ONE (15:44)
[2022-12-23] MEDS ORDERED: LIDOCAINE 5% TOPICAL PATCH ONE (15:44)
[2022-12-23] MEDS ORDERED: LIDOCAINE PATCH REMOVAL MC SCH (22:00)
== END 2022-12-23 16:01 | disposition home or self-care (01) ==
LOC: JER 13:32 → JERFT 13:32
DX: S09.90XA Unspecified injury of head, initial encounter (principal); M54.2 Cervicalgia; W22.8XXA Striking against or struck by other objects, initial encounter
CPT/HCPCS: 70450-TC; 72125-TC; 99284-25

== ENCOUNTER 2023-03-22 16:36 | Emergency (ER) | payer OTHER ==
[2023-03-22 16:42] VITALS: BP 146/83; PULSE 76; RESP 18; TEMP 98.3; BMI 30.7
[2023-03-22 18:36] LABS: EPI CELLS 9 /uL (0-25.1); HYALINE CASTS 5 /uL (0-3.1); URINE APPEARANCE CLOUDY; URINE BACTERIA >9,000 /uL (0-1359); URINE BILIRUBIN NEGATIVE (NEGATIVE); URINE COLOR YELLOW; URINE GLUCOSE (UA) NEGATIVE (NEGATIVE); URINE KETONE NEGATIVE (NEGATIVE); URINE LEUK ESTERASE 3+ (NEGATIVE); URINE NITRITE POSITIVE (NEGATIVE); URINE PROTEIN 1+ (NEGATIVE); URINE RBC 760 /uL (0-23.9); URINE UROBILINOGEN 0.2 mg/dL (0.2-1.0); URINE WBC 640 /uL (0-25.8)
[2023-03-22 18:37] LABS: HCG,QUALITATIVE URINE Negative
[2023-03-22 18:40] LABS: THROAT:GRP A STREP DETECTED (NOTDETECTED)
== END 2023-03-22 19:46 | disposition home or self-care (01) ==
LOC: JERFT 16:36
DX: N39.0 Urinary tract infection, site not specified (principal); J02.0 Streptococcal pharyngitis
CPT/HCPCS: 0241U-QW; 81003; 84703; 87651; 99283-25

== ENCOUNTER 2023-06-16 22:30 | Inpatient (IN) | payer OTHER ==
[2023-06-16] MEDS ORDERED: LIDOCAINE 5% TOPICAL PATCH TP ONE (22:54)
[2023-06-16] MEDS ORDERED: ACETAMINOPHEN 325 MG TABLET (FP) PO ONE (22:54)
[2023-06-16] MEDS ORDERED: ACETAMINOPHEN 1000 MG/100 ML BAG IVPB ONE (23:00)
[2023-06-16] MEDS ORDERED: LIDOCAINE 5% TOPICAL PATCH ONE (23:05)
[2023-06-16] MEDS ORDERED: ACETAMINOPHEN INJECTION 100 ML IVPB ONE (23:05)
[2023-06-16] MEDS ORDERED: KETOROLAC TROMETHAMINE 15 MG/ML VIAL IVPUSH ONE (23:08)
[2023-06-16 23:10] LABS: BASO % 1.2 % (0-2.0); EOS % 3.1 % (0-4.5); HEMATOCRIT 31.8 % (32.4-45.2); HEMOGLOBIN 10.8 GM/dL (10.7-15.3); LYMPH % 35.2 % (8-40); MCH 27.8 pg (25.7-33.7); MEAN CELL VOLUME 81.7 fl (80-96); MEAN PLT VOLUME 7.9 fl (7.5-11.1); MONO % 9.9 % (3.8-10.2); NEUT % 50.6 % (42.8-82.8); PLATELET COUNT 215 10^3/uL (134-434); RDW 15.1 % (11.6-15.6); WHITE BLOOD COUNT 4.1 K/mm3 (4.0-10.0)
[2023-06-16] MEDS ORDERED: KETOROLAC TROMETHAMINE 15 MG/ML VIAL ONE (23:10)
[2023-06-16 23:20] LABS: POTASSIUM 3.6 mmol/L (3.5-5.1)
[2023-06-16 23:22] LABS: ALBUMIN 3.3 g/dl (3.4-5.0); BLOOD UREA NITROGEN 21.1 mg/dL (7-18); CALCIUM 8.9 mg/dL (8.5-10.1)
[2023-06-16 23:25] LABS: CREATININE 0.9 mg/dL (0.55-1.3)
[2023-06-16 23:27] LABS: BILIRUBIN,TOTAL 0.2 mg/dL (0.2-1); TOT PROT 6.6 g/dl (6.4-8.2)
[2023-06-16] MEDS ORDERED: morphine CARPU-JECT 4 MG/1 ML DISP.SYRIN IVPUSH ONE (23:46)
[2023-06-17] MEDS ORDERED: diphenhydrAMINE HCL 25 MG CAPSULE (FP) PO ONE ×2 (00:15→00:17)
[2023-06-17 05:42] LABS: EPI CELLS 14 /uL (0-25.1); HYALINE CASTS 3 /uL (0-3.1); URINE APPEARANCE CLEAR; URINE BACTERIA >9,000 /uL (0-1359); URINE BILIRUBIN NEGATIVE (NEGATIVE); URINE COLOR YELLOW; URINE GLUCOSE (UA) NEGATIVE (NEGATIVE); URINE KETONE NEGATIVE (NEGATIVE); URINE LEUK ESTERASE TRACE (NEGATIVE); URINE NITRITE NEGATIVE (NEGATIVE); URINE PROTEIN 1+ (NEGATIVE); URINE RBC 397 /uL (0-23.9); URINE WBC 270 /uL (0-25.8)
[2023-06-17] MEDS ORDERED: CEFTRIAXONE 1,000 MG in DEXTROSE 5%-WATER - 50 ML IVPB ONE (06:35)
[2023-06-17] MEDS ORDERED: CEFTRIAXONE 1 GM/50 ML BAG ONE (07:17)
[2023-06-17] MEDS ORDERED: LIDOCAINE 5% TOPICAL PATCH ONE (07:17)
[2023-06-17] MEDS ORDERED: morphine CARPU-JECT 4 MG/1 ML DISP.SYRIN IVPUSH ONE (07:50)
[2023-06-17] MEDS ORDERED: LACTATED RINGERS SOLUTION 1,000 ML/1,000 ML INFUS.BAG IV SCH (08:45)
[2023-06-17] MEDS ORDERED: KETOROLAC TROMETHAMINE 15 MG/ML VIAL IVPUSH ONE (09:42)
[2023-06-17] MEDS ORDERED: KETOROLAC TROMETHAMINE 15 MG/ML VIAL ONE (09:51)
[2023-06-17] MEDS ORDERED: CYCLOBENZAPRINE HCL 10 MG TABLET (FP) PO ONE (10:12)
[2023-06-17] MEDS ORDERED: LIDOCAINE PATCH REMOVAL MC ONE (11:00)
[2023-06-17] MEDS: CYCLOBENZAPRINE HCL 10 MG TABLET (FP) PO SCH ×3 (11:50→21:56)
[2023-06-17] MEDS: ENOXAPARIN NA (PORCINE) 40 MG/0.4 ML DISP.SYRIN SQ SCH (11:57)
[2023-06-17] MEDS: HYDROmorphone HCl 2 MG/ML VIAL IVPB PRN ×2 (12:24→18:47)
[2023-06-17] MEDS ORDERED: KETOROLAC TROMETHAMINE 30 MG/1 ML VIAL IVPUSH PRN (13:00)
[2023-06-17] MEDS: PANTOPRAZOLE SODIUM 40 MG VIAL IVPUSH SCH (18:56)
[2023-06-17 21:38] LABS: PHENCYCLIDINE,URINE NEGATIVE (NEGATIVE)
[2023-06-17 21:39] LABS: COCAINE, UR NEGATIVE (NEGATIVE); METHADONE, UR NEGATIVE (NEGATIVE); URINE BARBITURATES NEGATIVE (NEGATIVE); URINE BENZODIAZEPINES NEGATIVE (NEGATIVE)
[2023-06-17 21:44] LABS: OPIATES, URI POSITIVE (NEGATIVE); URINE AMPHETAMINES NEGATIVE (NEGATIVE)
[2023-06-18] MEDS: HYDROmorphone HCl 2 MG/ML VIAL IVPB PRN ×3 (05:46→21:58)
[2023-06-18] MEDS: CYCLOBENZAPRINE HCL 10 MG TABLET (FP) PO SCH ×3 (05:47→21:17)
[2023-06-18 10:15] LABS: HEMATOCRIT 31.4 % (32.4-45.2); HEMOGLOBIN 10.3 GM/dL (10.7-15.3); MCH 27.5 pg (25.7-33.7); MEAN CELL VOLUME 83.4 fl (80-96); MEAN PLT VOLUME 8.5 fl (7.5-11.1); PLATELET COUNT 193 10^3/uL (134-434); RBC 3.76 M/mm3 (3.60-5.2)
[2023-06-18 10:32] LABS: POTASSIUM 3.8 mmol/L (3.5-5.1)
[2023-06-18 10:40] LABS: BLOOD UREA NITROGEN 18.9 mg/dL (7-18); CALCIUM 8.4 mg/dL (8.5-10.1)
[2023-06-18 10:41] LABS: ALBUMIN 3.1 g/dl (3.4-5.0)
[2023-06-18 10:44] LABS: CREATININE 0.9 mg/dL (0.55-1.3)
[2023-06-18 10:45] LABS: BILIRUBIN,TOTAL 0.3 mg/dL (0.2-1); TOT PROT 6.3 g/dl (6.4-8.2)
[2023-06-18] MEDS: PANTOPRAZOLE SODIUM 40 MG VIAL IVPUSH SCH (10:52)
[2023-06-18] MEDS: CEFTRIAXONE 1 GM in DEXTROSE 5%-WATER - 50 ML IVPB SCH (11:04)
[2023-06-18] MEDS: ENOXAPARIN NA (PORCINE) 40 MG/0.4 ML DISP.SYRIN SQ SCH (11:04)
[2023-06-18] MEDS ORDERED: SODIUM CHLORIDE 500 ML IV STA (12:01)
[2023-06-18] MEDS ORDERED: HYDROmorphone HCl 2 MG/ML VIAL IVPB PRN (12:29)
[2023-06-18] MEDS: TAMSULOSIN HCL 0.4 MG CAP PO ONE ×2 (12:51→16:31)
[2023-06-18] MEDS: KETOROLAC TROMETHAMINE 30 MG/1 ML VIAL IVPUSH PRN (12:51)
[2023-06-18] MEDS: SODIUM CHLORIDE 1,000 ML IV SCH (12:52)
[2023-06-18] MEDS ORDERED: HYDROmorphone HCl 2 MG/ML VIAL IVPB ONE (16:21)
[2023-06-18] MEDS: diphenhydrAMINE HCL 25 MG CAPSULE (FP) PO PRN (18:30)
[2023-06-18] MEDS: NICOTINE 7 MG/24 HOURS TOPICAL PATCH TD SCH ×2 (21:16→21:24)
[2023-06-18] MEDS: TAMSULOSIN HCL 0.4 MG CAP PO SCH (21:17)
[2023-06-19] MEDS: HYDROmorphone HCl 2 MG/ML VIAL IVPB PRN ×6 (03:02→21:21)
[2023-06-19] MEDS: CYCLOBENZAPRINE HCL 10 MG TABLET (FP) PO SCH ×3 (06:58→21:09)
[2023-06-19 08:51] LABS: BASO % 0.4 % (0-2.0); EOS % 3.9 % (0-4.5); HEMATOCRIT 27.4 % (32.4-45.2); HEMOGLOBIN 9.3 GM/dL (10.7-15.3); LYMPH % 26.8 % (8-40); MCH 27.5 pg (25.7-33.7); MCHC 33.9 g/dl (32.0-36.0); MEAN CELL VOLUME 81.1 fl (80-96); MEAN PLT VOLUME 7.8 fl (7.5-11.1); MONO % 6.9 % (3.8-10.2); PLATELET COUNT 153 10^3/uL (134-434); RBC 3.38 M/mm3 (3.60-5.2); WHITE BLOOD COUNT 3.8 K/mm3 (4.0-10.0)
[2023-06-19 09:14] LABS: POTASSIUM 3.5 mmol/L (3.5-5.1)
[2023-06-19 09:23] LABS: ALBUMIN 2.8 g/dl (3.4-5.0); BLOOD UREA NITROGEN 17.8 mg/dL (7-18); CALCIUM 7.6 mg/dL (8.5-10.1); MAGNESIUM 1.9 mg/dL (1.8-2.4)
[2023-06-19 09:25] LABS: BILIRUBIN,TOTAL 0.2 mg/dL (0.2-1); CREATININE 0.7 mg/dL (0.55-1.3); TOT PROT 5.6 g/dl (6.4-8.2)
[2023-06-19] MEDS: ENOXAPARIN NA (PORCINE) 40 MG/0.4 ML DISP.SYRIN SQ SCH (09:26)
[2023-06-19] MEDS: TAMSULOSIN HCL 0.4 MG CAP PO SCH ×2 (09:27→21:09)
[2023-06-19] MEDS: PANTOPRAZOLE 40 MG TABLET PO SCH (09:27)
[2023-06-19] MEDS: CEFTRIAXONE 1 GM in DEXTROSE 5%-WATER - 50 ML IVPB SCH (09:27)
[2023-06-19] MEDS ORDERED: POTASSIUM CHLORIDE TABS 20 MEQ TABLET.ER (FP) PO ONE (11:03)
[2023-06-19] MEDS: SODIUM CHLORIDE 1,000 ML IV SCH ×2 (12:30→13:41)
[2023-06-19] MEDS ORDERED: HYDROmorphone HCl 2 MG/ML VIAL IVPB ONE (12:38)
[2023-06-19] MEDS: diphenhydrAMINE HCL 25 MG CAPSULE (FP) PO PRN (14:11)
[2023-06-19] MEDS: NICOTINE 7 MG/24 HOURS TOPICAL PATCH TD SCH (21:10)
[2023-06-20] MEDS: HYDROmorphone HCl 2 MG/ML VIAL IVPB PRN ×6 (00:35→19:12)
[2023-06-20] MEDS: CYCLOBENZAPRINE HCL 10 MG TABLET (FP) PO SCH ×3 (06:00→22:39)
[2023-06-20] MEDS ORDERED: traMADol HCL 50 MG TABLET PO PRN (08:12)
[2023-06-20 08:59] LABS: BASO % 0.8 % (0-2.0); EOS % 6.1 % (0-4.5); HEMATOCRIT 27.6 % (32.4-45.2); LYMPH % 28.7 % (8-40); MCH 27.1 pg (25.7-33.7); MCHC 32.7 g/dl (32.0-36.0); MEAN CELL VOLUME 82.7 fl (80-96); MEAN PLT VOLUME 8.2 fl (7.5-11.1); MONO % 8.7 % (3.8-10.2); NEUT % 55.7 % (42.8-82.8); PLATELET COUNT 143 10^3/uL (134-434); RBC 3.34 M/mm3 (3.60-5.2); RDW 14.8 % (11.6-15.6); WHITE BLOOD COUNT 3.3 K/mm3 (4.0-10.0)
[2023-06-20 09:05] LABS: ALBUMIN 2.8 g/dl (3.4-5.0); BLOOD UREA NITROGEN 13.1 mg/dL (7-18); CALCIUM 7.9 mg/dL (8.5-10.1)
[2023-06-20 09:07] LABS: CREATININE 0.7 mg/dL (0.55-1.3)
[2023-06-20 09:08] LABS: BILIRUBIN,TOTAL 0.3 mg/dL (0.2-1)
[2023-06-20 09:09] LABS: TOT PROT 5.6 g/dl (6.4-8.2)
[2023-06-20] MEDS: PANTOPRAZOLE 40 MG TABLET PO SCH (09:25)
[2023-06-20] MEDS: TAMSULOSIN HCL 0.4 MG CAP PO SCH ×2 (09:25→22:39)
[2023-06-20] MEDS: CEFTRIAXONE 1 GM in DEXTROSE 5%-WATER - 50 ML IVPB SCH (09:26)
[2023-06-20] MEDS: ENOXAPARIN NA (PORCINE) 40 MG/0.4 ML DISP.SYRIN SQ SCH (09:26)
[2023-06-20] MEDS: GABAPENTIN 100 MG CAPSULE PO SCH ×3 (11:10→22:40)
[2023-06-20] MEDS: ACETAMINOPHEN 500 MG TABLET (FP) PO SCH ×3 (11:10→23:28)
[2023-06-20] MEDS: SODIUM CHLORIDE 1,000 ML IV SCH (14:08)
[2023-06-20] MEDS: diphenhydrAMINE HCL 25 MG CAPSULE (FP) PO PRN (15:58)
[2023-06-20] MEDS: NICOTINE 7 MG/24 HOURS TOPICAL PATCH TD SCH (22:40)
[2023-06-21] MEDS: GABAPENTIN 100 MG CAPSULE PO SCH ×3 (07:11→23:13)
[2023-06-21] MEDS: ACETAMINOPHEN 500 MG TABLET (FP) PO SCH ×4 (07:11→17:57)
[2023-06-21] MEDS: CYCLOBENZAPRINE HCL 10 MG TABLET (FP) PO SCH ×3 (07:11→23:12)
[2023-06-21] MEDS: ENOXAPARIN NA (PORCINE) 40 MG/0.4 ML DISP.SYRIN SQ SCH (09:40)
[2023-06-21] MEDS: TAMSULOSIN HCL 0.4 MG CAP PO SCH ×2 (09:40→23:14)
[2023-06-21] MEDS: PANTOPRAZOLE 40 MG TABLET PO SCH (09:41)
[2023-06-21] MEDS: HYDROmorphone HCl 2 MG/ML VIAL IVPB PRN ×3 (09:41→17:57)
[2023-06-21] MEDS: CEFTRIAXONE 1 GM in DEXTROSE 5%-WATER - 50 ML IVPB SCH (09:41)
[2023-06-21 10:16] LABS: BASO % 0.6 % (0-2.0); EOS % 6.5 % (0-4.5); HEMATOCRIT 31.3 % (32.4-45.2); HEMOGLOBIN 10.3 GM/dL (10.7-15.3); LYMPH % 22.2 % (8-40); MCH 27.1 pg (25.7-33.7); MEAN CELL VOLUME 82.2 fl (80-96); MEAN PLT VOLUME 8.3 fl (7.5-11.1); MONO % 7.2 % (3.8-10.2); NEUT % 63.5 % (42.8-82.8); PLATELET COUNT 160 10^3/uL (134-434); RBC 3.81 M/mm3 (3.60-5.2); RDW 14.6 % (11.6-15.6); WHITE BLOOD COUNT 3.6 K/mm3 (4.0-10.0)
[2023-06-21 10:29] LABS: POTASSIUM 4.1 mmol/L (3.5-5.1)
[2023-06-21 10:51] LABS: CALCIUM 8.4 mg/dL (8.5-10.1)
[2023-06-21 10:52] LABS: BLOOD UREA NITROGEN 11.6 mg/dL (7-18); MAGNESIUM 2.1 mg/dL (1.8-2.4)
[2023-06-21 10:55] LABS: CREATININE 0.7 mg/dL (0.55-1.3)
[2023-06-21 10:56] LABS: TOT PROT 6.3 g/dl (6.4-8.2)
[2023-06-21 10:57] LABS: BILIRUBIN,TOTAL 0.2 mg/dL (0.2-1)
[2023-06-21] MEDS: SODIUM CHLORIDE 1,000 ML IV SCH (14:01)
[2023-06-21] MEDS: NICOTINE 7 MG/24 HOURS TOPICAL PATCH TD SCH (23:12)
[2023-06-22] MEDS: ACETAMINOPHEN 500 MG TABLET (FP) PO SCH ×4 (01:01→18:24)
[2023-06-22] MEDS: CYCLOBENZAPRINE HCL 10 MG TABLET (FP) PO SCH ×3 (06:45→22:23)
[2023-06-22] MEDS: GABAPENTIN 100 MG CAPSULE PO SCH (06:45)
[2023-06-22] MEDS: TAMSULOSIN HCL 0.4 MG CAP PO SCH ×2 (08:37→22:23)
[2023-06-22] MEDS: HYDROmorphone HCl 2 MG/ML VIAL IVPB PRN (08:38)
[2023-06-22] MEDS ORDERED: HYDROmorphone HCl 2 MG/ML VIAL IVPB PRN (09:58)
[2023-06-22] MEDS: PANTOPRAZOLE 40 MG TABLET PO SCH (10:50)
[2023-06-22] MEDS: ENOXAPARIN NA (PORCINE) 40 MG/0.4 ML DISP.SYRIN SQ SCH (10:50)
[2023-06-22] MEDS: CEFTRIAXONE 1 GM in DEXTROSE 5%-WATER - 50 ML IVPB SCH (10:50)
[2023-06-22] MEDS: KETOROLAC TROMETHAMINE 30 MG/1 ML VIAL IVPUSH PRN (12:51)
[2023-06-22] MEDS: GABAPENTIN 400 MG CAPSULE PO SCH ×2 (15:05→22:24)
[2023-06-22] MEDS: NICOTINE 7 MG/24 HOURS TOPICAL PATCH TD SCH (22:24)
[2023-06-23] MEDS: ACETAMINOPHEN 500 MG TABLET (FP) PO SCH ×4 (01:14→17:45)
[2023-06-23] MEDS: GABAPENTIN 400 MG CAPSULE PO SCH ×3 (05:31→21:01)
[2023-06-23] MEDS: CYCLOBENZAPRINE HCL 10 MG TABLET (FP) PO SCH ×3 (05:31→21:01)
[2023-06-23] MEDS: TAMSULOSIN HCL 0.4 MG CAP PO SCH ×2 (10:15→21:01)
[2023-06-23] MEDS: CEFTRIAXONE 1 GM in DEXTROSE 5%-WATER - 50 ML IVPB SCH (10:16)
[2023-06-23] MEDS: PANTOPRAZOLE 40 MG TABLET PO SCH (10:16)
[2023-06-23] MEDS: ENOXAPARIN NA (PORCINE) 40 MG/0.4 ML DISP.SYRIN SQ SCH (10:16)
[2023-06-23] MEDS: traMADol HCL 50 MG TABLET PO PRN ×2 (12:24→21:29)
[2023-06-23 13:18] VITALS: BMI 30.9
[2023-06-23 14:59] VITALS: RESP 20
[2023-06-23] MEDS ORDERED: SENNOSIDES 8.6MG TABLET (FP) PO PRN (20:33)
[2023-06-23] MEDS: NICOTINE 7 MG/24 HOURS TOPICAL PATCH TD SCH (21:01)
[2023-06-24] MEDS: ACETAMINOPHEN 500 MG TABLET (FP) PO SCH ×3 (00:39→12:16)
[2023-06-24] MEDS: GABAPENTIN 400 MG CAPSULE PO SCH (05:44)
[2023-06-24] MEDS: CYCLOBENZAPRINE HCL 10 MG TABLET (FP) PO SCH (05:45)
[2023-06-24] MEDS: CEFTRIAXONE 1 GM in DEXTROSE 5%-WATER - 50 ML IVPB SCH (10:38)
[2023-06-24] MEDS: ENOXAPARIN NA (PORCINE) 40 MG/0.4 ML DISP.SYRIN SQ SCH (10:40)
[2023-06-24] MEDS: TAMSULOSIN HCL 0.4 MG CAP PO SCH (10:40)
[2023-06-24] MEDS: PANTOPRAZOLE 40 MG TABLET PO SCH (10:40)
[2023-06-24] MEDS ORDERED: CEPHALEXIN MONOHYDRATE 500 MG CAPSULE (UD) PO SCH (12:00)
[2023-06-24 13:03] VITALS: BP 134/63; PULSE 89; TEMP 98
== END 2023-06-24 13:01 | disposition home or self-care (01) | DRG 463 ==
LOC: JER 22:30 → JERBED 06-17 08:13 → J8W 06-17 10:35
PROVIDERS: ADMIT Internal Medicine; ATTEND Nurse Practitioner Acute Care
DX: N39.0 Urinary tract infection, site not specified (principal); J45.909 Unspecified asthma, uncomplicated; F41.8 Other specified anxiety disorders; D21.9 Benign neoplasm of connective and other soft tissue, unspecified; D64.9 Anemia, unspecified; N20.0 Calculus of kidney; B96.20 Unspecified Escherichia coli [E. coli] as the cause of diseases classified elsewhere; N12 Tubulo-interstitial nephritis, not specified as acute or chronic; N92.0 Excessive and frequent menstruation with regular cycle; R33.9 Retention of urine, unspecified; Z88.0 Allergy status to penicillin
CPT/HCPCS: 36415; 72131-TC; 74177-TC; 76830-TC; 80053; 80307; 81003; 83735; 84703; 85025; 85027; 87086; 87186; 93005; 93010; 97116-GP; 97161-GP; 99285-25; Q9967

== ENCOUNTER 2023-10-15 13:17 | Inpatient (IN) | payer OTHER ==
[2023-10-15 13:38] VITALS: BMI 31.3
[2023-10-15] MEDS ORDERED: METOCLOPRAMIDE HCL INJECTION 10 MG/2 ML VIAL IVPUSH ONE (14:32)
[2023-10-15] MEDS ORDERED: ACETAMINOPHEN 1000 MG/100 ML BAG IVPB ONE (14:32)
[2023-10-15] MEDS ORDERED: ACETAMINOPHEN INJECTION 100 ML IVPB ONE (14:34)
[2023-10-15] MEDS ORDERED: METOCLOPRAMIDE HCL INJECTION 10 MG/2 ML VIAL ONE (14:34)
[2023-10-15 15:20] LABS: BASO % 0.5 % (0-2.0); EOS % 3.4 % (0-4.5); HEMOGLOBIN 12.8 GM/dL (10.7-15.3); LYMPH % 24.1 % (8-40); MCH 24.6 pg (25.7-33.7); MCHC 31.9 g/dl (32.0-36.0); MEAN CELL VOLUME 76.9 fl (80-96); MEAN PLT VOLUME 8.4 fl (7.5-11.1); MONO % 5.7 % (3.8-10.2); NEUT % 66.3 % (42.8-82.8); PLATELET COUNT 203 10^3/uL (134-434); RBC 5.21 M/mm3 (3.60-5.2); RDW 19.5 % (11.6-15.6); WHITE BLOOD COUNT 5.8 K/mm3 (4.0-10.0)
[2023-10-15 15:38] LABS: POTASSIUM 3.6 mmol/L (3.5-5.1)
[2023-10-15 15:40] LABS: CALCIUM 8.7 mg/dL (8.5-10.1)
[2023-10-15 15:41] LABS: BLOOD UREA NITROGEN 20.2 mg/dL (7-18); MAGNESIUM 2.1 mg/dL (1.8-2.4)
[2023-10-15 15:45] LABS: BILIRUBIN,TOTAL 0.3 mg/dL (0.2-1); CREATININE 0.9 mg/dL (0.55-1.3); PHOSPHOROUS 3.2 mg/dL (2.5-4.9); TOT PROT 7.3 g/dl (6.4-8.2)
[2023-10-15 17:12] LABS: EPI CELLS 4 /uL (0-25.1); HYALINE CASTS 1 /uL (0-3.1); PH,URINE 6.5 (5.0-8.0); URINE APPEARANCE CLEAR; URINE BACTERIA >9,000 /uL (0-1359); URINE BILIRUBIN NEGATIVE (NEGATIVE); URINE COLOR YELLOW; URINE GLUCOSE (UA) NEGATIVE (NEGATIVE); URINE KETONE TRACE (NEGATIVE); URINE LEUK ESTERASE 2+ (NEGATIVE); URINE NITRITE POSITIVE (NEGATIVE); URINE PROTEIN TRACE (NEGATIVE); URINE RBC 88 /uL (0-23.9); URINE UROBILINOGEN 0.2 mg/dL (0.2-1.0); URINE WBC 395 /uL (0-25.8)
[2023-10-15] MEDS ORDERED: LACTATED RINGERS SOLUTION 1000 ML INFUS.BAG IV ONE (17:15)
[2023-10-15] MEDS ORDERED: ACETAMINOPHEN 500 MG TABLET (FP) PO PRN (17:49)
[2023-10-15] MEDS ORDERED: KETOROLAC TROMETHAMINE 15 MG/ML VIAL IVPUSH PRN (17:50)
[2023-10-15] MEDS ORDERED: AZTREONAM 1 GM VIAL (RESTRICTED TO ID) ONE (17:54)
[2023-10-15] MEDS ORDERED: LACTATED RINGERS SOLUTION 1,000 ML/1,000 ML INFUS.BAG IV SCH (18:00)
[2023-10-15] MEDS: AZTREONAM 1 GM in DEXTROSE 5%-WATER - 50 ML IVPB SCH (18:10)
[2023-10-15] MEDS ORDERED: HEPARIN NA (PORCINE) 5,000 UNITS/ML 1ML VIAL ONE (22:15)
[2023-10-15] MEDS: HEPARIN NA (PORCINE) 5,000 UNITS/ML 1ML VIAL SQ SCH (22:26)
[2023-10-16] MEDS ORDERED: diphenhydrAMINE HCL 25 MG CAPSULE (FP) PO ONE (00:57)
[2023-10-16] MEDS ORDERED: AZTREONAM 1 GM VIAL (RESTRICTED TO ID) ONE (01:03)
[2023-10-16] MEDS: AZTREONAM 1 GM in DEXTROSE 5%-WATER - 50 ML IVPB SCH ×3 (01:09→11:20)
[2023-10-16 06:44] LABS: BASO % 0.7 % (0-2.0); EOS % 5.3 % (0-4.5); HEMATOCRIT 37.8 % (32.4-45.2); LYMPH % 38.1 % (8-40); MCH 24.5 pg (25.7-33.7); MCHC 31.7 g/dl (32.0-36.0); MEAN CELL VOLUME 77.2 fl (80-96); MEAN PLT VOLUME 8.4 fl (7.5-11.1); MONO % 8.2 % (3.8-10.2); NEUT % 47.7 % (42.8-82.8); PLATELET COUNT 190 10^3/uL (134-434); RDW 19.4 % (11.6-15.6); WHITE BLOOD COUNT 4.7 K/mm3 (4.0-10.0)
[2023-10-16 06:48] LABS: POTASSIUM 3.7 mmol/L (3.5-5.1)
[2023-10-16 06:51] LABS: BLOOD UREA NITROGEN 21.8 mg/dL (7-18); CALCIUM 8.3 mg/dL (8.5-10.1)
[2023-10-16 06:54] LABS: CREATININE 0.9 mg/dL (0.55-1.3)
[2023-10-16] MEDS ORDERED: TAMSULOSIN HCL 0.4 MG CAP ONE (10:10)
[2023-10-16] MEDS ORDERED: HEPARIN NA (PORCINE) 5,000 UNITS/ML 1ML VIAL ONE (10:10)
[2023-10-16] MEDS: TAMSULOSIN HCL 0.4 MG CAP PO SCH (10:11)
[2023-10-16] MEDS: HEPARIN NA (PORCINE) 5,000 UNITS/ML 1ML VIAL SQ SCH ×2 (10:11→21:45)
[2023-10-16] MEDS ORDERED: CEFEPIME 1 GM/100 ML BAG IVPB ONE (12:42)
[2023-10-16] MEDS ORDERED: CEFEPIME 2 GM/100 ML BAG IVPB ONE (12:46)
[2023-10-16] MEDS: CEFEPIME 2 GM in DEXTROSE 5%-WATER 100 ML IVPB SCH ×2 (12:47→17:19)
[2023-10-17] MEDS: CEFEPIME 2 GM in DEXTROSE 5%-WATER 100 ML IVPB SCH ×3 (01:00→09:27)
[2023-10-17 02:55] VITALS: RESP 18
[2023-10-17] MEDS: HEPARIN NA (PORCINE) 5,000 UNITS/ML 1ML VIAL SQ SCH (09:11)
[2023-10-17] MEDS: TAMSULOSIN HCL 0.4 MG CAP PO SCH (09:11)
[2023-10-17] MEDS ORDERED: NAPROXEN 375 MG TABLET PO ONE (11:15)
[2023-10-17] MEDS ORDERED: CEFPODOXIME PROXETIL 100 MG TABLET PO ONE ×2 (12:00→22:00)
[2023-10-17 14:31] VITALS: BP 118/74; PULSE 69; TEMP 98.2
== END 2023-10-17 13:15 | disposition home or self-care (01) | DRG 463 ==
LOC: JER 13:17 → JERBED 17:04 → J6S 10-16 13:23
PROVIDERS: ADMIT Internal Medicine; ATTEND Internal Medicine
DX: N13.6 Pyonephrosis (principal); R51.9 Headache, unspecified; R35.0 Frequency of micturition; D25.9 Leiomyoma of uterus, unspecified; F41.0 Panic disorder [episodic paroxysmal anxiety]; D64.9 Anemia, unspecified; Z88.0 Allergy status to penicillin; B96.20 Unspecified Escherichia coli [E. coli] as the cause of diseases classified elsewhere
CPT/HCPCS: 0241U-QW; 36415; 70450-TC; 71045-TC-FY; 74177-TC; 80048; 80053; 81003; 83690; 83735; 84100; 84484; 84703; 85025; 87040; 87086; 87186; 93005; 93010; 99285-25; J1644; Q9967

== ENCOUNTER 2023-11-21 11:42 | Inpatient (IN) | payer BC, OTHER ==
[2023-11-21] MEDS ORDERED: KETOROLAC TROMETHAMINE 15 MG/ML VIAL IM ONE (13:27)
[2023-11-21] MEDS ORDERED: ONDANSETRON *ODT* 4 MG TABLET SL ONE (13:30)
[2023-11-21] MEDS ORDERED: METHOCARBAMOL 500 MG TABLET PO ONE (13:55)
[2023-11-21] MEDS ORDERED: KETOROLAC TROMETHAMINE 30 MG/1 ML VIAL ONE (14:05)
[2023-11-21] MEDS ORDERED: ONDANSETRON *ODT* 4 MG TABLET ONE (14:05)
[2023-11-21] MEDS ORDERED: METHOCARBAMOL 500 MG TABLET ONE (14:05)
[2023-11-21 14:28] LABS: BASO % 0.8 % (0-2.0); EOS % 2.2 % (0-4.5); HEMATOCRIT 39.6 % (32.4-45.2); HEMOGLOBIN 13.1 GM/dL (10.7-15.3); LYMPH % 13.9 % (8-40); MCH 26.4 pg (25.7-33.7); MEAN CELL VOLUME 79.9 fl (80-96); MONO % 5.3 % (3.8-10.2); NEUT % 77.8 % (42.8-82.8); PLATELET COUNT 175 10^3/uL (134-434); RBC 4.96 M/mm3 (3.60-5.2); RDW 18.6 % (11.6-15.6); WHITE BLOOD COUNT 7.2 K/mm3 (4.0-10.0)
[2023-11-21 14:33] LABS: INR 1.03 (0.83-1.09); PROTHROMBIN TIME (PATIENT) 11.9 SEC (9.7-13.0)
[2023-11-21 14:36] LABS: ACTIVATED PTT 21.2 SECONDS (25.2-36.5)
[2023-11-21 14:52] LABS: ALBUMIN 4.1 g/dl (3.4-5.0); BLOOD UREA NITROGEN 21.7 mg/dL (7-18); CALCIUM 9.7 mg/dL (8.5-10.1)
[2023-11-21 14:57] LABS: BILIRUBIN,TOTAL 0.5 mg/dL (0.2-1); TOT PROT 7.7 g/dl (6.4-8.2)
[2023-11-21] MEDS ORDERED: morphine CARPU-JECT 4 MG/1 ML DISP.SYRIN IVPUSH ONE (14:57)
[2023-11-21 15:27] LABS: EPI CELLS >36 /uL (0-25.1); HYALINE CASTS 25 /uL (0-3.1); PH,URINE 6.5 (5.0-8.0); URINE APPEARANCE CLOUDY; URINE BACTERIA >9,000 /uL (0-1359); URINE BILIRUBIN NEGATIVE (NEGATIVE); URINE COLOR YELLOW; URINE GLUCOSE (UA) NEGATIVE (NEGATIVE); URINE KETONE NEGATIVE (NEGATIVE); URINE LEUK ESTERASE 2+ (NEGATIVE); URINE NITRITE NEGATIVE (NEGATIVE); URINE PROTEIN 3+ (NEGATIVE); URINE RBC 232 /uL (0-23.9); URINE UROBILINOGEN 0.2 mg/dL (0.2-1.0); URINE WBC 1694 /uL (0-25.8)
[2023-11-21 15:28] LABS: HCG,QUALITATIVE URINE Negative
[2023-11-21] MEDS ORDERED: CIPROFLOXACIN 400 MG/D5W 400 MG/200 ML IVPB IVPB ONE (15:41)
[2023-11-21] MEDS ORDERED: HYDROmorphone HCl 2 MG/ML VIAL IVPUSH ONE (15:49)
[2023-11-21] MEDS ORDERED: HYDROmorphone HCl 2 MG/ML VIAL ONE (15:54)
[2023-11-21] MEDS ORDERED: FAMOTIDINE 20 MG/50 ML IVPB 20 MG/50 ML MG IVPB ONE (16:20)
[2023-11-21] MEDS ORDERED: FAMOTIDINE 10 MG/ML VIAL IVPB ONE (16:31)
[2023-11-21] MEDS ORDERED: methylPREDNISolone NA SUCC 125 MG/2 ML VIAL IVPUSH ONE (18:31)
[2023-11-21] MEDS ORDERED: methylPREDNISolone NA SUCC 125 MG/2 ML VIAL ONE (19:23)
[2023-11-21] MEDS ORDERED: SODIUM CHLORIDE 1,000 ML IV SCH (23:45)
[2023-11-21] MEDS ORDERED: LACTATED RINGERS SOLUTION 1,000 ML IV SCH (23:45)
[2023-11-22] MEDS ORDERED: ONDANSETRON 4 MG/2 ML VIAL IVPUSH PRN ×3 (00:01→12:11)
[2023-11-22] MEDS ORDERED: LINEZOLID 600 MG PREMIX BAG 600 MG/300 ML BAG IVPB SCH ×4 (00:15→22:00)
[2023-11-22] MEDS ORDERED: REMDESIVIR 200 MG in SODIUM CHLORIDE 250 ML IVPB ONE (00:30)
[2023-11-22] MEDS ORDERED: TAMSULOSIN HCL 0.4 MG CAP PO SCH (08:30)
[2023-11-22] MEDS ORDERED: ACETAMINOPHEN 1000 MG/100 ML BAG IVPB PRN ×3 (09:40→10:22)
[2023-11-22] MEDS ORDERED: NICOTINE 21 MG/24 HOURS TOPICAL PATCH TD SCH (10:00)
[2023-11-22 10:02] LABS: BASO % 0.1 % (0-2.0); HEMATOCRIT 35.6 % (32.4-45.2); HEMOGLOBIN 11.9 GM/dL (10.7-15.3); LYMPH % 9.8 % (8-40); MCH 26.8 pg (25.7-33.7); MCHC 33.4 g/dl (32.0-36.0); MEAN CELL VOLUME 80.3 fl (80-96); MEAN PLT VOLUME 8.3 fl (7.5-11.1); MONO % 1.5 % (3.8-10.2); NEUT % 88.6 % (42.8-82.8); PLATELET COUNT 174 10^3/uL (134-434); RBC 4.44 M/mm3 (3.60-5.2); RDW 18.4 % (11.6-15.6); WHITE BLOOD COUNT 5.8 K/mm3 (4.0-10.0)
[2023-11-22] MEDS ORDERED: HYDROmorphone HCl 2 MG/ML VIAL ONE (10:17)
[2023-11-22] MEDS ORDERED: HYDROmorphone HCl 2 MG/ML VIAL IVPUSH ONE (10:30)
[2023-11-22] MEDS ORDERED: ACETAMINOPHEN INJECTION 100 ML IVPB ONE (10:40)
[2023-11-22] MEDS ORDERED: ceFAZolin SODIUM 1 GM VIAL ONE (10:41)
[2023-11-22] MEDS ORDERED: DEXAMETHASONE SOD PHOSPHATE 4 MG/1 ML VIAL ONE (10:41)
[2023-11-22] MEDS ORDERED: ALBUTEROL SO4 HFA INHALER IH ONE (10:41)
[2023-11-22] MEDS ORDERED: KETOROLAC TROMETHAMINE 30 MG/1 ML VIAL ONE (10:41)
[2023-11-22] MEDS ORDERED: PROPOFOL 20 ML ONE ×2 (10:41→10:45)
[2023-11-22] MEDS ORDERED: ONDANSETRON 4 MG/2 ML VIAL ONE (10:41)
[2023-11-22] MEDS ORDERED: SODIUM CHLORIDE 0.9% P/F 10 ML VIAL IJ ONE (10:41)
[2023-11-22] MEDS ORDERED: MIDAZOLAM HCL 2 MG/2 ML SINGLE DOSE VIAL ONE (10:46)
[2023-11-22 10:47] LABS: POTASSIUM 4.1 mmol/L (3.5-5.1)
[2023-11-22 10:49] LABS: BLOOD UREA NITROGEN 22.7 mg/dL (7-18); CALCIUM 8.8 mg/dL (8.5-10.1); MAGNESIUM 1.5 mg/dL (1.8-2.4)
[2023-11-22 10:52] LABS: CREATININE 1.1 mg/dL (0.55-1.3); PHOSPHOROUS 2.5 mg/dL (2.5-4.9)
[2023-11-22 10:54] LABS: BILIRUBIN,TOTAL 0.2 mg/dL (0.2-1); TOT PROT 6.7 g/dl (6.4-8.2)
[2023-11-22 11:04] LABS: ALBUMIN 3.2 g/dl (3.4-5.0)
[2023-11-22] MEDS ORDERED: ceFAZolin SODIUM 1 GM VIAL IVPB ONE (11:25)
[2023-11-22] MEDS ORDERED: IOHEXOL 300 MG/ML INFUS..BTL IJ ONE (11:33)
[2023-11-22] MEDS ORDERED: LACTATED RINGERS SOLUTION 1,000 ML IV SCH (12:00)
[2023-11-22] MEDS ORDERED: cefTRIAXone SODIUM 1 GM VIAL ONE (17:05)
[2023-11-22] MEDS: CEFTRIAXONE 1 GM in DEXTROSE 5%-WATER - 50 ML IVPB SCH (17:11)
[2023-11-22 18:21] VITALS: BMI 29.7
[2023-11-22] MEDS: SODIUM CHLORIDE 1,000 ML IV SCH (18:33)
[2023-11-22] MEDS: LINEZOLID 600 MG PREMIX BAG 600 MG/300 ML BAG IVPB SCH (21:19)
[2023-11-23] MEDS: ACETAMINOPHEN 1000 MG/100 ML BAG IVPB PRN ×2 (02:29→08:19)
[2023-11-23] MEDS ORDERED: diphenhydrAMINE HCL 25 MG CAPSULE (FP) PO ONE (03:27)
[2023-11-23] MEDS: SODIUM CHLORIDE 1,000 ML IV SCH ×2 (05:52→12:30)
[2023-11-23] MEDS: TAMSULOSIN HCL 0.4 MG CAP PO SCH (08:20)
[2023-11-23] MEDS ORDERED: HYDROmorphone HCl 2 MG/ML VIAL IVPB ONE (08:56)
[2023-11-23] MEDS ORDERED: REMDESIVIR 100 MG in SODIUM CHLORIDE 250 ML IVPB SCH (10:00)
[2023-11-23] MEDS: NICOTINE 21 MG/24 HOURS TOPICAL PATCH TD SCH (10:22)
[2023-11-23 11:11] LABS: BASO % 0.1 % (0-2.0); EOS % 0.2 % (0-4.5); HEMATOCRIT 33.5 % (32.4-45.2); HEMOGLOBIN 11.3 GM/dL (10.7-15.3); MCH 26.8 pg (25.7-33.7); MCHC 33.7 g/dl (32.0-36.0); MEAN CELL VOLUME 79.4 fl (80-96); MEAN PLT VOLUME 8.3 fl (7.5-11.1); MONO % 5.1 % (3.8-10.2); NEUT % 78.6 % (42.8-82.8); PLATELET COUNT 157 10^3/uL (134-434); RBC 4.22 M/mm3 (3.60-5.2); RDW 18.7 % (11.6-15.6); WHITE BLOOD COUNT 9.7 K/mm3 (4.0-10.0)
[2023-11-23 11:15] LABS: POTASSIUM 3.6 mmol/L (3.5-5.1)
[2023-11-23 11:23] LABS: CALCIUM 8.6 mg/dL (8.5-10.1)
[2023-11-23 11:25] LABS: ALBUMIN 3.1 g/dl (3.4-5.0)
[2023-11-23 11:26] LABS: BLOOD UREA NITROGEN 21.9 mg/dL (7-18)
[2023-11-23 11:29] LABS: BILIRUBIN,TOTAL 0.2 mg/dL (0.2-1); TOT PROT 6.3 g/dl (6.4-8.2)
[2023-11-23] MEDS: LINEZOLID 600 MG PREMIX BAG 600 MG/300 ML BAG IVPB SCH ×2 (11:37→21:12)
[2023-11-23] MEDS: REMDESIVIR 100 MG in SODIUM CHLORIDE 230 ML IVPB SCH (13:52)
[2023-11-23] MEDS: CEFTRIAXONE 1 GM in DEXTROSE 5%-WATER - 50 ML IVPB SCH (15:47)
[2023-11-23] MEDS: HYDROmorphone HCl 2 MG/ML VIAL IVPB PRN (16:59)
[2023-11-23] MEDS: MELATONIN 5 MG TABLETS PO PRN (20:12)
[2023-11-23] MEDS: MINERAL OIL/PET HY-PHL TOPICAL OINTMENT 454 GM JAR TP SCH (21:25)
[2023-11-24] MEDS: ACETAMINOPHEN 1000 MG/100 ML BAG IVPB PRN (00:03)
[2023-11-24] MEDS: HYDROmorphone HCl 2 MG/ML VIAL IVPB PRN ×2 (03:37→16:02)
[2023-11-24] MEDS: NICOTINE 21 MG/24 HOURS TOPICAL PATCH TD SCH (09:56)
[2023-11-24] MEDS: LINEZOLID 600 MG PREMIX BAG 600 MG/300 ML BAG IVPB SCH ×2 (09:56→22:04)
[2023-11-24] MEDS: TAMSULOSIN HCL 0.4 MG CAP PO SCH (09:56)
[2023-11-24] MEDS: MINERAL OIL/PET HY-PHL TOPICAL OINTMENT 454 GM JAR TP SCH ×2 (10:02→22:12)
[2023-11-24 10:36] VITALS: RESP 18
[2023-11-24] MEDS: CEFTRIAXONE 1 GM in DEXTROSE 5%-WATER - 50 ML IVPB SCH (11:59)
[2023-11-24] MEDS: REMDESIVIR 100 MG in SODIUM CHLORIDE 230 ML IVPB SCH (12:49)
[2023-11-25] MEDS: HYDROmorphone HCl 2 MG/ML VIAL IVPB PRN ×2 (01:12→22:12)
[2023-11-25] MEDS: TAMSULOSIN HCL 0.4 MG CAP PO SCH (08:10)
[2023-11-25] MEDS: LINEZOLID 600 MG PREMIX BAG 600 MG/300 ML BAG IVPB SCH ×2 (10:15→21:22)
[2023-11-25] MEDS: NICOTINE 21 MG/24 HOURS TOPICAL PATCH TD SCH (10:15)
[2023-11-25] MEDS: MINERAL OIL/PET HY-PHL TOPICAL OINTMENT 454 GM JAR TP SCH ×2 (10:19→21:23)
[2023-11-25 11:37] LABS: BASO % 0.7 % (0-2.0); EOS % 4.8 % (0-4.5); HEMATOCRIT 39.1 % (32.4-45.2); HEMOGLOBIN 12.8 GM/dL (10.7-15.3); LYMPH % 23.7 % (8-40); MCH 26.3 pg (25.7-33.7); MCHC 32.7 g/dl (32.0-36.0); MEAN CELL VOLUME 80.4 fl (80-96); MEAN PLT VOLUME 7.9 fl (7.5-11.1); MONO % 5.7 % (3.8-10.2); NEUT % 65.1 % (42.8-82.8); PLATELET COUNT 154 10^3/uL (134-434); RBC 4.87 M/mm3 (3.60-5.2); RDW 18.3 % (11.6-15.6)
[2023-11-25 11:55] LABS: POTASSIUM 3.2 mmol/L (3.5-5.1)
[2023-11-25 12:05] LABS: BLOOD UREA NITROGEN 19.2 mg/dL (7-18); CALCIUM 8.9 mg/dL (8.5-10.1)
[2023-11-25 12:06] LABS: ALBUMIN 3.2 g/dl (3.4-5.0)
[2023-11-25 12:10] LABS: BILIRUBIN,TOTAL 0.3 mg/dL (0.2-1); TOT PROT 6.5 g/dl (6.4-8.2)
[2023-11-25] MEDS ORDERED: POTASSIUM CHLORIDE ORAL LIQUID 20 MEQ/15 ML PO ONE (13:35)
[2023-11-25] MEDS: ACETAMINOPHEN 1000 MG/100 ML BAG IVPB PRN (14:19)
[2023-11-25] MEDS: MELATONIN 5 MG TABLETS PO PRN (22:13)
[2023-11-25] MEDS: SIMETHICONE 80 MG TAB.CHEW (FP) PO PRN (23:25)
[2023-11-26] MEDS: TAMSULOSIN HCL 0.4 MG CAP PO SCH (09:27)
[2023-11-26] MEDS: NICOTINE 21 MG/24 HOURS TOPICAL PATCH TD SCH (09:27)
[2023-11-26] MEDS: MINERAL OIL/PET HY-PHL TOPICAL OINTMENT 454 GM JAR TP SCH ×2 (09:27→23:28)
[2023-11-26] MEDS: LINEZOLID 600 MG PREMIX BAG 600 MG/300 ML BAG IVPB SCH (09:28)
[2023-11-26 11:18] LABS: BASO % 0.7 % (0-2.0); EOS % 5.4 % (0-4.5); HEMATOCRIT 39.5 % (32.4-45.2); HEMOGLOBIN 13.2 GM/dL (10.7-15.3); LYMPH % 24.3 % (8-40); MCH 26.5 pg (25.7-33.7); MCHC 33.4 g/dl (32.0-36.0); MEAN CELL VOLUME 79.4 fl (80-96); MONO % 6.7 % (3.8-10.2); NEUT % 62.9 % (42.8-82.8); PLATELET COUNT 193 10^3/uL (134-434); RBC 4.97 M/mm3 (3.60-5.2); RDW 18.5 % (11.6-15.6); WHITE BLOOD COUNT 5.4 K/mm3 (4.0-10.0)
[2023-11-26 11:55] LABS: POTASSIUM 3.6 mmol/L (3.5-5.1)
[2023-11-26 12:09] LABS: ALBUMIN 3.2 g/dl (3.4-5.0); BLOOD UREA NITROGEN 23.4 mg/dL (7-18); CALCIUM 8.7 mg/dL (8.5-10.1)
[2023-11-26 12:11] LABS: CREATININE 0.9 mg/dL (0.55-1.3)
[2023-11-26 12:12] LABS: BILIRUBIN,TOTAL 0.4 mg/dL (0.2-1)
[2023-11-26 12:14] LABS: TOT PROT 6.7 g/dl (6.4-8.2)
[2023-11-26] MEDS: SIMETHICONE 80 MG TAB.CHEW (FP) PO PRN (14:00)
[2023-11-26] MEDS: LINEZOLID 600 MG TABLET (RESTRICTED TO ID) PO ONE (16:36)
[2023-11-26] MEDS: HYDROmorphone HCl 2 MG/ML VIAL IVPB PRN (17:20)
[2023-11-26] MEDS ORDERED: SODIUM CHLORIDE 1,000 ML IV STA (21:08)
[2023-11-26] MEDS ORDERED: NALOXONE HCL 0.4 MG/ML VIAL IVPUSH PRN (21:14)
[2023-11-26 21:46] LABS: HEMOGLOBIN 14.9 GM/dL (10.7-15.3); MCH 26.6 pg (25.7-33.7); MCHC 33.1 g/dl (32.0-36.0); MEAN CELL VOLUME 80.5 fl (80-96); MEAN PLT VOLUME 7.6 fl (7.5-11.1); PLATELET COUNT 229 10^3/uL (134-434); RBC 5.59 M/mm3 (3.60-5.2); RDW 18.6 % (11.6-15.6); WHITE BLOOD COUNT 7.4 K/mm3 (4.0-10.0)
[2023-11-26] MEDS ORDERED: BISMUTH SUBSALICYLATE 524 MG/30 ML PO PRN (21:59)
[2023-11-26 22:15] LABS: LACTIC ACID 2.1 mmol/L (0.4-2.0)
[2023-11-27] MEDS: NICOTINE 21 MG/24 HOURS TOPICAL PATCH TD SCH (09:23)
[2023-11-27] MEDS: TAMSULOSIN HCL 0.4 MG CAP PO SCH (09:23)
[2023-11-27] MEDS: MINERAL OIL/PET HY-PHL TOPICAL OINTMENT 454 GM JAR TP SCH (09:24)
[2023-11-27 10:39] LABS: BASO % 0.4 % (0-2.0); EOS % 3.5 % (0-4.5); HEMATOCRIT 40.6 % (32.4-45.2); HEMOGLOBIN 13.6 GM/dL (10.7-15.3); LYMPH % 20.3 % (8-40); MCH 26.5 pg (25.7-33.7); MCHC 33.6 g/dl (32.0-36.0); MEAN CELL VOLUME 78.8 fl (80-96); MEAN PLT VOLUME 7.9 fl (7.5-11.1); MONO % 7.5 % (3.8-10.2); NEUT % 68.3 % (42.8-82.8); PLATELET COUNT 243 10^3/uL (134-434); RBC 5.14 M/mm3 (3.60-5.2); RDW 18.3 % (11.6-15.6); WHITE BLOOD COUNT 7.2 K/mm3 (4.0-10.0)
[2023-11-27 10:58] LABS: POTASSIUM 3.7 mmol/L (3.5-5.1)
[2023-11-27 11:01] LABS: CALCIUM 9.4 mg/dL (8.5-10.1)
[2023-11-27 11:02] LABS: ALBUMIN 3.5 g/dl (3.4-5.0); BLOOD UREA NITROGEN 23.3 mg/dL (7-18)
[2023-11-27] MEDS: LINEZOLID 600 MG TABLET (RESTRICTED TO ID) PO ONE ×3 (11:03→11:46)
[2023-11-27 11:05] LABS: CREATININE 0.8 mg/dL (0.55-1.3)
[2023-11-27 11:07] LABS: BILIRUBIN,TOTAL 0.5 mg/dL (0.2-1); TOT PROT 7.1 g/dl (6.4-8.2)
[2023-11-27] MEDS ORDERED: ACETAMINOPHEN 325 MG TABLET (FP) PO PRN (11:49)
[2023-11-27] MEDS: SIMETHICONE 80 MG TAB.CHEW (FP) PO PRN (14:50)
[2023-11-27 15:36] VITALS: BP 136/75; PULSE 100; TEMP 98.4
[2023-11-27] MEDS ORDERED: IBUPROFEN 600 MG TABLET (FP) PO PRN (16:49)
== END 2023-11-27 18:09 | disposition home or self-care (01) | DRG 659 ==
LOC: JER 11:42 → JERBED 19:58 → J6S 11-22 17:54
PROVIDERS: ADMIT Internal Medicine; ATTEND Internal Medicine
PROC: XW033E5 Introduction of Remdesivir Anti-infective into Peripheral Vein, Percutaneous Approach, New Technology Group 5 (ICD-10-PCS; 2023-11-21)
PROC: 0T788DZ Dilation of Bilateral Ureters with Intraluminal Device, Via Natural or Artificial Opening Endoscopic (ICD-10-PCS; principal; 2023-11-22 11:00)
DX: N13.6 Pyonephrosis (principal); U07.1 COVID-19; F17.210 Nicotine dependence, cigarettes, uncomplicated
CPT/HCPCS: 0241U-QW; 36415; 74177-TC; 76000-TC-FY; 80053; 81003; 82962; 83605; 83690; 83735; 84100; 84703; 85025; 85027; 85610; 85730; 87040; 87086; 87186; 93005; 93010; 94760; 99285-25; C2617; J0248; Q0162